=== PATIENT | male | born 1945 | race Caucasian/White ===

== ENCOUNTER → 2016-07-05 | Outpatient (CLI) | payer BC ==
[~2016-07-05] MED LIST: ASCO10003 PO; CALC-20 PO; CLC6 PO; CYAN100020 PO; LSN5 PO; LSX40 PO; SYMIN160 INH; UMEC1INH INH; WARF-246 PO
--- NOTE | 2016-07-05 11:29 | DIAGNOSTIC IMAGING REPORT ---
ABDOMINAL AORTIC ULTRASOUND CLINICAL HISTORY: Aneurysm of abdominal aorta. COMPARISON STUDY: Abdominal aortic ultrasound October 17, 2009 and April 20, 2013. FINDINGS: There is extensive atherosclerotic plaque of the abdominal aorta. The proximal abdominal aorta measures 2.8 x 2.9 cm. The mid abdominal aorta measures 2.2 x 2.2 cm. The mid to distal abdominal aorta measures 4.2 x 3.8 cm. This has minimally increased since exam of April 20, 2013 when it measured 3.8 cm in maximal dimension. IMPRESSION: Minimal increase in size of a 4.2 cm infrarenal abdominal aortic aneurysm since exam of April 20, 2013. Electronically signed by: Ludin Whitfield M.D. 07/05/2016 11:27 AM Dictated Date/Time: 07/05/2016 11:22 AM
== END | disposition home or self-care (01) ==
LOC: C.ULTR 10:26
PROVIDERS: ATTEND Internal Medicine
DX: I71.4 Abdominal aortic aneurysm, without rupture (principal)

== ENCOUNTER → 2017-01-08 | Day surgery (SDC) | payer BC ==
[2016-12-31 13:32] VITALS: Ht 180.3 cm; Wt 100.0 kg
[~2017-01-08] VITALS: Ht 180.3 cm; Wt 100.0 kg
[~2017-01-08] MED LIST changes: +500ML BSS 0.3ML EPI 1:1000PF IRRIG ONE; +ACETAMINOPHEN 325 MG TAB PO PRN; +AMVISC PLUS 0.8ML SYRINGE INT OCU ONE; +ATROPINE SULFATE 0.1 MG/ML 5ML SYR IV PRN; +AcetaZOLAMIDE 250 MG TAB PO SCH; +BETAXOLOL HCL 0.25% OP SUSP PER DROP CHARGE OPR SCH; +BRIMONIDINE TART 0.2% OP SOLN PER DROP CHARGE ONE; +BSS FLUSH ONE; +ENDOCOAT 0.85ML SYRINGE INT OCU ONE; +EpHEDrine SULFATE INJ 50 MG/ML AMP IV PRN; +EpINEphrine INJ 1MG/ML AMP 1 MG/ML AMP ONE; +LACTATED RINGER'S 1000ML 500 ML IV SCH; +LIDOCAINE 4% OP SOLN DROP CHARGE ONE; +LIDOCAINE 4% OP SOLN DROP CHARGE OPR SCH; +LIDOCAINE HCL 1% MPF 2 ML VIAL ONE; +MIDAZOLAM HCL 1 MG/ML 2ML VIAL ONE; +MIX: 4ML BSS 1ML EPI 1:1000 PF INSTIL ONE; +MOXIFLOXACIN OPH SOLN PER DROP CHARGE ONE; +OCUCOAT 1 ML SOLN IO ONE; +POVIDONE-IODINE OP SOLN 30 ML BTL ONE; +PROPARACAINE 0.5% OP SOLN PER DROP CHARGE OPR SCH; +TOBRAMYCIN/DEXAMETHASONE OPH OINT PER APPLN CHARGE ONE
--- NOTE | 2017-01-08 09:53 | History & Physical Bridge - SC ---
H&P Re-Evaluation Bridge Note: I have examined the patient, reviewed the History & Physical and in the interval since the performance of the History & Physical I have noted the following changes of clinical significance: No changes noted
[2017-01-08] MEDS: PHENYLEPHRINE HCL 2.5% OP SOLN PER DROP CHARGE OPR SCH ×2 (11:04→11:10)
[2017-01-08] MEDS: TROPICAMIDE 1% OP SOLN PER DROP CHARGE OPR SCH ×2 (11:05→11:10)
[2017-01-08] MEDS: CYCLOPENTOLATE HCL 1% OP SOLN PER DROP CHARGE OPR SCH ×2 (11:06→11:11)
[2017-01-08] MEDS: MOXIFLOXACIN OPH SOLN PER DROP CHARGE OPR SCH ×2 (11:09→11:17)
--- NOTE | 2017-01-08 11:41 | Discharge Instructions-SurgCtr ---
Discharge Instructions Date of Service Jan 08, 2017. Visit Reason for Visit: Right Cataract Discharge Discharge Diagnosis / Problem: lens implant right eye Discharge Goals Goal(s): Improve function Activity Recommendations Activity Limitations: resume your previous activity Lifting Limitations: no more than 10 pounds Exercise/Sports Limitations: gradually increase as tolerated May Resume Sexual Activity: when tolerated Shower/Bathe: tomorrow Driving or Machine Use: resume 1 day after discharge Anesthesia . Post Anesthesia Instructions: If you have had General Anesthesia or IV Sedation: * Do not drive today. * Resume driving when surgeon permits. * Do not make important decisions or sign legal documents today. * Call surgeon for: 1. Temperature elevations greater than 101 degrees F. 2. Uncontrollable pain. 3. Excessive bleeding. 4. Persistent nausea and vomiting. 5. Medication intolerance (nausea, vomiting or rash). * For nausea and vomiting use only clear liquids such as: tea, soda, bouillon until nausea subsides, then gradually increase diet as tolerated. * If you have any concerns or questions, call your surgeon's office. If physician is unavailable and it is an emergency, call 911 or go to the nearest emergency room. . Instructions / Follow-Up Instructions / Follow-Up ACTIVITY RECOMMENDATIONS: * Light activities. * Mild irritation and blurred vision are common for the first few days. * You may walk outside, read, watch television. * Redness around the white part of the eye is common. MEDICATIONS: Resume previous medications unless instructed otherwise by your surgeon. * Take white Diamox (Acetazolamide) tablet at 2 pm today. Start all eye drops at 2 pm today: * Eye drops (today and tomorrow): Prednisone - one drop in operative eye every 3 hours while awake Ofloxacin - one drop in operative eye every 3 hours while awake SPECIAL CARE INSTRUCTIONS: * Tape plastic shield over eye to sleep at night. Call your doctor at with any concerns or problems. FOLLOW UP VISIT: Follow-up with Dr Sultana at [place] office as scheduled. Diet Recommendations Home Diet: no limitations Procedures Procedures Performed: cataract extraction with lens implant Pending Studies Studies pending at discharge: no Medical Emergencies . Who to Call and When: Medical Emergencies: If at any time you feel your situation is an emergency, please call 911 immediately. . Non-Emergent Contact Non-Emergency issues call your: Advertising Sales Agent Call Non-Emergent contact if: your pain is not controlled [phone] . . "Provider Documentation" section prepared by Tej Sultana. .
--- NOTE | 2017-01-08 11:43 | [facility] Operative Report ---
Operative Report Date of Service Jan 08, 2017. Operative Report 1. PREOPERATIVE DIAGNOSIS: Senile nuclear cataract, right eye. 2. POSTOPERATIVE DIAGNOSIS: Senile nuclear cataract, right eye. 3. PROCEDURE: Phacoemulsification of right cataract with posterior chamber lens implant, type Bausch [employer] Lomb, model MI60L, power +18.5 diopters. ANESTHESIA: Local standby. SURGEON: Dr. Sultana. COMPLICATIONS: None. OPERATING TIME: 10 minutes. 4. OPERATION AND FINDINGS: DESCRIPTION OF PROCEDURE: The right pupil was dilated. The anesthetic was administered using a topical technique. The right eye was prepped and draped. A speculum was placed. A clear corneal incision was formed. The chamber was filled with Amvisc Plus and Endocoat. Epinephrine solution was used. A paracentesis was placed. A capsulorrhexis was performed. The nucleus was hydrodissected. The lens was removed with phacoemulsification. Time was 6.90 seconds. The aspiration unit was used to remove the cortex. The capsule was filled with Amvisc Plus. The lens implant was folded and placed into the capsule. The incision was hydrated. The Amvisc was aspirated. The wound was secure. The chamber was deep. The pupil was round. Brimonidine, TobraDex ointment and Vigamox solution were placed. The speculum was removed. The patient was returned to the Recovery Room in stable condition. I attest to the content of the Intraoperative Record and any orders documented therein. Any exceptions are noted below. The scribe's documentation has been prepared in my presence, under my direction and personally reviewed by me in its entirety. I confirm that the note above accurately reflects all work, treatment, procedures, and medical decision making performed by me. I personally scribed for Tej Sultana M.D. ([email or web address]) on 01/08/17 at 11:43. Electronically submitted by Mena Waller ([email or web address]).
[2017-01-08 12:08] VITALS: BP 156/84; PULSE 76; O2SAT 95
--- NOTE | 2017-01-08 12:10 | Anesthesia Progress Nt - [facility] ---
Anesthesia Post Op Note Date & Time Jan 08, 2017 at 12:10 Vital Signs Pain Intensity: 0 Vital Signs Past 12 Hours Date Time Temp Pulse Resp B/P (MAP) Pulse Ox O2 Delivery O2 Flow Rate FiO2 01/08/17 12:08 76 16 156/84 (108) 95 Room Air 01/08/17 11:45 36.6 68 16 122/72 (89) 97 Room Air 01/08/17 10:57 36.8 71 18 154/85 (108) 95 Room Air Notes Mental Status: alert / awake / arousable, participated in evaluation Pt Amnestic to Procedure: Yes Nausea / Vomiting: adequately controlled Pain: adequately controlled Airway Patency, RR, SpO2: stable & adequate BP & HR: stable & adequate Hydration State: stable & adequate Anesthetic Complications: no major complications apparent
== END | disposition home or self-care (01) ==
LOC: X.SURG 10:31
PROVIDERS: ATTEND Specialist
DX: H25.11 Age-related nuclear cataract, right eye (principal); J44.9 Chronic obstructive pulmonary disease, unspecified; I10 Essential (primary) hypertension; I48.91 Unspecified atrial fibrillation; Z79.01 Long term (current) use of anticoagulants; E66.9 Obesity, unspecified; Z87.891 Personal history of nicotine dependence

== ENCOUNTER → 2017-01-13 | Day surgery (SDC) | payer BC ==
[~2017-01-13] VITALS: Ht 180.3 cm; Wt 100.0 kg
[~2017-01-13] MED LIST changes: -500ML BSS 0.3ML EPI 1:1000PF IRRIG ONE; -ACETAMINOPHEN 325 MG TAB PO PRN; -AMVISC PLUS 0.8ML SYRINGE INT OCU ONE; -AcetaZOLAMIDE 250 MG TAB PO SCH; -BETAXOLOL HCL 0.25% OP SUSP PER DROP CHARGE OPR SCH; -BRIMONIDINE TART 0.2% OP SOLN PER DROP CHARGE ONE; -BSS FLUSH ONE; -ENDOCOAT 0.85ML SYRINGE INT OCU ONE; -EpINEphrine INJ 1MG/ML AMP 1 MG/ML AMP ONE; -LACTATED RINGER'S 1000ML 500 ML IV SCH; -LIDOCAINE 4% OP SOLN DROP CHARGE ONE; -LIDOCAINE 4% OP SOLN DROP CHARGE OPR SCH; -LIDOCAINE HCL 1% MPF 2 ML VIAL ONE; +LIDOCAINE HCL 2% 2 ML VIAL (20MG/ML) ONE; -MIDAZOLAM HCL 1 MG/ML 2ML VIAL ONE; -MIX: 4ML BSS 1ML EPI 1:1000 PF INSTIL ONE; -MOXIFLOXACIN OPH SOLN PER DROP CHARGE ONE; -OCUCOAT 1 ML SOLN IO ONE; -POVIDONE-IODINE OP SOLN 30 ML BTL ONE; -PROPARACAINE 0.5% OP SOLN PER DROP CHARGE OPR SCH; +PROPOFOL IV EMULSION 10 MG/ML 20 ML VIAL IV ONE; +SODIUM CHLORIDE 0.9% 500ML 500 ML IV ONE; -TOBRAMYCIN/DEXAMETHASONE OPH OINT PER APPLN CHARGE ONE
[2017-01-13 10:56] VITALS: Ht 180.3 cm; Wt 100.0 kg
--- NOTE | 2017-01-13 11:01 | Endo History and Physical ---
History & Physical Date of Service: Jan 13, 2017. Chief Complaint: History of colon polyps Referring Physician: Dr. Salazar History of Present Illness 71 yo CM who presents for colonoscopy secondary to history of colon polyps. Past Medical History Atrial Fibrillation, CHF, COPD Past Surgical History Hx Cardiac Surgery: No Hx Internal Defibrillator: No Hx Pacemaker: No Hx Abdominal Surgery: No Hx of Implantable Prosthesis: No Hx Post-Op Nausea and Vomiting: No Hx Cancer Surgery: No Hx Thoracic Surgery: No Hx Orthopedic: No Hx Urinary Tract Surgery: No Family History Colon CA Social History Smoking Status: Former Smoker Hx Substance Use: No Hx Alcohol Use: Yes (~2 BEERS 4X/WEEK) Allergies Coded Allergies: No Known Allergies (Verified , 01/13/17) Current Medications Reported Home Medications Medications Dose Route/Sig Max Daily Dose Days Date Category Dose Instructions Warfarin Sodium 5 Mg Tab 2.5 Mg PO 3XWK 08/22/15 Reported MON,WED,FRI Warfarin Sodium 5 Mg Tab 5 Mg PO 5XWK 08/22/15 Reported SUN,TUES,THURS,SAT Incruse Ellipta (Umeclidinium [place]) 62.5 Mcg/Inh Inh 1 Puff INH NOON 08/22/15 Reported Lisinopril 5 Mg Tab 2.5 Mg PO NOON 08/22/15 Reported Furosemide 40 Mg Tab 40 Mg PO NOON 08/22/15 Reported Vitamin B12 (Cyanocobalamin) 1,000 Mcg Tab 5,000 Mcg PO DAILY 05/25/14 Reported Symbicort 160/4.5 Inhaler (Budesonide/Formoterol Fumarate) Aero 2 Puffs INH BID 05/25/14 Reported Colcrys (Colchicine) 0.6 Mg Tab 0.6 Mg PO DAILY PRN 05/25/14 Reported Calcium 600 + D (Calcium Carbonate-Vitamin D) 1 Tab Tab 1 Tab PO DAILY 05/25/14 Reported Vitamin C (Ascorbic Acid) 1,000 Mg Tab 1,000 Mg PO DAILY 05/10/14 Reported Vital Signs Weight (Kilograms): 100.00 Height (Feet): 5 Height (Inches): 11 Physical Exam General Appearance: WD/WN, no apparent distress Respiratory/Chest: Auscultation: breath sounds normal Cardiovascular: Heart Auscultation: RRR Abdomen: Bowel Sounds: normal Inspection & Palpation: soft, non-distended, no tenderness, guarding & rebound Assessment and Plan Assessment: 71 yo CM who presents for colonoscopy secondary to history of colon polyps. Plan: Proceed with colonoscopy.
--- NOTE | 2017-01-13 11:52 | GI REPORT ---
Procedure Date: 01/13/2017 11:20 AM Procedure: Colonoscopy Indications: High risk colon cancer surveillance: Personal history of colonic polyps Medicines: Monitored Anesthesia Care Complications: No immediate complications. Estimated Blood Loss: Estimated blood loss: none. Procedure: Pre-Anesthesia Assessment: - Prior to the procedure, a History and Physical was performed, and patient medications and allergies were reviewed. The patient's tolerance of previous anesthesia was also reviewed. The risks and benefits of the procedure and the sedation options and risks were discussed with the patient. All questions were answered, and informed consent was obtained. Prior Anticoagulants: The patient has taken Coumadin (warfarin), last dose was 3 days prior to procedure. ASA Grade Assessment: III - A patient with severe systemic disease. After reviewing the risks and benefits, the patient was deemed in satisfactory condition to undergo the procedure. After I obtained informed consent, the scope was passed under direct vision. Throughout the procedure, the patient's blood pressure, pulse, and oxygen saturations were monitored continuously. The scope was introduced through the anus and advanced to the terminal ileum. The colonoscopy was performed without difficulty. The patient tolerated the procedure well. The quality of the bowel preparation was good. The terminal ileum, ileocecal valve, appendiceal orifice, and rectum were photographed. Findings: Multiple small-mouthed diverticula were found in the sigmoid colon. Non-bleeding internal hemorrhoids were found during retroflexion. The hemorrhoids were small. Impression: - Diverticulosis in the sigmoid colon. - Non-bleeding internal hemorrhoids. - No specimens collected. Recommendation: - Resume previous diet. - Continue present medications. - Repeat colonoscopy in 5 years for surveillance. - Return to primary care physician as previously scheduled. Vladislav Hale, 01/13/2017 11:51:55 AM This report has been signed electronically. Note Initiated On: 01/13/2017 11:20 AM I attest to the content of the Intraoperative Record and orders documented therein, exceptions below
--- NOTE | 2017-01-13 11:54 | Discharge Instructions ---
Endoscopy Patient Instructions Date / Procedure(s) Performed Jan 13, 2017. Colonoscopy Allergy Information Coded Allergies: No Known Allergies (Verified , 01/13/17) Discharge Date / Findings Jan 13, 2017. Diverticulosis Internal hemorrhoids Medication Instructions Stopped Medication(s): off Coumadin for 3 days OK to resume all medications today as prescribed Reported Home Medications Medications Dose Route/Sig Max Daily Dose Days Date Category Dose Instructions Warfarin Sodium 5 Mg Tab 2.5 Mg PO 3XWK 08/22/15 Reported MON,WED,FRI Warfarin Sodium 5 Mg Tab 5 Mg PO 5XWK 08/22/15 Reported SUN,TUES,THURS,SAT Incruse Ellipta (Umeclidinium [place]) 62.5 Mcg/Inh Inh 1 Puff INH NOON 08/22/15 Reported Lisinopril 5 Mg Tab 2.5 Mg PO NOON 08/22/15 Reported Furosemide 40 Mg Tab 40 Mg PO NOON 08/22/15 Reported Vitamin B12 (Cyanocobalamin) 1,000 Mcg Tab 5,000 Mcg PO DAILY 05/25/14 Reported Symbicort 160/4.5 Inhaler (Budesonide/Formoterol Fumarate) Aero 2 Puffs INH BID 05/25/14 Reported Colcrys (Colchicine) 0.6 Mg Tab 0.6 Mg PO DAILY PRN 05/25/14 Reported Calcium 600 + D (Calcium Carbonate-Vitamin D) 1 Tab Tab 1 Tab PO DAILY 05/25/14 Reported Vitamin C (Ascorbic Acid) 1,000 Mg Tab 1,000 Mg PO DAILY 05/10/14 Reported Provider Instructions Activity Restrictions - No exercising or heavy lifting for 24 hours. - Do not drink alcohol the day of the procedure. - Do not drive a car or operate machinery until the day after the procedure. - Do not make any important decisions or sign important papers in 24 hours after the procedure. Following Day: - Return to full activity which may include returning to work/school. Diet Start your diet with liquids and light foods (jello, soup, juice, toast). Then eat your usual diet if not nauseated. Treatment For Common After Affects For mild abdominal pain, bloating, or excessive gas: - Rest - Eat lightly - Lie on right side Follow-Up Information Follow-up with Dr. Salazar as scheduled Anesthesia Information What You Should Know You have had a procedure that required some medicine to reduce anxiety and discomfort. This treatment is called moderate sedation. After receiving the treatment, you may be sleepy, but you will be able to breathe on your own. The effects of the treatment may last for several hours. Follow these instructions along with Activity/Diet recommendations noted above: * Do NOT do anything where dizziness or clumsiness would be dangerous. * Rest quietly at home today, then you can be up and about tomorrow. * Have a responsible person stay with you the rest of today. * You may have had an I.V. today. If so, you may take the dressing off later today. Recommendations Call your doctor if: * Trouble breathing * Continuous vomiting for more than 24 hours * Temperature above 101 degrees * Severe abdominal pain or bloating * Pain not relieved by pain medicine ordered * There is increased drainage or redness from any incision * A large amount of rectal bleeding greater than 2-3 tablespoons. (If you had a polyp/s removed or have hemorrhoids, a small amount of blood - from the rectum is to be expected.) * You have any unanswered questions or concerns. IN THE EVENT OF A SERIOUS EMERGENCY, GO TO THE NEAREST EMERGENCY ROOM Your discharge instructions were prepared by provider Vladislav Hale. Patient Instructions Signature Page Robert Luna Patient (or Guardian) Signature/Date: I have read and understand the instructions given to me by my caregivers. Caregiver/RN/Doctor Signature/Date: The above-named patient and/or guardian has received patient instructions on this date. + Original Patient Signature Page (only) stays with chart. Please make copy for patient.
--- NOTE | 2017-01-13 11:55 | Anesthesiology Progress Note ---
Anesthesia Post Op Note Date & Time Jan 13, 2017 at 11:55 Vital Signs Pain Intensity: 0 Vital Signs Past 12 Hours Date Time Temp Pulse Resp B/P (MAP) Pulse Ox O2 Delivery O2 Flow Rate FiO2 01/13/17 11:50 36.5 83 20 101/50 (67) 96 Room Air 01/13/17 11:01 36.1 87 20 147/82 (103) 96 Room Air Notes Mental Status: alert / awake / arousable, participated in evaluation Pt Amnestic to Procedure: Yes Nausea / Vomiting: adequately controlled Pain: adequately controlled Airway Patency, RR, SpO2: stable & adequate BP & HR: stable & adequate Hydration State: stable & adequate Anesthetic Complications: no major complications apparent
[2017-01-13 12:22] VITALS: BP 148/81; PULSE 77; O2SAT 95
== END | disposition home or self-care (01) ==
LOC: C.GI 10:23
PROVIDERS: ATTEND Internal Medicine
DX: Z12.11 Encounter for screening for malignant neoplasm of colon (principal); K57.90 Diverticulosis of intestine, part unspecified, without perforation or abscess without bleeding; K64.8 Other hemorrhoids; Z87.19 Personal history of other diseases of the digestive system; Z80.0 Family history of malignant neoplasm of digestive organs

== ENCOUNTER → 2017-01-29 | Day surgery (SDC) | payer BC ==
[2017-01-14 12:27] VITALS: Ht 180.3 cm; Wt 100.0 kg
[~2017-01-29] VITALS: Ht 180.3 cm; Wt 100.0 kg
[~2017-01-29] MED LIST changes: +500ML BSS 0.3ML EPI 1:1000PF IRRIG ONE; +ACETAMINOPHEN 325 MG TAB PO PRN; +AMVISC PLUS 0.8ML SYRINGE INT OCU ONE; +AcetaZOLAMIDE 250 MG TAB PO SCH; +BETAXOLOL HCL 0.25% OP SUSP PER DROP CHARGE OPL SCH; +BRIMONIDINE TART 0.2% OP SOLN PER DROP CHARGE ONE; +BSS FLUSH ONE; +ENDOCOAT 0.85ML SYRINGE INT OCU ONE; +EpINEphrine INJ 1MG/ML AMP 1 MG/ML AMP ONE; +LACTATED RINGER'S 1000ML 500 ML IV SCH; +LIDOCAINE 4% OP SOLN DROP CHARGE ONE; +LIDOCAINE 4% OP SOLN DROP CHARGE OPL SCH; +LIDOCAINE HCL 1% MPF 2 ML VIAL ONE; -LIDOCAINE HCL 2% 2 ML VIAL (20MG/ML) ONE; +MIDAZOLAM HCL 1 MG/ML 2ML VIAL ONE; +MIX: 4ML BSS 1ML EPI 1:1000 PF INSTIL ONE; +MOXIFLOXACIN OPH SOLN PER DROP CHARGE ONE; +POVIDONE-IODINE OP SOLN 30 ML BTL ONE; +PROPARACAINE 0.5% OP SOLN PER DROP CHARGE OPL SCH; -PROPOFOL IV EMULSION 10 MG/ML 20 ML VIAL IV ONE; -SODIUM CHLORIDE 0.9% 500ML 500 ML IV ONE; +TOBRAMYCIN/DEXAMETHASONE OPH OINT PER APPLN CHARGE ONE
[2017-01-29] MEDS: TROPICAMIDE 1% OP SOLN PER DROP CHARGE OPL SCH ×2 (10:10→10:14)
[2017-01-29] MEDS: PHENYLEPHRINE HCL 2.5% OP SOLN PER DROP CHARGE OPL SCH ×2 (10:11→10:14)
[2017-01-29] MEDS: CYCLOPENTOLATE HCL 1% OP SOLN PER DROP CHARGE OPL SCH ×2 (10:12→10:15)
[2017-01-29] MEDS: MOXIFLOXACIN OPH SOLN PER DROP CHARGE OPL SCH ×2 (10:13→10:15)
--- NOTE | 2017-01-29 10:33 | Discharge Instructions-SurgCtr ---
Discharge Instructions Date of Service Jan 29, 2017. Visit Reason for Visit: Cataract Left Eye Discharge Discharge Diagnosis / Problem: lens implant left eye Discharge Goals Goal(s): Improve function Activity Recommendations Activity Limitations: resume your previous activity Lifting Limitations: no more than 10 pounds Exercise/Sports Limitations: gradually increase as tolerated May Resume Sexual Activity: when tolerated Shower/Bathe: tomorrow Driving or Machine Use: resume 1 day after discharge Anesthesia . Post Anesthesia Instructions: If you have had General Anesthesia or IV Sedation: * Do not drive today. * Resume driving when surgeon permits. * Do not make important decisions or sign legal documents today. * Call surgeon for: 1. Temperature elevations greater than 101 degrees F. 2. Uncontrollable pain. 3. Excessive bleeding. 4. Persistent nausea and vomiting. 5. Medication intolerance (nausea, vomiting or rash). * For nausea and vomiting use only clear liquids such as: tea, soda, bouillon until nausea subsides, then gradually increase diet as tolerated. * If you have any concerns or questions, call your surgeon's office. If physician is unavailable and it is an emergency, call 911 or go to the nearest emergency room. . Instructions / Follow-Up Instructions / Follow-Up ACTIVITY RECOMMENDATIONS: * Light activities. * Mild irritation and blurred vision are common for the first few days. * You may walk outside, read, watch television. * Redness around the white part of the eye is common. MEDICATIONS: Resume previous medications unless instructed otherwise by your surgeon. * Take white Diamox (Acetazolamide) tablet at 1 pm today. Start all eye drops at 1 pm today: * Eye drops (today and tomorrow): Prednisone - one drop in operative eye every 3 hours while awake Ofloxacin - one drop in operative eye every 3 hours while awake SPECIAL CARE INSTRUCTIONS: * Tape plastic shield over eye to sleep at night. Call your doctor at with any concerns or problems. FOLLOW UP VISIT: Follow-up with Dr Sultana at [place] office as scheduled. Diet Recommendations Home Diet: no limitations Procedures Procedures Performed: cataract extraction with lens implant Pending Studies Studies pending at discharge: no Medical Emergencies . Who to Call and When: Medical Emergencies: If at any time you feel your situation is an emergency, please call 911 immediately. . Non-Emergent Contact Non-Emergency issues call your: Counter Top Assembler Call Non-Emergent contact if: your pain is not controlled [phone] . . "Provider Documentation" section prepared by Tej Sultana. .
--- NOTE | 2017-01-29 10:35 | [facility] Operative Report ---
Operative Report Date of Service Jan 29, 2017. Operative Report 1. PREOPERATIVE DIAGNOSIS: Senile nuclear cataract, left eye. 2. POSTOPERATIVE DIAGNOSIS: Senile nuclear cataract, left eye. 3. PROCEDURE: Phacoemulsification of left cataract with posterior chamber lens implant, type Bausch & Lomb, model MI60L, power +19.5 diopters. ANESTHESIA: Local standby. SURGEON: Dr. Sultana. COMPLICATIONS: None. OPERATING TIME: 10 minutes. 4. OPERATION AND FINDINGS: DESCRIPTION OF PROCEDURE: The left pupil was dilated. The anesthetic was administered using a topical technique. The left eye was prepped and draped. A speculum was placed. A clear corneal incision was formed. The chamber was filled with Amvisc Plus and Endocoat. Epinephrine solution was used. A paracentesis was placed. A capsulorrhexis was performed. The nucleus was hydrodissected. The lens was removed with phacoemulsification. Time was 4.87 seconds. The aspiration unit was used to remove the cortex. The capsule was filled with Amvisc Plus. The lens implant was folded and placed into the capsule. The incision was hydrated. The Amvisc was aspirated. The wound was secure. The chamber was deep. The pupil was round. Brimonidine, TobraDex ointment and Vigamox solution were placed. The speculum was removed. The patient was returned to the Recovery Room in stable condition. I attest to the content of the Intraoperative Record and any orders documented therein. Any exceptions are noted below. The scribe's documentation has been prepared in my presence, under my direction and personally reviewed by me in its entirety. I confirm that the note above accurately reflects all work, treatment, procedures, and medical decision making performed by me. I personally scribed for Tej Sultana M.D. ([email or web address]) on 01/29/17 at 10:35. Electronically submitted by Mena Waller ([email or web address]).
[2017-01-29 10:38] VITALS: TEMP 36.6
--- NOTE | 2017-01-29 10:46 | Anesthesia Progress Nt - [facility] ---
Anesthesia Post Op Note Date & Time Jan 29, 2017 at 10:45 Vital Signs Pain Intensity: 0 Vital Signs Past 12 Hours Date Time Temp Pulse Resp B/P (MAP) Pulse Ox O2 Delivery O2 Flow Rate FiO2 01/29/17 10:38 36.6 73 20 145/90 (108) 97 Room Air 01/29/17 10:05 36.7 83 16 130/72 (91) 95 Room Air Notes Mental Status: alert / awake / arousable, participated in evaluation Pt Amnestic to Procedure: Yes Nausea / Vomiting: adequately controlled Pain: adequately controlled Airway Patency, RR, SpO2: stable & adequate BP & HR: stable & adequate Hydration State: stable & adequate Anesthetic Complications: no major complications apparent
[2017-01-29 10:58] VITALS: BP 146/78; PULSE 77; O2SAT 96
== END | disposition home or self-care (01) ==
LOC: X.SURG 08:00
PROVIDERS: ATTEND Specialist
DX: H25.12 Age-related nuclear cataract, left eye (principal); I48.91 Unspecified atrial fibrillation; E66.9 Obesity, unspecified; Z68.30 Body mass index [BMI] 30.0-30.9, adult; Z98.41 Cataract extraction status, right eye; Z79.01 Long term (current) use of anticoagulants; Z79.899 Other long term (current) drug therapy; Z87.891 Personal history of nicotine dependence

== ENCOUNTER → 2017-06-25 | Outpatient (CLI) | payer BC ==
[~2017-06-25] MED LIST changes: -500ML BSS 0.3ML EPI 1:1000PF IRRIG ONE; -ACETAMINOPHEN 325 MG TAB PO PRN; -AMVISC PLUS 0.8ML SYRINGE INT OCU ONE; -ATROPINE SULFATE 0.1 MG/ML 5ML SYR IV PRN; -AcetaZOLAMIDE 250 MG TAB PO SCH; -BETAXOLOL HCL 0.25% OP SUSP PER DROP CHARGE OPL SCH; -BRIMONIDINE TART 0.2% OP SOLN PER DROP CHARGE ONE; -BSS FLUSH ONE; -ENDOCOAT 0.85ML SYRINGE INT OCU ONE; -EpHEDrine SULFATE INJ 50 MG/ML AMP IV PRN; -EpINEphrine INJ 1MG/ML AMP 1 MG/ML AMP ONE; -LACTATED RINGER'S 1000ML 500 ML IV SCH; -LIDOCAINE 4% OP SOLN DROP CHARGE ONE; -LIDOCAINE 4% OP SOLN DROP CHARGE OPL SCH; -LIDOCAINE HCL 1% MPF 2 ML VIAL ONE; -MIDAZOLAM HCL 1 MG/ML 2ML VIAL ONE; -MIX: 4ML BSS 1ML EPI 1:1000 PF INSTIL ONE; -MOXIFLOXACIN OPH SOLN PER DROP CHARGE ONE; -POVIDONE-IODINE OP SOLN 30 ML BTL ONE; -PROPARACAINE 0.5% OP SOLN PER DROP CHARGE OPL SCH; -TOBRAMYCIN/DEXAMETHASONE OPH OINT PER APPLN CHARGE ONE
[2017-06-25 12:44] LABS: ALT/SGPT 20 U/L (12-78); AST/SGOT 12 U/L (15-37); BLOOD UREA NITROGEN 21 mg/dl (7-18); CALCIUM 8.5 mg/dl (8.5-10.1); CARBON DIOXIDE 27 mmol/L (21-32); CREATININE 1.15 mg/dl (0.60-1.40); GLUCOSE 119 mg/dl (70-99); POTASSIUM 4.1 mmol/L (3.5-5.1); SODIUM 137 mmol/L (136-145)
== END | disposition home or self-care (01) ==
LOC: C.LAB1850 10:53
PROVIDERS: ATTEND Internal Medicine
DX: E78.00 Pure hypercholesterolemia, unspecified (principal); R73.9 Hyperglycemia, unspecified

== ENCOUNTER → 2017-07-08 | Outpatient (CLI) | payer BC ==
--- NOTE | 2017-07-08 11:28 | DIAGNOSTIC IMAGING REPORT ---
ABDOMINAL AORTIC ULTRASOUND CLINICAL HISTORY: Follow-up abdominal aortic aneurysm. COMPARISON STUDY: Abdominal ultrasound 07/05/2016. FINDINGS: Tortuous abdominal aorta containing calcified plaque. This measures a maximal diameter of 4 cm at the mid to distal location. This is similar to the prior study. IMPRESSION: No significant change in the 4 cm mid to distal abdominal aortic aneurysm. Electronically signed by: Julian Alexandre M.D. 07/08/2017 11:26 AM Dictated Date/Time: 07/08/2017 11:25 AM
== END | disposition home or self-care (01) ==
LOC: C.ULTR 10:36
PROVIDERS: ATTEND Internal Medicine
DX: I71.4 Abdominal aortic aneurysm, without rupture (principal)

== ENCOUNTER 2018-04-25 02:05 | Inpatient (IN) ==
[2018-04-25] MEDS ORDERED: MoRPHine SULFATE 4 MG/ML 1 ML CARP\\VIAL IV STA (02:30)
[2018-04-25 02:38] LABS: Basophils # (auto) 0.01 K/uL (0-0.2); Basophils % (auto) 0.1 %; Eosinophils # (auto) 0.03 K/uL (0-0.5); Eosinophils % (auto) 0.4 %; Hematocrit (blood only) 48.8 % (42-52); Hemoglobin 16.1 g/dL (14.0-18.0); Immature Granulocytes # (auto) 0.02 K/uL (0.00-0.02); Immature Granulocytes % (auto) 0.2 %; Lymphocytes # (auto) 0.67 K/uL (1.2-3.4); Lymphocytes % (auto) 8.2 %; Mean Corpuscular Volume 94.6 fL (80-100); Mean Platelet Volume 9.8 fL (7.4-10.4); Monocytes # (auto) 0.96 K/uL (0.11-0.59); Monocytes % (auto) 11.7 %; Neutrophils % (auto) 79.4 %; Platelet Count 158 K/uL (130-400); RDW Coefficient of Variation 13.3 % (11.5-14.5); RDW Standard Deviation 45.9 fL (36.4-46.3); Red Blood Count 5.16 M/uL (4.7-6.1); White Blood Count 8.19 K/uL (4.8-10.8)
[2018-04-25 02:51] LABS: Alanine Aminotransferase 230 U/L (12-78); Albumin Level 3.6 gm/dl (3.4-5.0); Aspartate Aminotransferase 196 U/L (15-37); BUN Creatinine Ratio 14.9 (10-20); Blood Urea Nitrogen 18 mg/dl (7-18); Calcium 8.2 mg/dl (8.5-10.1); Carbon Dioxide 31 mmol/L (21-32); Chloride 99 mmol/L (98-107); Creatinine Clr Calc Pharmacy 64.9 ml/min; Est GFR (African American) 69.5; Glucose 121 mg/dl (70-99); Magnesium 2.2 mg/dl (1.8-2.4); Potassium 4.2 mmol/L (3.5-5.1); Sodium 135 mmol/L (136-145)
[2018-04-25 02:56] LABS: Albumin Globulin Ratio 0.9 (0.9-2); Alkaline Phosphatase 149 U/L (45-117); Bilirubin,Total 2.8 mg/dl (0.2-1); Globulin 3.8 gm/dl (2.5-4.0); Total Protein 7.4 gm/dl (6.4-8.2); Troponin I < 0.015 ng/ml (0-0.045)
[2018-04-25] MEDS ORDERED: IOVERSOL 100ml IV PRN (03:00)
[2018-04-25 03:15] LABS: INR 2.7 (0.9-1.1); Partial Thromboplastin Ratio 1.4; Partial Thromboplastin Time 36.7 Seconds (21.0-31.0); Prothrombin Time 26.2 Seconds (9.0-12.0)
[2018-04-25 04:19] LABS: Bilirubin Direct 2.2 mg/dl (0-0.2)
[2018-04-25 05:14] LABS: Appearance Urine Clear (Clear); Bilirubin Urine Negative (Negative); Blood Urine Negative (Negative); Color Urine Yellow; Glucose Urine UA Negative (Negative); Ketones Urine Negative (Negative); Leukocyte Esterase Urine Negative (Negative); Nitrite Urine Negative (Negative); Protein Urine Negative (Negative); Urobilinogen Urine Negative (Negative)
--- NOTE | 2018-04-25 06:09 | Emergency Department Note ---
History of Present Illness General Chief complaint: Abdominal Pain Stated complaint: GAS PAINS Time Seen by Provider: 04/25/18 02:18 History of Present Illness Maximum Pain Intensity: 8 This is a 73-year-old male who presents to the emergency department via private vehicle accompanied by with complaints of "gas pains". The patient notes that this evening around 8-9 PM he developed severe epigastric abdominal pain that also radiates into his chest. He notes that he took 2 Tylenol but his symptoms persisted. He denies any nausea or vomiting. No history of NM or recent eating spicy foods. He does note a history of A. fib and is currently anticoagulated on Coumadin. Last INR of 2.4. No alleviating or exacerbating factors of the abdominal pain. Gallbladder is present. Home Medications Home Medications Medication Instructions Recorded Confirmed Type budesonide-formoterol [Symbicort] 2 puff INHALATION BID 04/25/18 04/25/18 History furosemide [Lasix] 40 mg PO DAILY 04/25/18 04/25/18 History lisinopril 2.5 mg PO DAILY 04/25/18 04/25/18 History umeclidinium [Incruse Ellipta] 1 inh INHALATION DAILY 04/25/18 04/25/18 History warfarin [Coumadin] 2.5 mg PO 4XWK 04/25/18 04/25/18 History warfarin [Coumadin] 5 mg PO 3XWK 04/25/18 04/25/18 History Allergies Allergy/AdvReac Type Severity Reaction Status Date / Time No Known Allergies Allergy Verified 04/25/18 02:37 Past Med/Surg History Medical History CHF (congestive heart failure) (Resolved) COPD (chronic obstructive pulmonary disease) (Chronic) Afib (Chronic) Surgical History Hx of cataract surgery Social History Preferred Language: Malawian Communication Ability: Effective Real Estate Coordinator Required: No Beliefs That Will Affect Care: None Current Living Situation: Spouse Other Information That Helps Us Care for You: No Feels Safe at Home: Yes Safety Concerns: Feels Safe At This Time Smoking Status: Former smoker Hx Alcohol Use: Yes Hx Substance Use: No Review of Systems A total of 10 systems reviewed and were otherwise negative Physical Exam Vital Signs Vital Signs - 24 hr 04/25/18 02:09 04/25/18 02:25 04/25/18 02:27 Temperature 36.8 C Temperature Source Oral Sepsis Action Taken by Nursing No Action Required Pulse Rate 92 H Pulse Rate [Finger] 78 Respiratory Rate 24 18 Blood Pressure 185/99 H Blood Pressure [Left Arm] 175/87 H Blood Pressure Mean 127 Blood Pressure Mean [Left Arm] 116 Pulse Oximetry 92 91 91 Oxygen Delivery Method Room Air Room Air Room Air 04/25/18 04:00 04/25/18 06:22 04/25/18 08:50 Temperature 36.7 C Temperature Source Oral Sepsis Action Taken by Nursing Pulse Rate Pulse Rate [Finger] 81 75 68 Respiratory Rate 18 18 20 Blood Pressure Blood Pressure [Left Arm] 150/99 H 140/96 140/73 Blood Pressure Mean Blood Pressure Mean [Left Arm] 116 110 95 Pulse Oximetry 94 95 94 Oxygen Delivery Method Room Air Room Air Room Air VITAL SIGNS - Vital signs and nursing notes were reviewed. Hypertensive. Otherwise stable. GENERAL -73-year-old male appearing his stated age who is in no acute distress. Communicates well with provider and answers questions appropriately. SKIN - Without rashes. No meningeal or petechial rash HEAD - NC/AT. EYES - PERRL with EOMI bilaterally. Sclera anicteric. EARS - No deformities of external structures noted on gross examination bilaterally. NOSE - Midline and without cyanosis. No epistaxis or purulent drainage noted. MOUTH/OROPHARYNX - Without perioral cyanosis. NECK - Neck with FROM. Supple to palpation. No lymphadenopathy noted. No nuchal rigidity. LUNGS - Chest wall symmetric without accessory muscle use, intercostals retractions, or central cyanosis. Normal vesicular breath sounds CTA B/L. No wheezes, rales, or rhonchi appreciated. CARDIAC - RRR with S1/S2. No murmur, rubs, or gallops appreciated. ABDOMEN - Abdominal contour normal without pulsations or visible masses. BS normoactive all four quadrants. Abdomen is slightly distended, without evidence of surgical abdomen. It is soft. There is tenderness to palpation in the epigastric region. EXTREMITIES - No clubbing or peripheral cyanosis. NEUROLOGIC - Cranial nerves II through XII grossly intact. PSYCH - A&O, and cooperates fully with examiner. Pt is very pleasant and interacts well with examiner. Course Administered Medications Discontinued Medications Ioversol (Optiray 320 100ml) 93 ml IV ONCE PRN PRN Reason: Interaction Checking Stop: 04/29/18 02:59 Last Admin: 04/25/18 03:00 Dose: 93 ml Documented by: [id number] Morphine Sulfate (Morphine Sulfate) 4 mg IV NOW STA Stop: 04/25/18 02:31 Last Admin: 04/25/18 02:37 Dose: 4 mg Documented by: [id number] Medical Decision Making Laboratory Data Result diagrams: 04/25/18 02:23 04/25/18 02:24 Lab Results 04/25/18 04/25/18 04/25/18 Range/Units 02:23 02:24 02:24 WBC 8.19 (4.8-10.8) K/uL RBC 5.16 (4.7-6.1) M/uL Hgb 16.1 (14.0-18.0) g/dL Hct 48.8 (42-52) % MCV 94.6 (80-100) fL MCH 31.2 (25-34) pg MCHC 33.0 (32-36) g/dL RDW Std Deviation 45.9 (36.4-46.3) fL RDW Coeff of Cameron 13.3 (11.5-14.5) % Plt Count 158 (130-400) K/uL MPV 9.8 (7.4-10.4) fL Immature Gran % (Auto) 0.2 % Neut % (Auto) 79.4 % Lymph % (Auto) 8.2 % [place] % (Auto) 11.7 % Eos % (Auto) 0.4 % Baso % (Auto) 0.1 % Immature Gran # (Auto) 0.02 (0.00-0.02) K/uL Neut # (Auto) 6.50 (1.4-6.5) K/uL Lymph # (Auto) 0.67 L (1.2-3.4) K/uL [place] # (Auto) 0.96 H (0.11-0.59) K/uL Eos # (Auto) 0.03 (0-0.5) K/uL Baso # (Auto) 0.01 (0-0.2) K/uL PT 26.2 H (9.0-12.0) Seconds INR 2.7 H (0.9-1.1) APTT 36.7 H (21.0-31.0) Seconds PTT Ratio 1.4 Sodium 135 L (136-145) mmol/L Potassium 4.2 (3.5-5.1) mmol/L Chloride 99 (98-107) mmol/L Carbon Dioxide 31 (21-32) mmol/L Anion Gap 5.0 (3-11) BUN 18 (7-18) mg/dl Creatinine 1.18 (0.6-1.4) mg/dl Est Cr Clr Drug Dosing 64.9 ml/min Est GFR ( Amer) 69.5 Est GFR (Non-Af Amer) 60.0 BUN/Creatinine Ratio 14.9 (10-20) Glucose 121 H (70-99) mg/dl Calcium 8.2 L (8.5-10.1) mg/dl Magnesium 2.2 (1.8-2.4) mg/dl Total Bilirubin 2.8 H (0.2-1) mg/dl Direct Bilirubin 2.2 H (0-0.2) mg/dl AST 196 H (15-37) U/L ALT 230 H (12-78) U/L Alkaline Phosphatase 149 H (45-117) U/L Troponin I < 0.015 (0-0.045) ng/ml Total Protein 7.4 (6.4-8.2) gm/dl Albumin 3.6 (3.4-5.0) gm/dl Globulin 3.8 (2.5-4.0) gm/dl Albumin/Globulin Ratio 0.9 (0.9-2) Lipase 100 (73-393) U/L Urine Color Urine Appearance (Clear) Urine pH (4.5-7.5) Ur Specific Bowers (1.000-1.030) Urine Protein (Negative) Urine Glucose (UA) (Negative) Urine Ketones (Negative) Urine Blood (Negative) Urine Nitrite (Negative) Urine Bilirubin (Negative) Urine Urobilinogen (Negative) Ur Leukocyte Esterase (Negative) Hep Bs Antigen (Neg) 04/25/18 04/25/18 Range/Units 02:24 05:03 WBC (4.8-10.8) K/uL RBC (4.7-6.1) M/uL Hgb (14.0-18.0) g/dL Hct (42-52) % MCV (80-100) fL MCH (25-34) pg MCHC (32-36) g/dL RDW Std Deviation (36.4-46.3) fL RDW Coeff of Cameron (11.5-14.5) % Plt Count (130-400) K/uL MPV (7.4-10.4) fL Immature Gran % (Auto) % Neut % (Auto) % Lymph % (Auto) % [place] % (Auto) % Eos % (Auto) % Baso % (Auto) % Immature Gran # (Auto) (0.00-0.02) K/uL Neut # (Auto) (1.4-6.5) K/uL Lymph # (Auto) (1.2-3.4) K/uL [place] # (Auto) (0.11-0.59) K/uL Eos # (Auto) (0-0.5) K/uL Baso # (Auto) (0-0.2) K/uL PT (9.0-12.0) Seconds INR (0.9-1.1) APTT (21.0-31.0) Seconds PTT Ratio Sodium (136-145) mmol/L Potassium (3.5-5.1) mmol/L Chloride (98-107) mmol/L Carbon Dioxide (21-32) mmol/L Anion Gap (3-11) BUN (7-18) mg/dl Creatinine (0.6-1.4) mg/dl Est Cr Clr Drug Dosing ml/min Est GFR ( Amer) Est GFR (Non-Af Amer) BUN/Creatinine Ratio (10-20) Glucose (70-99) mg/dl Calcium (8.5-10.1) mg/dl Magnesium (1.8-2.4) mg/dl Total Bilirubin (0.2-1) mg/dl Direct Bilirubin (0-0.2) mg/dl AST (15-37) U/L ALT (12-78) U/L Alkaline Phosphatase (45-117) U/L Troponin I (0-0.045) ng/ml Total Protein (6.4-8.2) gm/dl Albumin (3.4-5.0) gm/dl Globulin (2.5-4.0) gm/dl Albumin/Globulin Ratio (0.9-2) Lipase (73-393) U/L Urine Color Yellow Urine Appearance Clear (Clear) Urine pH 8.0 H (4.5-7.5) Ur Specific Bowers 1.030 (1.000-1.030) Urine Protein Negative (Negative) Urine Glucose (UA) Negative (Negative) Urine Ketones Negative (Negative) Urine Blood Negative (Negative) Urine Nitrite Negative (Negative) Urine Bilirubin Negative (Negative) Urine Urobilinogen Negative (Negative) Ur Leukocyte Esterase Negative (Negative) Hep Bs Antigen Neg (Neg) Imaging Data My Impression: Chest one view portable: Stable cardiomegaly with atelectasis. No acute process. Radiologist's Impression: CT ABDOMEN & PELVIS With Contrast: The gallbladder is decompressed with multiple gallstones identified. No CT evidence for pericholecystic fluid or biliary dilatation. Periportal lucency/edema is noted. There is a nonspecific finding but may be seen with hypervolemia, cholangitis or acute hepatitis. Please correlate with laboratory findings. The IVC is distended. Moderate stool in the ascending transverse colon. Mucosal prominence of the sigmoid colon is presumed related to underdistention. Subtle colitis is considered less likely but difficult to entirely exclude given this appearance. No bowel obstruction. No free intraperitoneal fluid or pneumoperitoneum. Normal caliber appendix, accounting for respiratory artifact in this region. Subsegmental linear presumed atelectasis at the lung bases. The liver, pancreas, spleen, adrenal glands and kidneys are otherwise without significant abnormality. Undulating abdominal aortic aneurysm measuring up to 4 cm in diameter. This is stable from abdominal aortic ultrasound 07/08/2017. No acute periaortic abnormality. No acute osseous or significant overlying soft tissue abnormality identified. Radiologist: Jared Hsieh MD Study ready at 03:22 and initial results transmitted at 03:44 US GALLBLADDER: Multiple gallstones noted. The gallbladder wall is upper limits of normal in caliber between 3 and 4 mm. However, the gallbladder is mildly distended which limits the sensitivity of this finding. Reported negative sonographic Seth sign. There is no biliary dilatation. The patient's age with the common bile duct measuring 7 mm. Findings do not definitive for acute cholecystitis. Please correlate with clinical findings. Functional radionuclide imaging may be helpful in clinically equivocal cases. No free fluid. The pancreas is not well-visualized. The liver is unremarkable. Right kidney is unremarkable without calcifications or hydronephrosis. Radiologist: Jared Hsieh MD Study ready at 04:49 and initial results transmitted at 05:17 MDM Narrative Patient was seen and evaluated as above in room B 10. Review was performed of nursing notes and vital signs. After obtaining a thorough history and physical examination the above work up was performed. He presents to us today with epigastric abdominal pain. This began around 8 or 9 PM this evening. He is nontoxic on examination and yield stable vital signs. He is afebrile. He is not jaundiced. He is tender in the epigastric region. A chest x-ray was performed and does reveal stable cardiomegaly with atelectasis. CT scan was obtained of the abdomen and pelvis with IV contrast. Results as above. There is periportal lucency/edema, and at this time the concern is he could have cholangitis/hepatitis/cholecystitis. Ultrasound was obtained. This does reveal multiple gallstones without definite evidence for acute cholecystitis. These were compared with his labs. There is no concerning leukocytosis or anemia. There is no evidence of kidney failure. Hypocalcemia noted. There is bilirubin elevation with total at 2.8. AST at 196 and ALT at 230. Troponin negative. A bedside EKG was performed and reveals atrial fibrillation with a rate of 81 bpm. Troponin negative. Urinalysis does not reveal infection. Hepatitis panel pending. Becuase of the location of pain and interval increase of bilirubin and LFT's felt that further inpatient workup was appropriate. I discussed the findings with the attending physician, as well as with Dr. Valverde of general surgery. At this time no indication for surgery. I discussed this then with Dr. Roque ([facility] Hospitalist). He will be admitted to medicine for further evaluation and management. Please refer to further documentation regarding his stay. Case was discussed with the attending physician. I attest that I have personally reviewed the patient medication list. I attest that I have reviewed the patient's blood pressure and it was found to b e elevated likely secondary to presentation. In the evaluation and treatment of this patient, the following differential diagnoses were considered: ASC, NM, Pneumonia, GERD, Cholecystitis, Ascending Cholangitis, Cholydocholithiasis, Bowel Obstruction, PE, Amongst Others. Impression & Plan Abdominal pain, acute, epigastric, LFT elevation, Elevated bilirubin Discharge Plan Visit Data *Final* Discharge Date/Time: 04/25/18 08:08 Chief Complaint: Abdominal Pain Stated Complaint: GAS PAINS ED Provider: Danni Vazquez ED Midlevel Provider: Vin Perez Discharge Problem: Abdominal pain, acute, epigastric, LFT elevation, Elevated bilirubin Patient Disposition: Admitted As Inpatient Condition: Good Discharge Instructions Interventions: ED Discharge Assessment Last Done: 04/25/18 08:08
--- NOTE | 2018-04-25 06:20 | History & Physical Report ---
Date of Service April 25, 2018 Assessment & Plan (1) Abdominal pain, acute, epigastric: 72 y/o male with a history of HTN, HLD, chronic a-fib, chronic diastolic CHF, COPD, BPH, gout, AAA, excessive alcohol intake. Presenting with mid to upper abdominal pain and distention. Denies nausea, vomiting, diarrhea, constipation. Describes a feeling of trapped gas in his abdomen. A CT of the abdomen demonstrated periportal edema which may represent cholangitis. An US demonstrated multiple gallstones, mild gallbladder distention, 7mm CBD without evidence of cholecystitis. Initial labs are notable for transaminitis and an elevated bilirubin which are new. 1) Abdominal pain - suspicion for developing cholangitis - will consult suregry and GI. MRCP ordered. Analgesics, Abx, NPO. 2) Chronic AF - anticoagulated with Coumadin - INR is therapeutic - does not require rate control agents 3) COPD - continue prescribed inhalers 4) Diastolic CHF - Lasix held penidng GI eval - gentle IVF provided - volume status bears monitoring 5) HTN/HLD - cont Lisinopril, HLD untreated 6) Excessive alcohol intake - PRN Ativan, thiamine, folic - does not have a history of withdrawal or DTs although he was repeatedly asking to be DCd home Full code - Coumadin prophylaxis Total time for this admit including review of labs, meds, imaging, records - discussion with pt and ER attending 40 min History of Present Illness Chief Complaint: 72 y/o male with a history of HTN, HLD, chronic a-fib, chronic diastolic CHF, COPD, BPH, gout, AAA, excessive alcohol intake. Presenting with mid to upper abdominal pain and distention. Denies nausea, vomiting, diarrhea, constipation. Describes a feeling of trapped gas in his abdomen. A CT of the abdomen demonstrated periportal edema which may represent cholangitis. An US demonstrated multiple gallstones, mild gallbladder distention, 7mm CBD without evidence of cholecystitis. Initial labs are notable for transaminitis and an elevated bilirubin which are new. PMH: 1) HTN 2) HLD 3) Chronic AF 4) Chronic diastolic CHF 5) COPD 6) BPH 7) gout 8) AAA - 4cm stable Surgical: Cataracts, I&D of a cyst Social: Quit smoking > 15 years ago, occasional beer Family: CA, CKD Primary Care Provider: Tej Salazar MD Allergies Allergy/AdvReac Type Severity Reaction Status Date / Time No Known Allergies Allergy Verified 04/25/18 02:37 Home Medications Home Medications Medication Instructions Recorded Confirmed Type budesonide-formoterol [Symbicort] 2 puff INHALATION BID 04/25/18 04/25/18 History furosemide [Lasix] 40 mg PO DAILY 04/25/18 04/25/18 History lisinopril 2.5 mg PO DAILY 04/25/18 04/25/18 History umeclidinium [Incruse Ellipta] 1 inh INHALATION DAILY 04/25/18 04/25/18 History warfarin [Coumadin] 2.5 mg PO 4XWK 04/25/18 04/25/18 History warfarin [Coumadin] 5 mg PO 3XWK 04/25/18 04/25/18 History Past Med/Surg History Medical History CHF (congestive heart failure) (Resolved) COPD (chronic obstructive pulmonary disease) (Chronic) Afib (Chronic) Surgical History Hx of cataract surgery Social History Feels Safe at Home: Yes Smoking Status: Former smoker Review of Systems Gen: Denies fevers, night sweats, rigors, fatigue, malaise, weight loss/gain ENT: Denies congestion, throat pain, hearing loss Eyes: Denies acute visual changes CV: Denies CP, palpitations Pulmonary: Denies SOB, cough, wheezing GI: Abdominal pain and distention as above Neuro: Denies acute or unilateral weakness, acute gait impairment, headache or acute visual changes Musculoskeletal: Denies joint pain, inflammation Endocrine: Denies polydipsia, polyuria Skin: Denies acute rashes or ulcers Physical Exam Vital Signs (Past 24 Hours): Last Vital Signs Temp 36.8 C 04/25/18 02:09 Pulse 81 04/25/18 04:00 Resp 18 04/25/18 04:00 BP 150/99 H 04/25/18 04:00 Pulse Ox 94 04/25/18 04:00 Physical Exam: General: AAO x 3, no distress ENT: No erythema or exudates, no thrush - broken capillaries are present about the tip of the nose Eyes: RYAN, EOMI Head and neck: Normocephalic, atraumatic, No JVD, neck is supple. Chest/heart: Nontender, S1,2, irr, no murmurs, no gallops Lungs: CTAB, no wheezing or crackles Abdomen: Distended abdomen which is nontender to palpation Neuro: AAO x 3, speech is clear, no unilateral weakness or loss of sensation, coordination intact Musculoskeletal: No joint inflammation, muscle tenderness, FROM Skin: No acute rashes or ulcers Extremities: No clubbing, cyanosis, edema Results & Data Diagnostic Findings US: Mutiple gallstones, mild gallbladder distention, 7mm CBD CT abdomen: Periportal edema which may represent cholangitis
--- NOTE | 2018-04-25 06:39 | CT Scan Report ---
CT abd pelvis IV con only CT DOSE: 891.90 mGy.cm HISTORY: Pain Epigastric abd pain TECHNIQUE: Multiaxial CT images of the abdomen and pelvis were performed following the use of intrave nous contrast. A dose lowering technique was utilized adhering to the principles of ALARA. COMPARISON STUDY: None. FINDINGS: Lung bases demonstrate dependent basilar atelectatic change. Liver is uniform throughout. S pleen is unremarkable. Pancreas is within normal limits. Gallstones are present within the gallbladder lumen. Kidneys and 8 uniformly. Mild perihepatic nephri c infiltrative change possibly age-related. 4 cm abdominal aortic aneurysm. Nonobstructive bowel monster asad. Scattered colonic diverticuli with no evidence for acute diverticulitis. Mild prostatic enlargem ent. The bladder is midline. Atherosclerotic change and ectasia of the iliac arterial vasculature. IMPRESSION: 1. No acute process of the abdomen or pelvis. 2. 4 cm aneurysm abdominal aorta. 3. Age-related changes throughout with no acute process identified. 4. Gallstones. The above report was generated using voice recognition software. It may contain grammatical, syntax or spelling errors. Electronically signed by: Michael Norman M.D. 04/25/2018 6:38 AM
--- NOTE | 2018-04-25 06:41 | XRay Report ---
XR chest 1V portable CLINICAL HISTORY: Epigastric abd pain pain COMPARISON STUDY: 01/05/2018 FINDINGS: Chronic basilar fibrotic change. Mild dependent basilar atelectasis. Mild increase in prominence of pulmonary vasculature. Moderate cardiomegaly. IMPRESSION: Pulmonary vascular congestion. Mild bibasilar platelike atelectasis. The above report was generated using voice recognition software. It may contain grammatical, syntax or spelling errors. Electronically signed by: Michael Norman M.D. 04/25/2018 6:39 AM
--- NOTE | 2018-04-25 07:04 | Ultrasound Report ---
US gallbladder HISTORY: Pain. Nausea. epigastric abd pain, LFT and Bilirubin elevation COMPARISON: None. FINDINGS: Pancreas: Poorly seen. Liver: Normal. Gallbladder: Gallstones. Gallbladder wall top normal at 3 mm. No pericholecystic fluid. Common bile duct: 7 mm. Right kidney. Normal. No evidence for hydronephrosis. IMPRESSION: Gallstones. Common bile duct 7 mm. Otherwise negative study. The above report was generated using voice recognition software. It may contain grammatical, syntax or spelling errors. Electronically signed by: Michael Norman M.D. 04/25/2018 7:02 AM
[2018-04-25] MEDS ORDERED: ONDANSETRON INJ 2 MG/ML 2 ML VIAL IV PRN (08:43)
[2018-04-25] MEDS ORDERED: HYDROmorphone INJ 0.5 MG/0.5 ML SYR IV PRN (08:43)
[2018-04-25] MEDS ORDERED: D5W AND LACTATED RINGERS 1,000 ML IV SCH (08:43)
[2018-04-25] MEDS ORDERED: cefTRIAXone SODIUM 1,000 MG/50 ML BAG IV SCH (08:43)
[2018-04-25] MEDS ORDERED: LORazepam 0.5 MG/1 ML VIAL IV PRN (08:43)
[2018-04-25 08:50] LABS: Hepatitis B Surface Antigen Neg (Neg)
[2018-04-25] MEDS ORDERED: UMECLIDINIUM INH SCH (09:00)
[2018-04-25 09:18] LABS: Hepatitis C IgG 13Yrs+Old_Rflx Neg (Neg)
--- NOTE | 2018-04-25 10:54 | Magnetic Resonance Report ---
Study: MRCP HISTORY: Pain. Nausea. FINDINGS: Liver is uniform. Gallstones are present. Spleen is unremarkable. Kidneys negative for hydr onephrosis. There is nondiagnostic study of the biliary and pancreatic ductal systems due to patient motion.. No evidence for significant distention of the biliary or pancreatic ductal systems. IMPRESSION: 1. Nondiagnostic study of the pancreatic and biliary ductal systems due to respiratory and somatic mo tion. 2. No significant distention of the biliary or pancreatic ductal systems. 3. Gallstones. 4. Study is otherwise unremarkable again within limitations of patient motion. Electronically signed by: Michael Norman M.D. 04/25/2018 10:52 AM
[2018-04-25] MEDS: cefTRIAXone SODIUM 1,000 MG in DEXTROSE 5% 50 ML IV SCH (10:59)
[2018-04-25] MEDS: FOLIC ACID 1 MG TAB PO SCH (11:00)
[2018-04-25] MEDS: BUDESONIDE/FORMOTEROL FUMARATE 160/4.5 60 PUFFS/INHALER INH SCH ×2 (11:00→21:02)
[2018-04-25] MEDS: LISINOPRIL 2.5 MG TAB PO SCH (11:01)
[2018-04-25] MEDS: THIAMINE HCL 100 MG TAB PO SCH (11:01)
[2018-04-25] MEDS: metroNIDAZOLE 500 MG/100 ML BAG IV SCH ×2 (11:41→17:53)
--- NOTE | 2018-04-25 15:28 | Hospitalist Progress Note ---
Date of Service April 25, 2018 Assessment & Plan (1) Abdominal pain, acute, epigastric: - Presented with acute epigastric pain, concern for ascending cholangitis/CBD obstruction. - CT A/P showed periportal edema, concern for cholangitis. - RUQ US showed multiple gallstones, mild gallbladder distention and 7 mm CBD stone. - LFTs elevated as noted below. - MRCP was limited due to resp/somatic motion but showed no significant distention of biliary or pancreatic ductal systems. - On Ceftriaxone/Flagyl for empiric coverage. - Currently NPO for possible procedure tomorrow; on gentle IV fluids at 60 ml/hr in setting of CHF. - Consulted GI for evaluation, will need ERCP on 04/26 if no improvement in LFTs on morning labs. (2) LFT elevation: - LFTs now elevated during this admission; no evidence of elevation in past on prior labwork. - GI work up as noted above. (3) COPD (chronic obstructive pulmonary disease): - Continue home Symbicort as prescribed. - Incruse is non-formulary, will hold. (4) Afib: - Chronic A. fib, rate controlled. - On Coumadin -- INR was therapeutic today at 2.7. - Will hold Coumadin for procedure. May need reversal agent in the AM prior to possible procedure. (5) Chronic diastolic heart failure: - Most recent TTE July 2017 showed EF 60-65%, severe biatrial dilation and mild mitral regurg. - Monitor net I/Os and daily weights. - Holding home Lasix 40 mg PO daily while NPO -- will need to restart if pt. develops resp distress/worsening hypoxia. - Continue Lisinopril as prescribed. (6) Hypoxia: - Developed hypoxia this afternoon, O2 sats 70's; now requiring 3L via NC. - May be related to pulm edema in setting of IV fluids; was visualized initially on CXR yesterday. - Will continue IV fluids at 60 cc/hr while NPO - Will need to resume home Lasix 40 mg PO daily for worsening hypoxia. (7) Pulmonary hypertension: - Per outpatient cardiology notes. (8) Hypertension: - Continue Lisinopril as prescribed. (9) Hyperlipidemia: - Not currently on statin agent. (10) CKD (chronic kidney disease) stage 2, GFR 60-89 ml/min: - Renally dose all medications. (11) ETOH abuse: - Thiamine 100 mg qAM and Folic acid 1 mg qAM. - Monitor for signs of withdrawal. (12) DVT prophylaxis: - Hold for possible procedure. Supervising Physician Co-Signing Physician Notes Attending attestation - Chart reviewed in detail, and care plan d/w BROOKE Suarez. I agree w/ the house components of her documentation. 73yo male with abnormal LFTs and abnormal imaging of biliary tree. Gen surg and GI consulted; recs appreciated. Remains on IV antibiotics to cover for possibility of cholecystitis and/or cholangitis. Vitals acceptable. John Adams MD Subjective Pt is stable overall today. He is requesting to go home, does not feel that he needs to be admitted. Denies abdominal pain, nausea/vomiting, diarrhea or constipation. Has chronic LE edema -- last dose of Lasix 40 mg PO was prior to admission on 04/24/18. Has chronic SOB and productive cough, is on room air. GI consulted to evaluate results of MRCP, recs pending. Review of Systems All systems reviewed & are unremarkable except as noted in HPI & below Constitutional: no fever, no chills and no weakness Respiratory: + cough, + dyspnea, + dyspnea on exertion and + sputum production; no wheezing Cardiovascular: + edema; no chest pain, no palpitations, no lightheadedness and no syncope Gastrointestinal: no abdominal pain, no nausea, no vomiting, no constipation and no diarrhea/loose stools Genitourinary (Male): no difficulty urinating Musculoskeletal: no joint pain Allergy / Immunological: no rash Physical Exam Vital Signs (Past 24 Hours): Last Vital Signs Temp 36.7 C 04/25/18 08:50 Pulse 68 04/25/18 08:50 Resp 20 04/25/18 08:50 BP 140/73 04/25/18 08:50 Pulse Ox 94 04/25/18 08:50 Physical Exam: General: Chronically ill appearing obese male in no acute distress. HEENT: NC/AT; PERRLA with EOMI; [place] conjunctiva, MMM. Neck: Supple and nontender Cardiac: irregular Lungs: CTA bilaterally Abdomen: Bowel normoactive X 4; Nontender to palpation Extremities: Warm. +1-2 bilat LE non pitting edema. Neuro: No focal weakness Skin: No rash Results & Data Laboratory Results 04/25/18 04/25/18 04/25/18 Range/Units 05:03 02:24 02:24 WBC (4.8-10.8) K/uL RBC (4.7-6.1) M/uL Hgb (14.0-18.0) g/dL Hct (42-52) % MCV (80-100) fL MCH (25-34) pg MCHC (32-36) g/dL RDW Std Deviation (36.4-46.3) fL RDW Coeff of Cameron (11.5-14.5) % Plt Count (130-400) K/uL MPV (7.4-10.4) fL Immature Gran % (Auto) % Neut % (Auto) % Lymph % (Auto) % [place] % (Auto) % Eos % (Auto) % Baso % (Auto) % Immature Gran # (Auto) (0.00-0.02) K/uL Neut # (Auto) (1.4-6.5) K/uL Lymph # (Auto) (1.2-3.4) K/uL [place] # (Auto) (0.11-0.59) K/uL Eos # (Auto) (0-0.5) K/uL Baso # (Auto) (0-0.2) K/uL PT (9.0-12.0) Seconds INR (0.9-1.1) APTT (21.0-31.0) Seconds PTT Ratio Sodium (136-145) mmol/L Potassium (3.5-5.1) mmol/L Chloride (98-107) mmol/L Carbon Dioxide (21-32) mmol/L Anion Gap (3-11) BUN (7-18) mg/dl Creatinine (0.6-1.4) mg/dl Est Cr Clr Drug Dosing ml/min Est GFR ( Amer) Est GFR (Non-Af Amer) BUN/Creatinine Ratio (10-20) Glucose (70-99) mg/dl Calcium (8.5-10.1) mg/dl Magnesium (1.8-2.4) mg/dl Total Bilirubin (0.2-1) mg/dl Direct Bilirubin (0-0.2) mg/dl AST (15-37) U/L ALT (12-78) U/L Alkaline Phosphatase (45-117) U/L Troponin I (0-0.045) ng/ml Total Protein (6.4-8.2) gm/dl Albumin (3.4-5.0) gm/dl Globulin (2.5-4.0) gm/dl Albumin/Globulin Ratio (0.9-2) Lipase (73-393) U/L Urine Color Yellow Urine Appearance Clear (Clear) Urine pH 8.0 H (4.5-7.5) Ur Specific Winfred 1.030 (1.000-1.030) Urine Protein Negative (Negative) Urine Glucose (UA) Negative (Negative) Urine Ketones Negative (Negative) Urine Blood Negative (Negative) Urine Nitrite Negative (Negative) Urine Bilirubin Negative (Negative) Urine Urobilinogen Negative (Negative) Ur Leukocyte Esterase Negative (Negative) Hepatitis A IgM Ab Pending Hep Bs Antigen Neg (Neg) Hep B Core IgM Ab Pending Hepatitis C Antibody Neg (Neg) 04/25/18 04/25/18 04/25/18 Range/Units 02:24 02:24 02:23 WBC 8.19 (4.8-10.8) K/uL RBC 5.16 (4.7-6.1) M/uL Hgb 16.1 (14.0-18.0) g/dL Hct 48.8 (42-52) % MCV 94.6 (80-100) fL MCH 31.2 (25-34) pg MCHC 33.0 (32-36) g/dL RDW Std Deviation 45.9 (36.4-46.3) fL RDW Coeff of Cameron 13.3 (11.5-14.5) % Plt Count 158 (130-400) K/uL MPV 9.8 (7.4-10.4) fL Immature Gran % (Auto) 0.2 % Neut % (Auto) 79.4 % Lymph % (Auto) 8.2 % Gilchrist % (Auto) 11.7 % Eos % (Auto) 0.4 % Baso % (Auto) 0.1 % Immature Gran # (Auto) 0.02 (0.00-0.02) K/uL Neut # (Auto) 6.50 (1.4-6.5) K/uL Lymph # (Auto) 0.67 L (1.2-3.4) K/uL [place]christ # (Auto) 0.96 H (0.11-0.59) K/uL Eos # (Auto) 0.03 (0-0.5) K/uL Baso # (Auto) 0.01 (0-0.2) K/uL PT 26.2 H (9.0-12.0) Seconds INR 2.7 H (0.9-1.1) APTT 36.7 H (21.0-31.0) Seconds PTT Ratio 1.4 Sodium 135 L (136-145) mmol/L Potassium 4.2 (3.5-5.1) mmol/L Chloride 99 (98-107) mmol/L Carbon Dioxide 31 (21-32) mmol/L Anion Gap 5.0 (3-11) BUN 18 (7-18) mg/dl Creatinine 1.18 (0.6-1.4) mg/dl Est Cr Clr Drug Dosing 64.9 ml/min Est GFR ( Amer) 69.5 Est GFR (Non-Af Amer) 60.0 BUN/Creatinine Ratio 14.9 (10-20) Glucose 121 H (70-99) mg/dl Calcium 8.2 L (8.5-10.1) mg/dl Magnesium 2.2 (1.8-2.4) mg/dl Total Bilirubin 2.8 H (0.2-1) mg/dl Direct Bilirubin 2.2 H (0-0.2) mg/dl AST 196 H (15-37) U/L ALT 230 H (12-78) U/L Alkaline Phosphatase 149 H (45-117) U/L Troponin I < 0.015 (0-0.045) ng/ml Total Protein 7.4 (6.4-8.2) gm/dl Albumin 3.6 (3.4-5.0) gm/dl Globulin 3.8 (2.5-4.0) gm/dl Albumin/Globulin Ratio 0.9 (0.9-2) Lipase 100 (73-393) U/L Urine Color Urine Appearance (Clear) Urine pH (4.5-7.5) Ur Specific Winfred (1.000-1.030) Urine Protein (Negative) Urine Glucose (UA) (Negative) Urine Ketones (Negative) Urine Blood (Negative) Urine Nitrite (Negative) Urine Bilirubin (Negative) Urine Urobilinogen (Negative) Ur Leukocyte Esterase (Negative) Hepatitis A IgM Ab Hep Bs Antigen (Neg) Hep B Core IgM Ab Hepatitis C Antibody (Neg)
[2018-04-25] MEDS ORDERED: WARFARIN SOD 5 MG TAB PO ONE (17:00)
[2018-04-25] MEDS ORDERED: FUROSEMIDE 40 MG TAB PO PRN (17:10)
--- NOTE | 2018-04-25 17:59 | Surgery Consultation ---
Date of Consultation April 25, 2018 Assessment & Plan (1) Abdominal pain, acute, epigastric: I do not think the patient has acute cholecystitis. He has a very contracted gallbladder full of stones and likely has chronic changes. He may have passed sludge or small gallstones through the common bile duct into the small bowel. We are going to check his laboratories in the morning and it may be that he requires an ERCP depending on the of her functions. He does not have evidence of pancreatitis. We may consider at some point performing laparoscopic cholecystectomy but I do not think it is urgent. We may consider it at the time of ERCP. I will continue to follow the patient and discuss a plan tomorrow with the medical and GI teams. History of Present Illness Attending Physician: Navin Roque MD History of Present Illness 73-year-old man admitted through the emergency room this morning with abdominal pain mostly epigastric. He was found with elevated total bilirubin and other LFTs. His ultrasound showed gallstones and a contracted gallbladder of approximately 1.8 cm diameter. His CAT scan showed possible periportal edema. Patient is on Coumadin for history of atrial fibrillation. Also a history of congestive heart failure and COPD. He underwent MRCP this afternoon which did not show any significant common bile duct defects. He is currently having no pain. Allergies Allergy/AdvReac Type Severity Reaction Status Date / Time No Known Allergies Allergy Verified 04/25/18 02:37 Home Medications Home Medications Medication Instructions Recorded Confirmed Type budesonide-formoterol [Symbicort] 2 puff INHALATION BID 04/25/18 04/25/18 History furosemide [Lasix] 40 mg PO DAILY 04/25/18 04/25/18 History lisinopril 2.5 mg PO DAILY 04/25/18 04/25/18 History umeclidinium [Incruse Ellipta] 1 inh INHALATION DAILY 04/25/18 04/25/18 History warfarin [Coumadin] 2.5 mg PO 4XWK 04/25/18 04/25/18 History warfarin [Coumadin] 5 mg PO 3XWK 04/25/18 04/25/18 History Patient History Medical History CHF (congestive heart failure) (Resolved) COPD (chronic obstructive pulmonary disease) (Chronic) Afib (Chronic) Surgical History Hx of cataract surgery Social History Preferred Language: Swedish Communication Ability: Effective Hood Fitter Required: No Beliefs That Will Affect Care: None Current Living Situation: Spouse Other Information That Helps Us Care for You: No Feels Safe at Home: Yes Safety Concerns: Feels Safe At This Time Smoking Status: Former smoker Hx Alcohol Use: Yes Hx Substance Use: No Review of Systems Please see HPI for positive review of systems. 10 other systems are negative. Physical Exam Vital Signs (Past 24 Hours): Last Vital Signs Temp 36.8 C 04/25/18 16:00 Pulse 88 04/25/18 16:00 Resp 18 04/25/18 16:00 BP 132/72 04/25/18 16:00 Pulse Ox 94 04/25/18 16:00 Currently he is resting in bed with oxygen in place and he is alert and responsive. He is in no distress. Sclera are anicteric. Neck is supple he is in no respiratory distress his heart shows no evidence of tachycardia. His abdomen is moderately distended but soft and nontender. He has normal bowel sounds remedies are warm. Results & Data Diagnostic Findings I did review his ultrasound and CAT scan.
--- NOTE | 2018-04-25 22:46 | Consultation Report ---
DATE OF CONSULTATION: 04/25/2018 ATTENDING PHYSICIAN: Dr. Navin Roque CONSULTING PHYSICIAN: Vladislav Hale DO REASON FOR CONSULTATION: Possible cholangitis. HISTORY OF PRESENT ILLNESS: Robert Luna is a 73-year-old male presented to the Department of Emergency Medicine this morning with complaints of epigastric and right upper quadrant abdominal pain, which initially was reported as 8/10 in intensity, nonradiating without alleviating or exacerbating factors. He underwent workup in the ER including a CBC, which was unremarkable. Liver panel revealed a total bilirubin of 2.8 with a direct bilirubin of 2.2, AST of 196, ALT of 230, and an alkaline phosphatase of 149. His lipase level was 100. He initially underwent a CT scan of the abdomen and pelvis, which showed gallstones present within the gallbladder lumen. He subsequently underwent a gallbladder ultrasound, which showed again gallstones and a common bile duct measuring 7 mm and finally he underwent an MRCP, which was nondiagnostic due to respiratory and somatic motion. The patient was kept n.p.o., was placed on ceftriaxone and Flagyl therapy IV and given IV fluids. I was asked to see the patient in consultation. At the time that I saw the patient, he did complain of some mild nausea, which he rated as 2/10 in intensity at this point. He states that he feels better since his arrival and states that he is not currently having any abdominal pain that he had when he presented. He further denies any vomiting, hematemesis, melena, hematochezia, jaundice, acholic stools, dark urine, or pruritus. He does state that he drinks approximately 3-4 beers 4 times per week, but denies any history of liver abnormalities. He does have a normal liver panel in his old record from as recent as 11/2017. He denies any further complaints. He does ask if he can eat. PAST MEDICAL HISTORY: Significant for heart failure, COPD, atrial fibrillation, hyperlipidemia, hypertension, chronic Coumadin therapy, history of sebaceous cyst. PAST SURGICAL HISTORY: Cataract surgery. ALLERGIES: None. MEDICATIONS: At present, ceftriaxone 1 g IV q. 24 hours, Metronidazole 500 mg IV q. 8 hours, folic acid 1 mg p.o. q.a.m., Dilaudid 0.5 mg IV q. 4 p.r.n. pain, lisinopril 2.5 mg p.o. daily, Zofran 4 mg IV q. 6 p.r.n., thiamine 100 mg p.o. q.a.m., Coumadin last given today 5 mg. SOCIAL HISTORY: Lives with his and drinks alcohol 3-4 times per week. Former smoker, [id number] history. No illicit drug use. FAMILY HISTORY: Negative for GI malignancy or inflammatory bowel diseases. REVIEW OF SYSTEMS: Negative x12 system review other than pertinent positive system listed in the HPI. PHYSICAL EXAMINATION: VITAL SIGNS: Temp 36.8, pulse 88, respirations 18, blood pressure 132/72, pulse ox 94% on 3 L via nasal cannula. GENERAL: He is awake, cooperative, obese, no acute distress. HEAD: Normocephalic, atraumatic. EYES: Pupils equal, round. Extraocular muscles are intact. ENT: External evaluation of ears and nose are normal. Oropharynx is clear. NECK: Soft and supple. CHEST: Clear to auscultation bilaterally. CARDIOVASCULAR SYSTEM: Irregularly irregular. ABDOMEN: Soft, nontender, nondistended. Positive bowel sounds. There is no hepatosplenomegaly or stigmata of chronic liver disease. EXTREMITIES: No clubbing, cyanosis, or edema. SKIN: Soft and pink. Good turgor. LABORATORY STUDIES: Reviewed in the HPI. IMPRESSION: This is a 73-year-old male who presented with a right upper quadrant abdominal pain, elevated LFTs, and findings of gallstones on imaging. PLAN: At the present time, I would recommend keeping the patient n.p.o. I would recommend continuing the patient on ceftriaxone and Flagyl therapy. We will repeat a liver panel in the morning. If his numbers have not improved or have risen, consideration will be given to undergo ERCP tomorrow. If that is the case, he will need his INR reversed, which can be performed via the hospitalist service. I did discuss this case in detail with Dr. Timi Gabriel who would opt to perform the potential ERCP. Once again, thanks for allowing me to participate in the care of this patient. If you have any further questions, please do not hesitate in contacting me.
[2018-04-26] MEDS: metroNIDAZOLE 500 MG/100 ML BAG IV SCH ×3 (03:22→18:20)
[2018-04-26 07:04] LABS: Basophils # (auto) 0.01 K/uL (0-0.2); Basophils % (auto) 0.2 %; Eosinophils # (auto) 0.02 K/uL (0-0.5); Eosinophils % (auto) 0.4 %; Hematocrit (blood only) 44.2 % (42-52); Immature Granulocytes # (auto) 0.02 K/uL (0.00-0.02); Immature Granulocytes % (auto) 0.4 %; Lymphocytes # (auto) 0.66 K/uL (1.2-3.4); Lymphocytes % (auto) 13.4 %; Mean Corpuscular Hgb Conc 31.7 g/dL (32-36); Mean Corpuscular Volume 97.1 fL (80-100); Mean Platelet Volume 10.2 fL (7.4-10.4); Monocytes # (auto) 0.54 K/uL (0.11-0.59); Monocytes % (auto) 10.9 %; Neutrophils # (auto) 3.69 K/uL (1.4-6.5); Neutrophils % (auto) 74.7 %; Platelet Count 139 K/uL (130-400); RDW Coefficient of Variation 13.8 % (11.5-14.5); Red Blood Count 4.55 M/uL (4.7-6.1); White Blood Count 4.94 K/uL (4.8-10.8)
[2018-04-26 07:17] LABS: INR 3.1 (0.9-1.1); Prothrombin Time 29.1 Seconds (9.0-12.0)
[2018-04-26 07:40] LABS: Albumin Level 2.9 gm/dl (3.4-5.0); BUN Creatinine Ratio 14.6 (10-20); Calcium 7.5 mg/dl (8.5-10.1); Creatinine Clr Calc Pharmacy 86.5 ml/min; Est GFR (African American) 97.4; Potassium 4.2 mmol/L (3.5-5.1)
[2018-04-26 07:47] LABS: Albumin Globulin Ratio 0.9 (0.9-2); Bilirubin,Total 1.4 mg/dl (0.2-1); Globulin 3.1 gm/dl (2.5-4.0)
[2018-04-26] MEDS: BUDESONIDE/FORMOTEROL FUMARATE 160/4.5 60 PUFFS/INHALER INH SCH ×2 (08:43→21:57)
[2018-04-26] MEDS: FOLIC ACID 1 MG TAB PO SCH (08:44)
[2018-04-26] MEDS: THIAMINE HCL 100 MG TAB PO SCH (08:44)
[2018-04-26] MEDS: LISINOPRIL 2.5 MG TAB PO SCH (08:44)
--- NOTE | 2018-04-26 09:31 | Progress Note ---
Date of Service April 26, 2018 Assessment & Plan (1) LFT elevation: Lfts improved, asx, chronic contracted gallbladder will try diet, if has recurrent problem then consider cholecystectomy- monitor for now Subjective slept all night- hungry says he feels good- no abd pain Lfts improved, lipase normal Physical Exam Vital Signs (Past 24 Hours): Last Vital Signs Temp 36.7 C 04/26/18 08:00 Pulse 74 04/26/18 08:00 Resp 20 04/26/18 08:00 BP 110/63 04/26/18 08:00 Pulse Ox 96 04/26/18 08:42 abd- baseline distention, nontender
[2018-04-26] MEDS: cefTRIAXone SODIUM 1,000 MG in DEXTROSE 5% 50 ML IV SCH (09:47)
--- NOTE | 2018-04-26 10:24 | Gastroenterology Progress Note ---
Date of Service April 26, 2018 Assessment & Plan (1) RUQ abdominal pain: (2) Gallstones with biliary obstruction: (3) Elevated liver enzymes: 1) Improved symptoms, therefore, no plans for ERCP 2) Discussed case with Dr. Valverde, no plans for cholecystectomy at present 3) Continue IV Abx as per the Hospitalist team, and would recommend 10 day course of therapy 4) Advance diet as tolerated. Subjective Mr. Luna presented to the ER yesterday morning with abdominal pain and bloating. Lab studies showed elevated LFT's, and imaging revealed gallstones. Mr. Luna has had an improvement in his symptoms overnight. He denies any nausea, vomiting, abdominal pain, fevers or chills. His liver panel has improved. He is asking for an advancement of his diet, and has no further complaints. Physical Exam Vital Signs (Past 24 Hours): Last Vital Signs Temp 36.7 C 04/26/18 08:00 Pulse 74 04/26/18 08:00 Resp 20 04/26/18 08:00 BP 110/63 04/26/18 08:00 Pulse Ox 96 04/26/18 08:42 Constitutional: no acute distress and not ill appearing Gastrointestinal (Abdomen): normal bowel sounds, soft, nontender, no hepatosplenomegaly
--- NOTE | 2018-04-26 16:23 | Hospitalist Progress Note ---
Date of Service April 26, 2018 Assessment & Plan (1) Abdominal pain, acute, epigastric: - Presented with acute epigastric pain, now resolved. - CT A/P showed periportal edema, concern for cholangitis. - RUQ US showed multiple gallstones, mild gallbladder distention and 7 mm CBD stone. - LFTs now trending down, will continue to monitor daily. - MRCP was limited due to resp/somatic motion. - On Ceftriaxone/Flagyl for empiric coverage. - Advanced to low fat diet, tolerating well. - Consulted GI, no indication for ERCP as LFTs improved. - Surgery consulted, no indication for cholecystectomy. (2) LFT elevation: - LFTs now trending down, will monitor. (3) COPD (chronic obstructive pulmonary disease): - Continue home Symbicort as prescribed. - Incruse is non-formulary, will hold. (4) Afib: - Chronic A. fib, rate controlled. - On Coumadin -- INR was supratherapeutic at 3.1. - Hold Coumadin dose this evening. (5) Chronic diastolic heart failure: - Most recent TTE July 2017 showed EF 60-65%, severe biatrial dilation and mild mitral regurg. - Monitor net I/Os and daily weights. - Holding home Lasix 40 mg PO daily -- will likely resume on discharge. - Continue Lisinopril as prescribed. (6) Hypoxia: - Was likely related to mild pulm edema, now weaned to room air. - D/c'ed IV fluids. - Holding home Lasix. (7) Pulmonary hypertension: - Per outpatient cardiology notes. (8) Hypertension: - Continue Lisinopril as prescribed. (9) Hyperlipidemia: - Not currently on statin agent. (10) CKD (chronic kidney disease) stage 2, GFR 60-89 ml/min: - Renally dose all medications. (11) ETOH abuse: - Thiamine 100 mg qAM and Folic acid 1 mg qAM. - Monitor for signs of withdrawal. (12) DVT prophylaxis: - Will continue to hold Coumadin due to supratherapeutic INR. Dispo: Discharge likely tomorrow if LFTs improving. Supervising Physician Co-Signing Physician Notes Attending attestation - Chart reviewed, care plan d/w BROOKE Suarez. I agree w/ the house components of her documentation. Pt with continued clinical improvement in GI symptoms and LFTs. Gen surg w/ no plans to perform cholecystectomy. GI recommending ongoing observation. no ERCP at this time. Possibly passed a small gallstone prior to admission? still no signs of etoh withdrawal. cont to monitor. John Adams MD Subjective Pt. is doing well overall today. LFTs trending down. Per GI, no ERCP indicated. Denies abdominal pain, N/V. Last BM was prior to admission; is passing gas. Will monitor for another 24 hours. Does not have LE edema -- he does not want to restart Lasix PO. Review of Systems All systems reviewed & are unremarkable except as noted in HPI & below Constitutional: no fever and no chills Respiratory: no cough, no dyspnea and no dyspnea on exertion Cardiovascular: no chest pain, no palpitations and no edema Gastrointestinal: no abdominal pain, no nausea, no vomiting, no constipation and no diarrhea/loose stools Genitourinary (Male): no difficulty urinating Allergy / Immunological: no rash Physical Exam Vital Signs (Past 24 Hours): Last Vital Signs Temp 36.7 C 04/26/18 08:00 Pulse 74 04/26/18 08:00 Resp 20 04/26/18 08:00 BP 110/63 04/26/18 08:00 Pulse Ox 96 04/26/18 08:42 Physical Exam: General: Chronically ill appearing obese male. HEENT: NC/AT; PERRLA with EOMI; [place] conjunctiva, MMM. Neck: Supple and nontender Cardiac: irregular Lungs: CTA bilaterally Abdomen: Bowel normoactive X 4; Nontender to palpation Extremities: Warm. No LE edema noted. Neuro: No focal weakness Skin: No rash Results & Data Laboratory Results 04/26/18 04/26/18 04/26/18 Range/Units 06:46 06:46 06:46 WBC 4.94 (4.8-10.8) K/uL RBC 4.55 L (4.7-6.1) M/uL Hgb 14.0 (14.0-18.0) g/dL Hct 44.2 (42-52) % MCV 97.1 (80-100) fL MCH 30.8 (25-34) pg MCHC 31.7 L (32-36) g/dL RDW Std Deviation 49.0 H (36.4-46.3) fL RDW Coeff of Cameron 13.8 (11.5-14.5) % Plt Count 139 (130-400) K/uL MPV 10.2 (7.4-10.4) fL Immature Gran % (Auto) 0.4 % Neut % (Auto) 74.7 % Lymph % (Auto) 13.4 % [place] % (Auto) 10.9 % Eos % (Auto) 0.4 % Baso % (Auto) 0.2 % Immature Gran # (Auto) 0.02 (0.00-0.02) K/uL Neut # (Auto) 3.69 (1.4-6.5) K/uL Lymph # (Auto) 0.66 L (1.2-3.4) K/uL [place] # (Auto) 0.54 (0.11-0.59) K/uL Eos # (Auto) 0.02 (0-0.5) K/uL Baso # (Auto) 0.01 (0-0.2) K/uL PT 29.1 H (9.0-12.0) Seconds INR 3.1 H (0.9-1.1) Sodium 138 (136-145) mmol/L Potassium 4.2 (3.5-5.1) mmol/L Chloride 106 (98-107) mmol/L Carbon Dioxide 28 (21-32) mmol/L Anion Gap 4.0 (3-11) BUN 13 (7-18) mg/dl Creatinine 0.88 D (0.6-1.4) mg/dl Est Cr Clr Drug Dosing 86.5 ml/min Est GFR ( Amer) 97.4 Est GFR (Non-Af Amer) 84.0 BUN/Creatinine Ratio 14.6 (10-20) Glucose 106 H (70-99) mg/dl Calcium 7.5 L (8.5-10.1) mg/dl Magnesium 2.0 (1.8-2.4) mg/dl Total Bilirubin 1.4 H (0.2-1) mg/dl AST 98 H (15-37) U/L ALT 203 H (12-78) U/L Alkaline Phosphatase 150 H (45-117) U/L Total Protein 6.0 L (6.4-8.2) gm/dl Albumin 2.9 L (3.4-5.0) gm/dl Globulin 3.1 (2.5-4.0) gm/dl Albumin/Globulin Ratio 0.9 (0.9-2) Lipase 349 (73-393) U/L Hepatitis A IgM Ab (NON-REACTIVE) Hep B Core IgM Ab (NON-REACTIVE) 04/25/18 Range/Units 02:24 WBC (4.8-10.8) K/uL RBC (4.7-6.1) M/uL Hgb (14.0-18.0) g/dL Hct (42-52) % MCV (80-100) fL MCH (25-34) pg MCHC (32-36) g/dL RDW Std Deviation (36.4-46.3) fL RDW Coeff of Cameron (11.5-14.5) % Plt Count (130-400) K/uL MPV (7.4-10.4) fL Immature Gran % (Auto) % Neut % (Auto) % Lymph % (Auto) % [place] % (Auto) % Eos % (Auto) % Baso % (Auto) % Immature Gran # (Auto) (0.00-0.02) K/uL Neut # (Auto) (1.4-6.5) K/uL Lymph # (Auto) (1.2-3.4) K/uL [place] # (Auto) (0.11-0.59) K/uL Eos # (Auto) (0-0.5) K/uL Baso # (Auto) (0-0.2) K/uL PT (9.0-12.0) Seconds INR (0.9-1.1) Sodium (136-145) mmol/L Potassium (3.5-5.1) mmol/L Chloride (98-107) mmol/L Carbon Dioxide (21-32) mmol/L Anion Gap (3-11) BUN (7-18) mg/dl Creatinine (0.6-1.4) mg/dl Est Cr Clr Drug Dosing ml/min Est GFR ( Amer) Est GFR (Non-Af Amer) BUN/Creatinine Ratio (10-20) Glucose (70-99) mg/dl Calcium (8.5-10.1) mg/dl Magnesium (1.8-2.4) mg/dl Total Bilirubin (0.2-1) mg/dl AST (15-37) U/L ALT (12-78) U/L Alkaline Phosphatase (45-117) U/L Total Protein (6.4-8.2) gm/dl Albumin (3.4-5.0) gm/dl Globulin (2.5-4.0) gm/dl Albumin/Globulin Ratio (0.9-2) Lipase (73-393) U/L Hepatitis A IgM Ab NON-REACTIVE (NON-REACTIVE) Hep B Core IgM Ab NON-REACTIVE (NON-REACTIVE)
[2018-04-26] MEDS ORDERED: WARFARIN SOD 2.5 MG TAB PO ONE (16:30)
[2018-04-27] MEDS: metroNIDAZOLE 500 MG/100 ML BAG IV SCH (02:55)
--- NOTE | 2018-04-27 06:11 | Progress Note ---
Date of Service April 27, 2018 Assessment & Plan (1) Elevated liver enzymes: ok to d/c from surgical stdpt will f/u in office- info in discharge Subjective no abd complaints wants to go home Physical Exam Vital Signs (Past 24 Hours): Last Vital Signs Temp 36.8 C 04/26/18 23:27 Pulse 79 04/26/18 23:27 Resp 20 04/26/18 23:27 BP 123/74 04/26/18 23:27 Pulse Ox 96 04/26/18 23:27 no acute chgs
[2018-04-27] MEDS ORDERED: ACETAMINOPHEN 325 MG TAB PO PRN (06:24)
[2018-04-27 07:28] LABS: Hematocrit (blood only) 43.9 % (42-52); Hemoglobin 14.1 g/dL (14.0-18.0); Mean Corpuscular Hgb Conc 32.1 g/dL (32-36); Mean Corpuscular Volume 97.6 fL (80-100); Mean Platelet Volume 10.1 fL (7.4-10.4); Platelet Count 126 K/uL (130-400); RDW Coefficient of Variation 13.6 % (11.5-14.5); RDW Standard Deviation 48.7 fL (36.4-46.3); White Blood Count 6.66 K/uL (4.8-10.8)
[2018-04-27 07:43] LABS: INR 1.9 (0.9-1.1); Prothrombin Time 18.8 Seconds (9.0-12.0)
[2018-04-27 08:03] LABS: Albumin Level 3.2 gm/dl (3.4-5.0); Creatinine Clr Calc Pharmacy 84.2 ml/min; Est GFR (African American) 95.2; Est GFR (Non-African American) 82.2; Potassium 4.2 mmol/L (3.5-5.1)
[2018-04-27 08:06] LABS: Globulin 3.2 gm/dl (2.5-4.0); Total Protein 6.4 gm/dl (6.4-8.2)
[2018-04-27] MEDS: LISINOPRIL 2.5 MG TAB PO SCH (08:38)
[2018-04-27] MEDS: THIAMINE HCL 100 MG TAB PO SCH (08:38)
[2018-04-27] MEDS: FOLIC ACID 1 MG TAB PO SCH (08:38)
[2018-04-27] MEDS: BUDESONIDE/FORMOTEROL FUMARATE 160/4.5 60 PUFFS/INHALER INH SCH (08:38)
[2018-04-27] MEDS ORDERED: FUROSEMIDE 40 MG TAB PO SCH (09:00)
[2018-04-27] MEDS: cefTRIAXone SODIUM 1,000 MG in DEXTROSE 5% 50 ML IV SCH (10:00)
--- NOTE | 2018-04-27 10:36 | Gastroenterology Progress Note ---
Date of Service April 27, 2018 Assessment & Plan (1) Elevated liver enzymes: Mr. Luna's elevated LFTs, and now resolved abdominal pain/distention may have been caused by passage of microlithiasis. Though MRCP is non conclusive, it is unlikely that he currently has bile duct obstruction because LFTs are returning to normal. Recommend OP EUS, +/-ERCP if any evidence of choledocholithiasis. Pt agrees to procedure/s. Our office will contact him to arrange OP EUS/ERCP. No GI contraindication to discharge. Supervising Physician Co-Signing Physician Notes I have performed a history and physical examination of this patient and reviewed the electronic medical record. Specifically, on history there is no further abdominal pain. I have discussed the case with ELBA Altamirano. The above note reflects my findings, conclusions, and recommendations. Tej Gabriel MD Subjective Mr. Luna is a 73 yr old male admitted with abdominal pain, elevated LFTs, Imaging w/o choledocholithiasis. He is doing well with resolution of pain, tolerating a low fat diet. LFTs decreasing: T Bili2.8->1.4->1 AST 196->98-44 ALT 230->203->140. Constitutional: no fever, no chills and no sweats Eyes: no eye pain no icterus Ear, Nose, Mouth, Throat: no ear pain, no dizziness and no hoarseness Respiratory: no cough, no chest congestion and no dyspnea on exertion Cardiovascular: + edema (chronic, bilat lower leg, no recent worsening); no chest pain and no palpitations Gastrointestinal: + abdominal pain (much improved) and + bloating (much improved) chronic increased flatus no jaundice Neurologic: no unsteadiness, no generalized weakness and no tremor(s) Psychiatric: + change in appetite (currently good appetite); no depression Physical Exam Vital Signs (Past 24 Hours): Last Vital Signs Temp 36.4 C L 04/27/18 08:08 Pulse 80 04/27/18 08:08 Resp 17 04/27/18 08:08 BP 151/91 H 04/27/18 08:08 Pulse Ox 96 04/26/18 23:27 Constitutional: WD/WN, vitals as above + overweight Eyes: PERRL, conjunctivae normal, anicteric sclerae ENMT: external ear and nose normal, oropharynx normal Neck: trachea midline, no thyromegaly Respiratory: normal respiratory effort, lungs clear to auscultation Cardiovascular: Vessels: no JVD Gastrointestinal (Abdomen): normal bowel sounds, soft, nontender, no hepatosplenomegaly Inspection/Auscultation: + abdomen distended (mild) Musculoskeletal: no cyanosis or clubbing, extremities motor strength 5/5 Skin: no rashes, warm and dry Neurologic: patellar DTR's 2+ bilat, sensation intact Psychiatric: A+Ox3, euthymic affect Lymphatic: no cervical or axillary lymphadenopathy Results & Data Laboratory Results WBC 6.6, Hb 14, Hct 43, Platelets 126, INR 1.9, Na 136, K 4.2, BN 18, Cr 0.9, Glucose [address] 04/25/18 1. No acute process of the abdomen or pelvis. 2. 4 cm aneurysm abdominal aorta. 3. Age-related changes throughout with no acute process identified. 4. Gallstones. US 04/25/18: Gallstones. Common bile duct 7 mm. Otherwise negative study. MRCP 04/27/18: 1. Nondiagnostic study of the pancreatic and biliary ductal systems due to respiratory and somatic motion. 2. No significant distention of the biliary or pancreatic ductal systems. 3. Gallstones. 4. Study is otherwise unremarkable again within limitations of patient motio
[2018-04-27] MEDS ORDERED: metroNIDAZOLE 500 MG TAB PO SCH (11:00)
--- NOTE | 2018-04-27 11:36 | Discharge Summary ---
Date of Service April 27, 2018 Admission HPI Per Admitting Provider 72 y/o male with a history of HTN, HLD, chronic a-fib, chronic diastolic CHF, COPD, BPH, gout, AAA, excessive alcohol intake. Presenting with mid to upper abdominal pain and distention. Denies nausea, vomiting, diarrhea, constipation. Describes a feeling of trapped gas in his abdomen. A CT of the abdomen demonstrated periportal edema which may represent cholangitis. An US demonstrated multiple gallstones, mild gallbladder distention, 7mm CBD without evidence of cholecystitis. Initial labs are notable for transaminitis and an elevated bilirubin which are new. Admission Exam Per Admitting Provider General: AAO x 3, no distress ENT: No erythema or exudates, no thrush - broken capillaries are present about the tip of the nose Eyes: RYAN, EOMI Head and neck: Normocephalic, atraumatic, No JVD, neck is supple. Chest/heart: Nontender, S1,2, irr, no murmurs, no gallops Lungs: CTAB, no wheezing or crackles Abdomen: Distended abdomen which is nontender to palpation Neuro: AAO x 3, speech is clear, no unilateral weakness or loss of sensation, coordination intact Musculoskeletal: No joint inflammation, muscle tenderness, FROM Skin: No acute rashes or ulcers Extremities: No clubbing, cyanosis, edema Principal Diagnosis Epigastric Abd Pain, Elevated LFTs Discharge Exam General: Chronically ill appearing obese male. HEENT: NC/AT; PERRLA with EOMI; [place] conjunctiva, MMM. Neck: Supple and nontender Cardiac: irregular Lungs: CTA bilaterally Abdomen: Abdomen distended; Bowel normoactive X 4; Nontender to palpation Extremities: Warm. +2 bilat LE edema noted. Neuro: No focal weakness Skin: No rash Discharge Data Allergies Allergy/AdvReac Type Severity Reaction Status Date / Time No Known Allergies Allergy Verified 04/25/18 02:37 Consultations 04/25/18 05:31 ED Decision to Admit Stat 04/25/18 08:43 Consult Gastroenterology Routine 04/25/18 17:12 Consult General Surgery Routine Ordered Studies 04/25/18 02:30 CT abd pelvis IV con only Urgent 04/25/18 CXR 04/25/18 03:53 US gallbladder Urgent 04/25/18 08:43 MR MRCP Stat Hospital Course (1) Abdominal pain, acute, epigastric: Presented with acute epigastric pain, now resolved. CT A/P showed periportal edema, concern for cholangitis. RUQ US showed multiple gallstones, mild gallbladder distention and 7 mm CBD stone. MRCP was limited due to motion. Ceftriaxone/Flagyl started for empiric coverage. LFTs were elevated at beginning of admission, trended down over the first 24 hours. GI consulted, recommended ERCP if no improvement in LFTs. Surgery also consulted, did not recommend surgical intervention. LFTs continued to trend down, significantly improved on discharge. Was tolerating low fat diet. Will need to f/u with surgery in 3-4 weeks and with GI for outpt EUS with possible ERCP. (2) LFT elevation: Improved throughout admission, see above. (3) COPD (chronic obstructive pulmonary disease): Continues home Symbicort as prescribed. Incruse is non-formulary, was held. (4) Afib: Chronic A. fib, rate controlled. Coumadin was held during this admission for procedure. Resumed on 04/26, received 2.5 mg daily. INR was subtherapeutic on discharge, 1.9. Will take 2.5 mg daily at home due to medication interaction per pharm recs. Script provided for f/u INR this week with Dr. Aquino. (5) Chronic diastolic heart failure: Most recent TTE July 2017 showed EF 60-65%, severe biatrial dilation and mild mitral regurg. Home lasix was initially held due to dehdyration. It was resumed on day of discharge as pt. developed +2 LE edema. (6) Hypoxia: Was likely related to mild pulm edema, now weaned to room air. Home lasix resumed on day of discharge, was stable on room air. (7) Pulmonary hypertension: Per outpatient cardiology notes. (8) Hypertension: Continued Lisinopril as prescribed. (9) Hyperlipidemia: Not currently on statin agent. (10) CKD (chronic kidney disease) stage 2, GFR 60-89 ml/min: Renally dose all medications. (11) ETOH abuse: Thiamine 100 mg qAM and Folic acid 1 mg qAM ordered. Educated to avoid ETOH use while taking Flagyl at home. (12) DVT prophylaxis: Coumadin was held and resumed on 04/26/18. Stable for discharge to home on 04/27/18. Will need to f/u with PCP, GI and surgery. Total Time Total Time Spent Total Time Spent (In Minutes): >30 minutes Total Time Includes: Examination of the Patient, Discharge Planning, Medication Reconciliation, Communication With Other Providers and Other Discharge Plan Discharge Items Patient Disposition: Home - Self-Care Reason For Visit: ABD PAIN, LFTS ABNORMAL Discharge Diagnosis: Elevated LFTs Condition: Good Discharge Goals: Diagnostic testing, Improve disease control, Improve function, Increase independence and Improve nutritional status Activity: As commented below Exercise/Sports: Gradually increase as tolerated Non-emergency contact: Primary Care Provider and Bite Block Maker Call non-emergency contact if: you have any medication questions, your symptoms worsen, your pain is not controlled, your pain is worsening, your pain is unusual for you, your pain is concerning for you and you have a fever Follow-up/Referrals: Tej Aquino MD [District Branch Manager] - 06/16/18 11:15 am (Please, follow up at [facility] Cardiology Office with Dr. Aquino on FridayJune 16 at 11:15 am. *If you need to change this appointment, call the office at [phone].) Jason Valverde MD, FACS [Surgeon] - 05/29/18 8:30 am (Please, follow up with Dr. Jason Valverde (surgeon) on FridayMay 29 at 8:30 am. *This office is located at [address] [place] [address] in [place]. If you need to change this appointment, call the office at [phone].) Tej Salazar MD [Primary Care Provider] - 04/29/18 11:30 am (Please, follow up at Dr. Salazar's office with Kelle ARREOLA on FridayApril 29 at 11:30 am. *If you need to change this appointment, call their office at [phone].) Renay Fernandez CRNP [Nurse Practitioner] - 05/11/18 1:00 pm (Please, follow up at [facility] Gastroenterology Office with Renay ARREOLA, on FridayApril 13 at 1:00 pm. *This office is located at [address] [facility] in [facility]). If you need to change this appointment, call the office at [phone].) Diet: Low Fat Other Ambulatory Orders: Prothrombin Time INR (Timed) Timeframe: 3 Days Location: Determined by Patient Ordered By: Mena Darling Provider Instructions: 1. Abdominal Pain and Elevated LFTs * You were admitted for abd pain and elevated LFTs -- lab tests are improving. * Please continue Ciprofloxacin 500 mg twice daily and Flagyl 500 mg every 8 hours for empiric coverage of an abdominal infection. * Do not drink alcohol while taking the antibiotics; you can have a bad reaction to the antibiotics (nausea, vomiting, etc) if alcohol is consumed. * Please continue a low fat diet as tolerated. * An appointment will be scheduled with gastroenterology in 2-3 weeks for follow up and evaluation. You will likely need an outpatient EUS with ERCP. * Please schedule an appointment with Dr. Valverde from general surgery in 3-4 weeks; his office number is [phone]. 2. Chronic A. Fib * Please take Coumadin 2.5 mg daily -- your dose has been lowered due to medication interactions. * A script was provided for a follow up PT/INR at Dr. Aquino's office -- lab work will need to be monitored on Friday or this week. 3. Congestive Heart Failure * Please resume Lasix 40 mg daily for increased lower extremity swelling. * Monitor daily weights; you will need to contact your family doctor if you gain more than 2-3 pounds over a 2-3 day period. 4. Prescriptions for new medications (Cipro, Flagyl, Thiamine and Folic acid) were sent to your pharmacy. 5. An appointment will be scheduled with your family doctor within the next 7-10 days. Prescriptions: New thiamine HCl (vitamin B1) [Vitamin B-1] 100 mg Tablet 100 mg PO QAM 30 Days Qty: 30 RF: 0 metronidazole 500 mg Tablet 500 mg PO Q8H Qty: 23 RF: 0 ciprofloxacin HCl 500 mg Tablet 500 mg PO BID 7 Days Qty: 15 RF: 0 folic acid 1 mg Tablet 1 mg PO QAM 30 Days Qty: 30 RF: 0 warfarin [Coumadin] 2.5 mg tablet 2.5 mg PO DAILY Qty: 1 RF: 0 Continued furosemide [Lasix] 40 mg Tablet 40 mg PO DAILY RF: 0 lisinopril 2.5 mg Tablet 2.5 mg PO DAILY RF: 0 Symbicort 160-4.5 mcg/actuation Hfa Aerosol Inhaler 2 puff INHALATION BID RF: 0 Incruse Ellipta 62.5 mcg/actuation Blister With Device 1 inh INHALATION DAILY RF: 0 Discontinued warfarin [Coumadin] 2.5 mg Tablet 2.5 mg PO 4XWK RF: 0 warfarin [Coumadin] 5 mg Tablet 5 mg PO 3XWK RF: 0 Stand-Alone Forms: Call Back Authorization, [facility] Discharge Orders: Discharge Order (Routine); Ordered 04/27/18 Ordered By: Mena Suarez Admission Data Admit Date/Time: 04/25/18 07:33 Attending Provider: John Adams Admit Provider: Navin Roque Primary Care Provider: Tej Salazar Other Providers: Navin Roque ; Vladislav Hale ; Jason Valverde Service: Medical Other Interventions: Discharge Summary Assessment (RN) Last Done: 04/27/18 11:19 Pending Studies at Discharge: No DC Date/Time DO NOT enter until pt leaves facility: 04/27/18 12:05 Supervising Physician Co-Signing Physician Notes Attending Discharge Note & Attestation - Pt seen/examined, chart reviewed, discharge care plan d/w BROOKE Suarez. I agree w/ the house components of her documentation. 73yo male with history of a. fib, HTN, COPD, chronic diastolic CHF - presented with abd pain & abnormal LFTs suggestive of biliary obstruction. Received IV antibiotic therapy to cover for possibility of cholangitis and/or cholecystitis. Seen by gen surg & GI - both advised conservative measures and observation. LFTs improved during the stay and abd symptoms resolved. He was able to tolerate a diet prior to discharge. It is possible he could have passed a small gallstone prior to admission as the etiology of his presentation. GI is recommending an EUS with possible ERCP in 2-3 weeks post-discharge; [facility] to perform. He will d/c home on course of cipro/flagyl; heavily counseled NOT to drink alcohol and to follow low-fat diet. Discharge exam: gen - NAD, obese eyes - no icterus mouth - MMM heart - irregular, s1, s2 lungs - faint end-exp wheeze b/l; no rales abd - soft, NT, ND, BS+, no HSM ext - <1+ edema, pulses 2+ b/l John Adams MD
[2018-04-27] MEDS ORDERED: WARFARIN SOD 5 MG TAB PO SCH (16:00)
[2018-04-27] MEDS ORDERED: WARFARIN SOD 2.5 MG TAB PO SCH (16:00)
[2018-04-28] MEDS ORDERED: CIPROFLOXACIN 500 MG TAB PO SCH (09:00)
--- NOTE | 2018-04-29 14:18 | Coding Query ---
CODING QUERY To promote full compliance with coding requirements relating to patient care, provider participation is requested in all cases of roustabout pusher uncertainty. Please assist us with the question(s) below: Coding Question(s): Patient admitted with epigastric abdominal pain. CT = mild gall bladder distension w/o obstruction. Elevated LFT's. Abdominal pain resolved before discharge. Please document, if known or suspected, the etiology of the abdominal pain. Thank you ! Aniceto Lopez [facility] Physician's Response(s): suspected passage of a gallstone Principal Diagnosis: "that condition established after study, to be chiefly responsible for occasioning the admission of the patient to the hospital for care." Co-Existing Principal Diagnosis: "when two or more diagnoses equally meet the criteria for principal diagnosis as determined by the circumstances of admission, diagnostic work up, and/or therapy provided, and the Alphabetic Index, Tabular List, or another coding guideline does not provide sequencing direction, any one of the diagnoses may be sequenced first." "When the physician has documented what appears to be a current diagnosis in the body of the record, but has not included the diagnosis in the final diagnostic statement, the physician should be asked whether the diagnosis should be added." (Source Coding [facility] 2 QTR90. p3-4) KARLA
== END 2018-04-27 12:05 | disposition home or self-care (01) | DRG 445 ==
LOC: ED 02:05 → SUATTDRO 07:33 → 4W 07:33

== ENCOUNTER 2023-01-12 16:10 | Inpatient (IN) ==
--- NOTE | 2023-01-12 16:21 | ED Triage Note ---
Date of Service January 12, 2023 History of Present Illness This patient was briefly evaluated while in triage. An abbreviated physical exam was performed. This patient is a 77-year-old Male who presents to the ED for evaluation of trouble breathing. Notes was given a medication as he tested + for COVID 19. Was told if 02 levels below 90 percent he is to come to ED. Notes tested positive for COVID19 this past Friday or Friday. Cough with phlegm. Hx of COPD. Physical Exam GENERAL: 77 year old male. In no acute distress. SKIN: No lesions or rashes. HEART: Regular rate and rhythm. LUNGS: Clear to auscultation. NEURO: Alert and oriented. No deficits. MUSCULOSKELETAL: No deformities to inspection of the extremities. PSYCH: Patient is pleasant and answers all questions appropriately. Initial orders for labs and / or imaging were placed and patient was placed in the waiting area until a bed is available. Please see further documentation for the full ED course.
[2023-01-12 17:13] LABS: Basophils # (auto) 0.01 K/uL (0.00-0.20); Basophils % (auto) 0.2 %; Eosinophils # (auto) 0.01 K/uL (0.00-0.50); Eosinophils % (auto) 0.2 %; Hematocrit (blood only) 44.8 % (42.0-52.0); Hemoglobin 14.5 g/dl (14.0-18.0); Immature Granulocytes # (auto) 0.01 K/uL (0.01-0.20); Immature Granulocytes % (auto) 0.2 %; Lymphocytes # (auto) 1.18 K/uL (1.20-3.40); Lymphocytes % (auto) 19.4 %; Mean Corpuscular Hemoglobin 30.5 pg (25.0-34.0); Mean Corpuscular Hgb Conc 32.4 g/dL (32.0-36.0); Mean Corpuscular Volume 94.3 fL (80.0-100.0); Mean Platelet Volume 10.2 fL (9.4-12.4); Monocytes # (auto) 1.07 K/uL (0.11-0.59); Monocytes % (auto) 17.6 %; Neutrophils # (auto) 3.81 K/uL (1.40-6.50); Neutrophils % (auto) 62.4 %; Platelet Count 143 K/uL (130-400); RDW Coefficient of Variation 13.2 % (11.5-14.5); RDW Standard Deviation 46.3 fL (36.4-46.3); Red Blood Count 4.75 M/uL (4.70-6.10); White Blood Count 6.09 K/ul (4.8-10.8)
[2023-01-12] MEDS ORDERED: SODIUM CHLORIDE 0.9% 500 ML IV ONE (17:15)
[2023-01-12] MEDS ORDERED: ALBUT/IPRATROP 3MG/0.5MG NEB 3 ML VIAL NEB STA (17:15)
[2023-01-12] MEDS ORDERED: dexAMETHasone**PF** 10 MG/ML VIAL IV ONE (17:15)
[2023-01-12 17:21] LABS: Alanine Aminotransferase 12 U/L (7-52); Albumin Globulin Ratio 1.2 (0.9-2); Albumin Level 3.7 gm/dl (3.4-5.0); Alkaline Phosphatase 68 U/L (34-104); Anion Gap 5 (3-11); Aspartate Aminotransferase 12 U/L (13-39); BUN Creatinine Ratio 20.2 (10-20); Bilirubin,Total 1.2 mg/dl (0.2-1.0); Blood Urea Nitrogen 21 mg/dl (6-23); Calcium 8.5 mg/dl (8.6-10.3); Carbon Dioxide 30 mmol/L (21-32); Chloride 99 mmol/L (98-107); Est GFR (African American) 78.8 ml/min; Glucose 96 mg/dl (70-99(Fasting)); Sodium 134 mmol/L (136-145); Total Protein 6.7 gm/dl (6.0-8.3)
[2023-01-12 17:28] LABS: Troponin I High Sensitivity 6.6 pg/ml (0-20)
[2023-01-12 17:32] LABS: Partial Thromboplastin Ratio 1.4; Partial Thromboplastin Time 39.2 Seconds (21.0-31.0); Prothrombin Time 21.4 Seconds (9.0-12.0)
[2023-01-12 17:44] LABS: Influenza A virus by PCR Negative (Neg); Influenza B virus by PCR Negative (Neg); RSV by PCR Negative (Neg)
--- NOTE | 2023-01-12 17:46 | XRay Report ---
XR chest 1V not portable CLINICAL HISTORY: Cough. COMPARISON STUDY: Chest CT May 10, 2014. Chest radiograph January 30, 2021. FINDINGS: Old distal right clavicular fracture is incidentally noted. Lung volumes are normal. There is no consolidation to suggest pneumonia. Linear bibasilar densities favor atelectasis or scarring. T here is no pneumothorax or pleural effusion. Cardiomegaly is unchanged. Mediastinal contours are norm al. There is no evidence for pulmonary edema. IMPRESSION: No acute cardiopulmonary findings. Cardiomegaly. ACT 112: Negative or not required by law. Electronically signed by: Ludin Whitfield M.D. 01/12/2023 5:45 PM
[2023-01-12 18:07] LABS: C Reactive Protein 8.57 mg/dl (0-0.5)
[2023-01-12 18:09] LABS: SARS CoV2 RNA(COVID-19) Ceph POSITIVE (Negative)
--- NOTE | 2023-01-12 18:57 | History & Physical Report ---
Date of Service January 12, 2023 Assessment & Plan (1) COVID: Plan: First day of symptoms 01/07 Vaccinated and boosted (last booster last year) Never had COVID previously Isolation precautions Dexamethasone 6mg IV daily for 10 days Finish his molnupiravir dosing (2) Hypoxia: Plan: Suspect he is not far off his baseline as already has oxygen at home as needed. 6 minute walk test in June 2022 he was 90% on room air at baseline. He appears to be around 85- 90% on room air at rest today when the pulse oximeter has a good reading but this is intermittent His intermittent much worse hypoxia at home may be mucus plugging vs. poor reading Patient keen to be discharged but some concern from his he is not doing well at home and he is more hypoxic than usual therefore will admit overnight and get 2 step, PT, OT evals tomorrow - potentially can go home once oxygen is arranged at home. (3) COPD (chronic obstructive pulmonary disease): Plan: No acute exacerbation suspected with lack of wheezing Continue his routine inhalers with albuterol PRN (4) Cirrhosis: Plan: Patient not clear on this diagnosis. Also has diagnosis of alcohol abuse but currently report 2-3 beers/week. Encouraged complete cessation of alcohol. Plt normal therefore suspect INR is reflective of his warfarin dosing alone. (5) Afib: Plan: Continue warfarin for anticoagulation Rate controlled not on AV marino blocking agents (6) PMR (polymyalgia rheumatica): Plan: Patient denies history of this but appears to have been a legitimate diagnosis winter. Not currently on steroids and no prescriptions seen in the last year. Possibly related to statin use at that time per PCP note in June. Continue to monitor for stiffness Plan VTE Prophylaxis - warfarin therapeutic Diet - regular Disposition - admit to med/surg Admission and Anticipated Discharge Date Admission Date: January 12, 2023 History of Present Illness Chief Complaint: Hypoxia Primary Care Provider: Tej Salazar MD Robert Luna is a 77 year old male with COPD (severe per prior PCP note) who presents to the ER with hypoxia after recent diagnosis of COVID-19. He reports first day of symptoms 5 days ago. Having a productive cough, fatigue, shortness of breath and nasal congestion. Reports his productive cough is very sticky and hard to get up. He had a virtual visit with his PCP office the same day of symptom onset and was started on molnupiravir. He was advised to go the ER if oxygen saturation drop below 90%. Today he O2 sats were in the low 80s this morning therefore decided to come to the ER but he feels like he is managing fine at home. His appears to suggest otherwise and on talking to the patient he has a poor baseline even before this with little exertion as he is limited by shortness of breath from his COPD. He has oxygen already to use for his COPD as needed but at baseline he is on room air. He reports feeling no better after receiving duoneb in the ER. He is vaccinated and boosted with last vaccine December 2021 per his 's recollection. Never had COVID previously. Allergies Allergy/AdvReac Type Severity Reaction Status Date / Time No Known Allergies Allergy Verified 11/14/22 10:28 Home Medications Medication Instructions Recorded Confirmed Type albuterol sulfate 90 mcg/actuation 2 puff inhalation Q6H PRN 01/21/22 01/12/23 Rx aerosol inhaler (Ventolin HFA) shortness of breath or wheezing #6.7 grams budesonide-formoterol HFA 160 See Rx Instructions .Route 04/05/22 01/12/23 Rx mcg-4.5 mcg/actuation aerosol .COMPLEX #10.2 grams inhaler (Symbicort) umeclidinium 62.5 mcg/actuation 1 inh inhalation DAILY #30 ea 04/18/22 01/12/23 Rx blister powder for inhalation (Incruse Ellipta) furosemide 40 mg tablet (Lasix) 40 mg PO .COMPLEX #120 tabs 07/15/22 01/12/23 Rx ezetimibe 10 mg tablet (Zetia) 10 mg PO DAILY #90 tabs 07/26/22 01/12/23 Rx warfarin 5 mg tablet 5 mg PO .COMPLEX #90 tabs 09/04/22 01/12/23 Rx molnupiravir 200 mg capsule (EUA) 800 mg (4 x 200 mg) PO Q12H 5 days 01/08/23 01/12/23 Rx #40 caps Past Med/Surg History Medical History (Updated 01/13/23 @ 07:10 by John Villaseñor MD) Afib Benign prostatic hyperplasia with urinary obstruction Elevated liver enzymes Sebaceous cyst Cellulitis of right foot COPD (chronic obstructive pulmonary disease) CHF (congestive heart failure) Surgical History Pilonidal cyst Hx of cataract surgery Family History Father Coronary heart disease Prostate cancer Myocardial infarction Uncle Prostate cancer Mother Colon cancer Other Pancreatic cancer Denies family history of Ovarian cancer Breast cancer Social History Smoking Status: Never smoker Second Hand Exposure: Yes; Do You Dip or Chew Tobacco: No; Hx Alcohol Use: Yes Alcohol type: beer Alcohol Intake Frequency: 2-3 x/Week Hx Substance Use: No Preferred Language: Niuean Communication Ability: Effective Visual Impairment: No Limitations Hearing Ability: Normal Alpine Patroller Required: No Beliefs That Will Affect Care: None marital status: Current Living Situation: Spouse current occupational status: retired Feels Safe at Home: Yes Safety Concerns: Feels Safe At This Time Diet: regular Dental Care, Regularly: No Physical Activity Frequency: 3-4 Times per Week Seatbelt Use: always Sunscreen Use: No Assistive Devices: Cane, Denture - Upper, Denture - Lower, Glasses and Oxygen - Continuous Review of Systems Review of Systems: All systems reviewed & are unremarkable except as noted in HPI & below Physical Exam Constitutional: WD/WN, vitals as above Eyes: + anicteric sclerae; normal pupil size ENMT: external ear and nose normal, oropharynx normal Respiratory: normal respiratory effort; no respiratory distress Auscultation: lungs clear to auscultation bilaterally; breath sounds present, no diminished lung sounds, no crackles, no rales, no rhonchi and no wheezes Cardiovascular: Rate/Rhythm: regular rate and + irregularly irregular Heart Sounds: no murmur Extremities: normal capillary refill; no calf tenderness and no pedal edema Gastrointestinal (Abdomen): normal bowel sounds, soft, nontender, no hepatosplenomegaly Musculoskeletal: no cyanosis or clubbing, extremities motor strength 5/5 Skin: no rashes, warm and dry Neurologic: moves all extremities, awake and + confused (appears mildly confused and not able to tell me much about his medical hist) Psychiatric: A+Ox3, euthymic affect Results & Data Results & Data Vital Signs (Past 12 Hours) Vital Signs Temp Pulse Pulse Resp BP BP Pulse Ox 01/12/23 18:25 74 01/12/23 18:21 70 19 132/90 92 01/12/23 16:18 36.2 C L 65 20 95/58 L 91 O2 Del Method 01/12/23 18:25 01/12/23 18:21 Room Air 01/12/23 16:18 Room Air Laboratory Results Abnormal lab results 01/12/23 01/12/23 Range/Units 16:33 16:39 Lymph # (Auto) 1.18 L (1.20-3.40) K/uL [place] # (Auto) 1.07 H (0.11-0.59) K/uL PT 21.4 H (9.0-12.0) Seconds INR 2.0 H (0.9-1.1) APTT 39.2 H (21.0-31.0) Seconds Sodium 134 L (136-145) mmol/L BUN/Creatinine Ratio 20.2 H (10-20) Calcium 8.5 L (8.6-10.3) mg/dl Total Bilirubin 1.2 H (0.2-1.0) mg/dl AST 12 L (13-39) U/L C-Reactive Protein 8.57 H (0-0.5) mg/dl B-Natriuretic Peptide 310 H (0-100) pg/ml SARS-CoV-2 (PCR) POSITIVE A* (Negative) Diagnostic Findings XR chest 1V not portable CLINICAL HISTORY: Cough. COMPARISON STUDY: Chest CT May 10, 2014. Chest radiograph January 30, 2021. FINDINGS: Old distal right clavicular fracture is incidentally noted. Lung volumes are normal. There is no consolidation to suggest pneumonia. Linear bibasilar densities favor atelectasis or scarring. There is no pneumothorax or pleural effusion. Cardiomegaly is unchanged. Mediastinal contours are normal. There is no evidence for pulmonary edema. IMPRESSION: No acute cardiopulmonary findings. Cardiomegaly. Medications Administered ER Medications Given: Duoneb 3ml NEB Dexamethasone 6mg IV Normal saline 500ml bolus ECG Rate (beats per minute): 66 Rhythm: atrial fibrillation Findings: + left axis deviation Comparison ECG Date: from (Jan 30, 2021) Change: no significant change Code Status & VTE Plan Code Status Full VTE Prophylaxis Plan VTE Prophylaxis will be ordered: Yes PG Care Time/CCT Total # of Minutes Spent Total Time Spent with Patient: Total time spent is greater than 50% in coordination of care (as documented) at patient's floor/unit and/or counseling patient: Coding Level of Care Code 75171 INT INP/OBS CARE 2/55MIN Diagnoses COVID U07.1 Hypoxia R09.02 Mucopurulent chronic bronchitis J41.1 COPD type: chronic bronchitis Chronic bronchitis type: mucopurulent Alcoholic cirrhosis of liver without ascites K70.30 Hepatic cirrhosis type: alcoholic cirrhosis Ascites presence: without ascites Permanent atrial fibrillation I48.21 Atrial fibrillation type: permanent PMR (polymyalgia rheumatica) M35.3 (3) COPD (chronic obstructive pulmonary disease) COPD type: chronic bronchitis Chronic bronchitis type: mucopurulent Qualified Code(s): J41.1 - Mucopurulent chronic bronchitis (4) Cirrhosis Hepatic cirrhosis type: alcoholic cirrhosis Ascites presence: without ascites Qualified Code(s): K70.30 - Alcoholic cirrhosis of liver without ascites (5) Afib Atrial fibrillation type: permanent Qualified Code(s): I48.21 - Permanent atrial fibrillation
--- NOTE | 2023-01-12 19:35 | Emergency Department Note ---
Impression & Plan Hypoxia, COPD exacerbation, SOB (shortness of breath), COVID-19, Failure of outpatient treatment ED Provider Note NAME: DELICIA HERNANDEZ AGE: 77 SEX: M : 1945 ARRIVES VIA: Walk-In INFORMANT: [Patient] ED PROVIDER(S): [Bill Oshea MD] CHIEF COMPLAINT: Short of breath, illness HISTORY OF PRESENT ILLNESS: The patient is a 77-year-old male presents to the ED with a week maybe a week and a half of some shortness of breath, fatigue, weakness. The patient states that he took a COVID test as an outpatient and the result returned positive. He did go to his doctor's office on the , 4 days ago. He was prescribed molnupiravir. He has been taking this as prescribed. The patient's O2 saturation was low today, below 90%. He felt short of breath and quite weak. He has not improved on the medication prescribed. The patient was told by his doctor's office to report to the ED for hospitalization if he were to become hypoxic. Patient does have COPD. He does not have a nebulizer but does use an inhaler at home. He has oxygen that he occasionally uses, he is not on O2 chronically. PMHx/PSHx/Social Hx: See Below PHYSICAL EXAM: GENERAL: Patient is in no acute distress. HEENT: No acute trauma, normocephalic atraumatic, mucous membranes moist, no nasal congestion. NECK: No stridor, no adenopathy, no meningismus, trachea is midline. LUNGS: Clear to auscultation bilaterally, no wheeze, no rhonchi, breath sounds equal. HEART: Subtle systolic murmur, regular rate and rhythm. ABDOMEN: Soft, nontender, no peritonitis. EXTREMITIES: No cyanosis, full range of motion of all the joints without pain or difficulty. NEUROLOGIC: Oriented x 3, no acute motor or sensory deficits, no focal weakness. SKIN: No jaundice, no diaphoresis. DIFFERENTIAL DIAGNOSIS: COVID-19, pneumonia, CHF, bronchitis, pneumothorax, anemia, failed outpatient management, among others. EMERGENCY DEPARTMENT PROCEDURES: MEDICAL DECISION MAKING: There is no leukocytosis or concerning anemia. There is a normal platelet count. INR is 2, consistent with his Coumadin use. No renal failure or significant electrolyte abnormality. Lactic acid level was not elevated making severe sepsis less likely. There were some subtle liver enzyme elevations. BNP was high at 300, this certainly makes CHF and fluid overload more likely. COVID test returned positive, influenza and RSV test were negative. Chest film shows some chronic change, I see no pneumonia or pneumothorax. No concerning CHF. On exam, the patient was found to be hypoxic without O2 supplementation. He is lungs sounded clear. He was not febrile. The patient was given a DuoNeb, IV Decadron and IV saline. The patient has COVID-19, this has flared his COPD and led to some dyspnea, fatigue and hypoxia. His family doctor's office did try to treat the patient outpatient with molnupiravir, he has not improved. Given the hypoxia, hospitalization was felt warranted. I did speak with case management, the on-call hospitalist was consulted. Prior/Outside records/notes reviewed: Family practice note from 01/08/2023 discussing his COVID-19 diagnosis and the use of molnupiravir. ECG per my interpretation: ECG shows atrial fibrillation with a rate of 66. There is diffuse nonspecific ST change. There is no ST elevation. There is a potential old anterior infarct. No PVCs. QTc is 431. Continuous Cardiac Monitoring per my interpretation: An order was placed for continuous cardiac monitoring. The monitor shows a rate of 81 with atrial fibrillation. Imaging/x-ray results per my interpretation: Chest x-ray does not show CHF or pneumonia, some chronic change was noted. Chronic Medical/Social conditions affecting care: COPD. Care/Management discussed with: Case management as well as the on-call hospitalist Level of care consideration(s): After review of the information above and other included data: --I believe the patient requires escalation of care to admission DISPOSITION: Admission Past Med/Surg History Medical History Benign prostatic hyperplasia with urinary obstruction Elevated liver enzymes Sebaceous cyst Cellulitis of right foot Afib COPD (chronic obstructive pulmonary disease) CHF (congestive heart failure) Surgical History Pilonidal cyst Hx of cataract surgery Family History Father Coronary heart disease Prostate cancer Myocardial infarction Uncle Prostate cancer Mother Colon cancer Other Pancreatic cancer Denies family history of Ovarian cancer Breast cancer Social History Smoking Status: Former smoker Second Hand Exposure: Yes; Do You Dip or Chew Tobacco: No; Hx Alcohol Use: No Hx Substance Use: No Preferred Language: Stateless Communication Ability: Effective Visual Impairment: No Limitations Hearing Ability: Normal Furniture Salesperson Required: No Beliefs That Will Affect Care: None marital status: Current Living Situation: Spouse current occupational status: retired Feels Safe at Home: Yes Diet: regular Dental Care, Regularly: No Physical Activity Frequency: 3-4 Times per Week Seatbelt Use: always Sunscreen Use: No Assistive Devices: None Allergies Allergies Allergy/AdvReac Type Severity Reaction Status Date / Time No Known Allergies Allergy Verified 11/14/22 10:28 Home Meds Previous Rx's Medication Instructions Recorded albuterol sulfate 90 mcg/actuation 2 puff inhalation Q6H PRN 01/21/22 aerosol inhaler (Ventolin HFA) shortness of breath or wheezing #6.7 grams budesonide-formoterol HFA 160 See Rx Instructions .Route 04/05/22 mcg-4.5 mcg/actuation aerosol .COMPLEX #10.2 grams inhaler (Symbicort) umeclidinium 62.5 mcg/actuation 1 inh inhalation DAILY #30 ea 04/18/22 blister powder for inhalation (Incruse Ellipta) furosemide 40 mg tablet (Lasix) 40 mg PO .COMPLEX #120 tabs 07/15/22 ezetimibe 10 mg tablet (Zetia) 10 mg PO DAILY #90 tabs 07/26/22 warfarin 5 mg tablet 5 mg PO .COMPLEX #90 tabs 09/04/22 molnupiravir 200 mg capsule (EUA) 800 mg (4 x 200 mg) PO Q12H 5 days 01/08/23 #40 caps Results & Data (ED) Vital Signs Vital Signs - 24 hr 01/12/23 16:18 01/12/23 18:21 01/12/23 18:25 Temperature 36.2 C L Temperature Source Temporal Artery Scan Pulse Rate 65 74 Pulse Rate [Apical] 70 Pulse Rhythm Regular Pulse Rhythm [Apical] Pulse Strength Normal Respiratory Rate 20 19 Respiratory Effort / Characteristics Non-Labored Spontaneous Non-Labored Respiratory Depth Normal Normal Respiratory Pattern Regular Blood Pressure 95/58 L Blood Pressure [Right Arm] 132/90 Blood Pressure Mean 70 Blood Pressure Mean [Right Arm] 104 Blood Pressure Position Sitting Pulse Oximetry 91 92 Oxygen Delivery Method Room Air Room Air Oxygen Flow Rate Sepsis Recent Fever Within 48 Hours No Sepsis New/Unexplained Change in Mental Status No Sepsis Action Taken by Nursing No Action Required 01/12/23 19:00 Temperature Temperature Source Pulse Rate Pulse Rate [Apical] 81 Pulse Rhythm Pulse Rhythm [Apical] Regular Pulse Strength Respiratory Rate 18 Respiratory Effort / Characteristics Non-Labored Respiratory Depth Normal Respiratory Pattern Blood Pressure Blood Pressure [Right Arm] 141/87 H Blood Pressure Mean Blood Pressure Mean [Right Arm] 105 Blood Pressure Position Pulse Oximetry 91 Oxygen Delivery Method Nasal Cannula Oxygen Flow Rate 2 Sepsis Recent Fever Within 48 Hours Sepsis New/Unexplained Change in Mental Status Sepsis Action Taken by Senior [facility] Medications Current Medication List: was personally reviewed by me Laboratory Data Attestation: I reviewed the patient's lab results. 01/12/23 16:39 01/12/23 16:39 Lab Results 01/12/23 01/12/23 01/12/23 Range/Units 16:33 16:39 16:45 WBC 6.09 (4.8-10.8) K/ul RBC 4.75 (4.70-6.10) M/uL Hgb 14.5 (14.0-18.0) g/dl Hct 44.8 (42.0-52.0) % MCV 94.3 (80.0-100.0) fL MCH 30.5 (25.0-34.0) pg MCHC 32.4 (32.0-36.0) g/dL RDW Std Deviation 46.3 (36.4-46.3) fL RDW Coeff of [place] 13.2 (11.5-14.5) % Plt Count 143 (130-400) K/uL MPV 10.2 (9.4-12.4) fL Immature Gran % (Auto) 0.2 % Neut % (Auto) 62.4 % Lymph % (Auto) 19.4 % [place] % (Auto) 17.6 % Eos % (Auto) 0.2 % Baso % (Auto) 0.2 % Neut # (Auto) 3.81 (1.40-6.50) K/uL Lymph # (Auto) 1.18 L (1.20-3.40) K/uL [place] # (Auto) 1.07 H (0.11-0.59) K/uL Eos # (Auto) 0.01 (0.00-0.50) K/uL Baso # (Auto) 0.01 (0.00-0.20) K/uL Immature Gran # (Auto) 0.01 (0.01-0.20) K/uL PT 21.4 H (9.0-12.0) Seconds INR 2.0 H (0.9-1.1) APTT 39.2 H (21.0-31.0) Seconds PTT Ratio 1.4 Sodium 134 L (136-145) mmol/L Potassium 4.0 (3.5-5.1) mmol/L Chloride 99 (98-107) mmol/L Carbon Dioxide 30 (21-32) mmol/L Anion Gap 5 (3-11) BUN 21 (6-23) mg/dl Creatinine 1.04 (0.6-1.4) mg/dl Est Cr Clr Drug Dosing Not Reportable Est GFR ( Amer) 78.8 ml/min Est GFR (Non-Af Amer) 68.0 ml/min BUN/Creatinine Ratio 20.2 H (10-20) Glucose 96 (70-99(Fasting)) mg/dl Lactate 1.2 (0.4-2.0) mmol/L Calcium 8.5 L (8.6-10.3) mg/dl Magnesium 2.0 (1.7-2.4) mg/dl Total Bilirubin 1.2 H (0.2-1.0) mg/dl AST 12 L (13-39) U/L ALT 12 (7-52) U/L Alkaline Phosphatase 68 (34-104) U/L Troponin I High Sens 6.6 (0-20) pg/ml C-Reactive Protein 8.57 H (0-0.5) mg/dl B-Natriuretic Peptide 310 H (0-100) pg/ml Total Protein 6.7 (6.0-8.3) gm/dl Albumin 3.7 (3.4-5.0) gm/dl Globulin 3.0 (2.5-4.0) gm/dl Albumin/Globulin Ratio 1.2 (0.9-2) Procalcitonin < 0.05 (0-0.5) ng/ml SARS-CoV-2 (PCR) POSITIVE A* (Negative) Influenza Type A (PCR) Negative (Neg) Influenza Type B (PCR) Negative (Neg) RSV (RT-PCR) Negative (Neg) Administered Medications Discontinued Medications Albuterol (Albut/Ipratrop 3mg/0.5mg Neb 3 Ml Vial) 3 ml NEB NOW STA; Protocol Stop: 01/12/23 17:16 Last Admin: 01/12/23 18:06 Dose: 3 ml Documented By: MARIA LUZ Dexamethasone Sodium Phosphate (DexamethasonePf 10 Mg/Ml Vial) 6 mg IV NOW ONE Stop: 01/12/23 17:16 Last Admin: 01/12/23 18:06 Dose: 6 mg Documented By: MARIA LUZ Sodium Chloride (Nss) 500 mls @ 999 mls/hr IV .Q31M ONE Stop: 01/12/23 17:45 Last Admin: 01/12/23 18:23 Dose: 999 mls/hr Documented By: MARIA LUZ Imaging Data Radiologist's Impression: Chest X-Ray 01/12/23 16:21 XR chest 1V not portable CLINICAL HISTORY: Cough. COMPARISON STUDY: Chest CT May 10, 2014. Chest radiograph January 30, 2021. FINDINGS: Old distal right clavicular fracture is incidentally noted. Lung volumes are normal. There is no consolidation to suggest pneumonia. Linear bibasilar densities favor atelectasis or scarring. There is no pneumothorax or pleural effusion. Cardiomegaly is unchanged. Mediastinal contours are normal. There is no evidence for pulmonary edema. IMPRESSION: No acute cardiopulmonary findings. Cardiomegaly. ACT 112: Negative or not required by law. Electronically signed by: Ludin Whitfield M.D. 01/12/2023 5:45 PM Discharge Plan Visit Data Chief Complaint: Illness Stated Complaint: TROUBLE BREATHING, O2 IN THE 70S, COVID+ ON 01/07 ED Provider: Bill Oshea Discharge Problem: Hypoxia, COPD exacerbation, SOB (shortness of breath), COVID-19, Failure of outpatient treatment Patient Disposition: Admitted As Inpatient Condition: Fair Forms Stand Alone Forms: My [facility] ODIN Prescriptions Prescriptions: No Action albuterol sulfate [Ventolin HFA] 90 mcg/actuation HFA aerosol inhaler 2 puff inhalation Q6H PRN (Reason: shortness of breath or wheezing) Qty: 6.7 11RF budesonide-formoterol [Symbicort] 160-4.5 mcg/actuation HFA aerosol inhaler See Rx Instructions .ROUTE .COMPLEX Qty: 10.2 11RF Dose Instruction: INHALE 2 PUFFS by mouth TWICE DAILY and RINSE MOUTH AFTER USE. Rx Instructions: INHALE 2 PUFFS by mouth TWICE DAILY and RINSE MOUTH AFTER USE. Incruse Ellipta 62.5 mcg/actuation blister with device 1 inh INHALATION DAILY Qty: 30 11RF furosemide [Lasix] 40 mg tablet 40 mg PO .COMPLEX Qty: 120 3RF Rx Instructions: 40 mg PO take 1 tablet daily and can take one additional 40 mg tablet as needed for swelling.; ezetimibe [Zetia] 10 mg tablet 10 mg PO DAILY Qty: 90 3RF warfarin 5 mg tablet 5 mg PO .COMPLEX Qty: 90 3RF Protocol: Dose Management Condition: Friday Dose/Route: 2.5 mg Instruction: 0.5 x 5 mg tablets Condition: Friday Dose/Route: 2.5 mg Instruction: 0.5 x 5 mg tablets Condition: Friday Dose/Route: 5 mg Instruction: 1 x 5 mg tablet Condition: Friday Dose/Route: 2.5 mg Instruction: 0.5 x 5 mg tablets Condition: Dose/Route: 5 mg Instruction: 1 x 5 mg tablet Condition: Friday Dose/Route: 2.5 mg Instruction: 0.5 x 5 mg tablets Condition: Friday Dose/Route: 5 mg Instruction: 1 x 5 mg tablet Protocol Text: Adjustment Start Date: Friday01/06/23 INR Value: 2.4 INR Date: 01/06/23 Recheck Date: 02/05/23 Rx Instructions: 5 mg PO Or as directed to achieve an INR of 2-3.; TTS - 5mg, MWFS - 2.5mg molnupiravir 200 mg capsule 800 mg PO Q12H 5 Days Qty: 40 0RF Referrals Referrals: Tej Salazar MD [Primary Care Provider] -
[2023-01-12] MEDS ORDERED: ACETAMINOPHEN 325 MG TAB PO PRN (21:08)
[2023-01-12] MEDS ORDERED: ALBUTEROL HFA 8 GM INHALER INH PRN (21:08)
[2023-01-12] MEDS: guaiFENesin 600 MG TABCR PO SCH (22:35)
[2023-01-13 07:29] LABS: Basophils # (auto) 0.01 K/uL (0.00-0.20); Basophils % (auto) 0.2 %; Hematocrit (blood only) 45.6 % (42.0-52.0); Hemoglobin 14.4 g/dl (14.0-18.0); Immature Granulocytes # (auto) 0.02 K/uL (0.01-0.20); Immature Granulocytes % (auto) 0.5 %; Lymphocytes # (auto) 0.57 K/uL (1.20-3.40); Lymphocytes % (auto) 13.3 %; Mean Corpuscular Hemoglobin 29.9 pg (25.0-34.0); Mean Corpuscular Hgb Conc 31.6 g/dL (32.0-36.0); Mean Corpuscular Volume 94.8 fL (80.0-100.0); Mean Platelet Volume 9.7 fL (9.4-12.4); Monocytes # (auto) 0.58 K/uL (0.11-0.59); Monocytes % (auto) 13.6 %; Neutrophils % (auto) 72.4 %; Platelet Count 141 K/uL (130-400); RDW Coefficient of Variation 13.1 % (11.5-14.5); RDW Standard Deviation 45.6 fL (36.4-46.3); Red Blood Count 4.81 M/uL (4.70-6.10); White Blood Count 4.28 K/ul (4.8-10.8)
[2023-01-13 07:41] LABS: Prothrombin Time 21.3 Seconds (9.0-12.0)
[2023-01-13 08:05] LABS: Albumin Globulin Ratio 1.3 (0.9-2); Albumin Level 3.6 gm/dl (3.4-5.0); BUN Creatinine Ratio 21.3 (10-20); Bilirubin,Total 1.1 mg/dl (0.2-1.0); Calcium 8.7 mg/dl (8.6-10.3); Creatinine Clr Calc Pharmacy 87.4 ml/min; Est GFR (African American) 98.5 ml/min; Globulin 2.8 gm/dl (2.5-4.0); Potassium 5.1 mmol/L (3.5-5.1); Total Protein 6.4 gm/dl (6.0-8.3)
[2023-01-13] MEDS: guaiFENesin 600 MG TABCR PO SCH (08:25)
[2023-01-13] MEDS ORDERED: EZETIMIBE 10 MG TAB PO SCH (09:00)
[2023-01-13] MEDS ORDERED: UMECLIDINIUM BROMIDE 62.5MCG/BLISTER 7 PUFFS/INHALER INH SCH (09:00)
[2023-01-13] MEDS ORDERED: dexAMETHasone 6 MG in SYRINGE 0 ML IV SCH (09:00)
[2023-01-13] MEDS ORDERED: FLUTICASONE/VILANTEROL 100/25MCG 14 PUFFS/INHALER INH SCH (09:00)
[2023-01-13] MEDS ORDERED: DEXAMETHASONE SOD INJ 4 MG/ML VIAL IV SCH (09:00)
[2023-01-13] MEDS ORDERED: FUROSEMIDE 40 MG TAB PO SCH (09:00)
--- NOTE | 2023-01-13 14:13 | Discharge Summary ---
Date of Service January 13, 2023 Admission HPI Per Admitting Provider Robert Luna is a 77 year old male with COPD (severe per prior PCP note) who presents to the ER with hypoxia after recent diagnosis of COVID-19. He reports first day of symptoms 5 days ago. Having a productive cough, fatigue, shortness of breath and nasal congestion. Reports his productive cough is very sticky and hard to get up. He had a virtual visit with his PCP office the same day of symptom onset and was started on molnupiravir. He was advised to go the ER if oxygen saturation drop below 90%. Today he O2 sats were in the low 80s this morning therefore decided to come to the ER but he feels like he is managing fine at home. His appears to suggest otherwise and on talking to the patient he has a poor baseline even before this with little exertion as he is limited by shortness of breath from his COPD. He has oxygen already to use for his COPD as needed but at baseline he is on room air. He reports feeling no better after receiving duoneb in the ER. He is vaccinated and boosted with last vaccine December 2021 per his 's recollection. Never had COVID previously. Discharge Data Consultations 01/12/23 17:26 ED Decision to Admit Stat Hospital Course (1) COVID: First day of symptoms 01/07 Vaccinated and boosted (last booster last year), Never had COVID previously Isolation precautions Dexamethasone 6mg daily for 10 days - last dose 01/21/2023 Finished molnupiravir 01/13 (2) Hypoxia: Suspect he is not far off his baseline as already has oxygen at home as needed. 6 minute walk test in June 2022 he was 90% on room air at baseline. 2 Step - recommending 2L with activity (3) COPD (chronic obstructive pulmonary disease): No acute exacerbation suspected with lack of wheezing Continue his routine inhalers with albuterol PRN Oxygen needs as above. (4) Cirrhosis: Patient not clear on this diagnosis - but does follow with GI outpatient for this. Also has diagnosis of alcohol abuse but currently report 2-3 beers/week. Encouraged complete cessation of alcohol. Plt normal therefore suspect INR is reflective of his warfarin dosing alone. (5) Afib: Continue warfarin for anticoagulation Rate controlled not on AV marino blocking agents Will need repeat PT/INR 01/15 (6) PMR (polymyalgia rheumatica): Patient denies history of this but appears to have been a legitimate diagnosis winter. Not currently on steroids and no prescriptions seen in the last year. Possibly related to statin use at that time per PCP note in June. Continue to monitor for stiffness Plan Discharge home with . Patient already has oxygen at home. Discharge Instructions Continue oral dexamethasone for 8 days - rx to [facility]. wear O2 with activity Call PCP or return with any new or worsening symptoms/shortness of breath, chest pain Supervising Physician Co-Signing Physician Notes PA Supervision Note: I personally saw and examined the patient. I verified all house points and agree with BROOKE Rico with the following exceptions and/or additions: S-Pt feleing fine, not SOB, mild productive cough. Anxious to get home. O- Vitals reviewed Gen: [AAOx3, NAD] HEENT: [anicteric sclerae, EOMI] CV: [RRR no mgr nl S1S2] Pulm: [CTAB no wcr] Abd: [+BS soft NT ND no masses or hernias] Ext: [no edema] Skin: [no rashes, warm/dry] Neuro: [full strength throughout] A/P-77 yo male here with COVID and mild hypoxia, generalized weakness. Improved with decadron. I sambulating independently, needing 2L O2 with exertion, stable for discharge to home Coding Level of Care Code 97722 INP/OBS DISCH >30 MIN Diagnoses COVID U07.1 Hypoxia R09.02 Mucopurulent chronic bronchitis J41.1 COPD type: chronic bronchitis Chronic bronchitis type: mucopurulent Alcoholic cirrhosis of liver without ascites K70.30 Ascites presence: without ascites Hepatic cirrhosis type: alcoholic cirrhosis Permanent atrial fibrillation I48.21 Atrial fibrillation type: permanent PMR (polymyalgia rheumatica) M35.3
[2023-01-13] MEDS ORDERED: WARFARIN SOD 2.5 MG TAB PO SCH (16:00)
[2023-01-14] MEDS ORDERED: WARFARIN SOD 5 MG TAB PO SCH (16:00)
--- NOTE | 2023-01-15 23:03 | Electrocardiogram Report ---
Test Reason : Blood Pressure : / mmHG Vent. Rate : 066 BPM Atrial Rate : 000 BPM P-R Int : 000 ms QRS Dur : 082 ms QT Int : 412 ms P-R-T Axes : 000 -72 024 degrees QTc Int : 431 ms Poor data quality, interpretation may be adversely affected Atrial fibrillation Left axis deviation Anterior infarct (cited on or before 30-JAN-2021) Abnormal ECG When compared with ECG of 30-JAN-2021 15:21, Questionable change in initial forces of Septal leads Confirmed by Nahid Bingham ([id number]) on 01/15/2023 11:03:09 PM Referred By: REFERRED SELF Confirmed By:Nahid Bingham
== END 2023-01-13 15:05 | disposition home or self-care (01) | DRG 178 ==
LOC: ED 16:10 → 3N 19:36 → SUATTDRO 19:36 → 3N 20:35

== ENCOUNTER 2023-12-10 16:04 | Inpatient (IN) ==
[2023-12-10 16:52] LABS: Basophils # (auto) 0.01 K/uL (0.00-0.20); Basophils % (auto) 0.2 %; Eosinophils # (auto) 0.03 K/uL (0.00-0.50); Eosinophils % (auto) 0.5 %; Hematocrit (blood only) 47.5 % (42.0-52.0); Hemoglobin 14.6 g/dl (14.0-18.0); Immature Granulocytes # (auto) 0.01 K/uL (0.01-0.20); Immature Granulocytes % (auto) 0.2 %; Lymphocytes # (auto) 0.65 K/uL (1.20-3.40); Lymphocytes % (auto) 10.5 %; Mean Corpuscular Hemoglobin 29.8 pg (25.0-34.0); Mean Corpuscular Hgb Conc 30.7 g/dL (32.0-36.0); Mean Corpuscular Volume 96.9 fL (80.0-100.0); Mean Platelet Volume 9.8 fL (9.4-12.4); Monocytes # (auto) 0.76 K/uL (0.11-0.59); Monocytes % (auto) 12.3 %; Neutrophils # (auto) 4.74 K/uL (1.40-6.50); Neutrophils % (auto) 76.3 %; Platelet Count 126 K/uL (130-400); RDW Coefficient of Variation 14.6 % (11.5-14.5); RDW Standard Deviation 52.1 fL (36.4-46.3)
--- NOTE | 2023-12-10 16:52 | Electrocardiogram Report ---
Test Reason : Blood Pressure : */* mmHG Vent. Rate : 75 BPM Atrial Rate : * BPM P-R Int : * ms QRS Dur : 92 ms QT Int : 388 ms P-R-T Axes : * -70 -30 degrees QTcB Int : 433 ms Atrial fibrillation with a competing junctional pacemaker Left anterior fascicular block Poor R wave progression, consider anterior UT vs. lead placement vs. LVH Diffuse Minor Nonspecific T wave abnormality Abnormal ECG When compared with ECG of 12-Jan-2023 16:31, No significant change Confirmed by Kristofer Akhtar ([id number]) on 12/10/2023 4:52:06 PM Referred By: Confirmed By: Kristofer Akhtar
--- NOTE | 2023-12-10 16:57 | XRay Report ---
XR chest 1V not portable CLINICAL HISTORY: Chest pain, nonspecific COMPARISON STUDY: Chest radiograph January 12, 2023. Chest CT September 23, 2023. FINDINGS: Old deformity of the distal right clavicle is unchanged. There is no pneumothorax or pleura l effusion. Moderate cardiomegaly is noted. There is pulmonary vascular congestion. Linear bibasilar densities favor atelectasis. IMPRESSION: 1. Cardiomegaly with pulmonary vascular congestion. 2. Bibasilar densities suggestive of atelectasis. An infectious process is considered less likely. Ra diographic follow-up to ensure resolution is recommended. ACT 112: Negative or not required by law. Electronically signed by: Ludin Whitfield M.D. 12/10/2023 4:56 PM
[2023-12-10 17:04] LABS: Alanine Aminotransferase 17 U/L (7-52); Albumin Globulin Ratio 1.4 (0.9-2); Albumin Level 4.1 gm/dl (3.4-5.0); Alkaline Phosphatase 62 U/L (34-104); Anion Gap 5 (3-11); Aspartate Aminotransferase 23 U/L (13-39); BUN Creatinine Ratio 19.8 (10-20); Blood Urea Nitrogen 18 mg/dl (6-23); Calcium 8.8 mg/dl (8.6-10.3); Carbon Dioxide 33 mmol/L (21-32); Chloride 102 mmol/L (98-107); Globulin 2.9 gm/dl (2.5-4.0); Glucose 91 mg/dl (70-99(Fasting)); Potassium 4.7 mmol/L (3.5-5.1); Sodium 140 mmol/L (136-145)
[2023-12-10 17:15] LABS: INR 3.8 (0.9-1.1); Partial Thromboplastin Ratio 1.6; Partial Thromboplastin Time 43 Seconds (21-31); Prothrombin Time 36.6 Seconds (9.0-12.0)
[2023-12-10 17:17] LABS: Influenza A virus by PCR Negative (Neg); Influenza B virus by PCR Negative (Neg); RSV by PCR Negative (Neg); SARS CoV2 RNA(COVID-19) Ceph NEGATIVE (Negative)
--- NOTE | 2023-12-10 17:19 | Emergency Department Note ---
Impression & Plan Acute on chronic respiratory failure with hypoxia and hypercapnia, COPD (chronic obstructive pulmonary disease), Acute on chronic heart failure with preserved ejection fraction ED Provider Note NAME: DELICIA HERNANDEZ AGE: 78 SEX: M : 1945 ARRIVES VIA: Walk-In INFORMANT: Patient ED PROVIDER(S): Robin Caceres MD CHIEF COMPLAINT: Shortness of breath PLAN: Disposition: Admit MEDICAL DECISION MAKING: The patient is a pleasant 78-year-old gentleman with a past medical history of chronic respiratory failure on home oxygen as needed, COPD, atrial fibrillation on warfarin, cirrhosis, CKD, BPH, PAD, chronic diastolic heart failure who presents to the emergency department via walk-in accompanied by his partner for evaluation of worsening shortness of breath for the past week with productive discolored sputum. He denies nausea or vomiting. He reports he does have chronic lower extremity edema and this has progressed over the past week as well. He denies nausea or vomiting. He denies diarrhea. Denies any urinary symptoms. On evaluation patient is chronically ill-appearing, mildly dyspneic but no distress, afebrile with O2 saturation mid 90s on 3 L nasal cannula. He has rhonchi of the right mid to lower lung turner and wheezes bilaterally. He appears hypervolemic and exhibits 2+ bilateral lower extremity pitting edema. EKG demonstrates atrial fibrillation without overt acute ischemia. Chest x-ray demonstrates venous congestion with bibasilar densities which are suggestive of atelectasis however given the patient's report of discolored sputum suspicious for pneumonia. WBC, within normal limits. There is no neutrophilia but mild lymphopenia, nonspecific. H/H within normal limits. Platelets 126K, similar to prior. INR is supratherapeutic at 3.8 but no evidence of bleeding. VBG with pCO2 of 64 with pH of 7.3, chemistry without metabolic acidosis. Electrolytes LFTs are unremarkable. HS troponin is 11, nonspecific. BNP is 400, consistent with patient's hypervolemic appearance. Procalcitonin is undetectable. COVID- 19 PCR negative. Influenza and RSV PCR also negative. Given the patient's worsening respiratory symptoms where he is now using his supplemental oxygen [id number] they do agree with plan for admission for further management. Suspect symptoms multifactorial occluding component of COPD as well as possible pneumonia lotion to the hypervolemia in setting of diastolic heart failure. Treatment initiated with steroids, DuoNeb, guaifenesin, flutter valve in addition to ceftriaxone and azithromycin for CAP coverage and Lasix for diuresias. Case was d/w Dr. Villaseñor [facility] hospitalist who will evaluate the patient for admission. Further management per admitting team. Triage Nursing notes reviewed and agree them. Prior/external medical records reviewed Vital Signs: reviewed Differential diagnosis: Reactive airway disease, pneumonia, pneumothorax, COPD, CHF, infections, cardiac ischemia, pulmonary embolism, musculoskeletal, gastrointestinal, as well as other pathologies. ER treatment provided: See below. Diagnostics interpreted by me: ECG: Atrial fibrillation, 75 bpm, left anterior fascicular block, LVH, no overt ST ovation or depression, QTc 433, qrs 92. Cardiac Monitoring: An order for continuous cardiac monitoring was placed and demonstrated Atrial fibrillation, 75 bpm, Laboratory studies: See below Imaging studies: See below Consultation(s): Case was d/w MARIXA Santacruz hospitalist who will evaluate the patient for admission. HPI: The patient is a pleasant 78-year-old gentleman with a past medical history of chronic respiratory failure on home oxygen as needed, COPD, atrial fibrillation on warfarin, cirrhosis, CKD, BPH, PAD, chronic diastolic heart failure who presents to the emergency department via walk-in accompanied by his partner for evaluation of worsening shortness of breath for the past week with productive discolored sputum. He denies nausea or vomiting. He reports he does have chronic lower extremity edema and this has progressed over the past week as well. He denies nausea or vomiting. He denies diarrhea. Denies any urinary symptoms. ROS: See above HPI for pertinent positives & negatives. A total of 10 systems reviewed and were otherwise negative. VITALS:See Below PHYSICAL EXAMINATION: GENERAL: Awake, alert, mildly dyspneic, chronically ill-appearing, in no distress HENT: Normocephalic, atraumatic. Oropharynx unremarkable. EYES: Normal conjunctiva. Sclera non-icteric. NECK: Supple. No nuchal rigidity. FROM. No JVD. RESPIRATORY: Rhonchi of the right mid to lower lung turner and wheezes bilaterally. 2+ CARDIAC: Regular rate, irregular rhythm. Extremities warm and well perfused. Pulses equal. ABDOMEN: Soft, non-distended. No tenderness to palpation. No rebound or guarding. No masses. MUSCULOSKELETAL: Chest examination reveals no tenderness. The back is symmetrical on inspection without obvious abnormality. There is no CVA tenderness to palpation. No joint edema. LOWER EXTREMITIES: Calves are equal size bilaterally and non-tender. Bilateral lower extremity pitting edema. No discoloration. NEURO: Normal sensorium. No sensory or motor deficits noted. SKIN: No rash or jaundice noted. Robin Caceres MD Past Med/Surg History Problem List (Updated 12/10/23 @ 22:42 by Robin Caceres MD) Acute on chronic heart failure with preserved ejection fraction (Acute) COPD exacerbation Acute on chronic respiratory failure with hypoxia and hypercapnia (Acute) Finger joint swelling Secondary pulmonary arterial hypertension Chronic hypoxemic respiratory failure Lower extremity edema Severe muscle deconditioning COPD with chronic bronchitis Afib COVID Bloating Cirrhosis Renal lesion Abdominal aortic aneurysm (AAA) Hyperglycemia Proximal muscle weakness Joint stiffness of both shoulders Sciatica of right side Cough Polyneuropathy Peripheral arterial disease Neuropathy Benign prostatic hyperplasia with urinary obstruction Gait abnormality Spinal stenosis (Acute) Elevated PSA (Acute) residential (current) use of anticoagulants Gallstones with biliary obstruction CKD (chronic kidney disease) stage 2, GFR 60-89 ml/min Pulmonary hypertension ETOH abuse Hyperlipidemia Hypertension Chronic diastolic heart failure Elevated bilirubin (Acute) COPD (chronic obstructive pulmonary disease) (Chronic) Peripheral edema (Acute) Medical History PMR (polymyalgia rheumatica) Elevated liver enzymes Sebaceous cyst Cellulitis of right foot CHF (congestive heart failure) Surgical History Pilonidal cyst Hx of cataract surgery Family History Father Coronary heart disease Prostate cancer Myocardial infarction Uncle Prostate cancer Mother Colon cancer Other Pancreatic cancer Denies family history of Ovarian cancer Breast cancer Social History Smoking Status: Never smoker Second Hand Exposure: Yes; Do You Dip or Chew Tobacco: No; Hx Alcohol Use: Yes Alcohol type: beer Alcohol Intake Frequency: 2-3 x/Week Hx Substance Use: No Preferred Language: Sami Communication Ability: Effective Visual Impairment: No Limitations Hearing Ability: Normal Food Processing Scientist Required: No Beliefs That Will Affect Care: None marital status: Current Living Situation: Spouse current occupational status: retired Feels Safe at Home: Yes Diet: regular Dental Care, Regularly: No Physical Activity Frequency: 3-4 Times per Week Seatbelt Use: always Sunscreen Use: No Assistive Devices: Cane and Oxygen - Continuous Allergies Allergies Allergy/AdvReac Type Severity Reaction Status Date / Time No Known Allergies Allergy Verified 12/10/23 18:04 Home Meds Home Medications Medication Instructions Recorded Confirmed budesonide-formoterol HFA 160 2 inh inhalation BID 12/10/23 12/10/23 mcg-4.5 mcg/actuation aerosol inhaler (Symbicort) umeclidinium 62.5 mcg/actuation 1 inh inhalation DAILY 12/10/23 12/10/23 blister powder for inhalation (Incruse Ellipta) Previous Rx's Medication Instructions Recorded albuterol sulfate 90 mcg/actuation 2 puff inhalation Q6H PRN 01/30/23 aerosol inhaler (Ventolin HFA) shortness of breath or wheezing #6.7 grams warfarin 5 mg tablet 5 mg PO .COMPLEX #90 tabs 09/23/23 ezetimibe 10 mg tablet (Zetia) 10 mg PO DAILY #90 tabs 11/03/23 furosemide 40 mg tablet (Lasix) 40 mg PO .COMPLEX #120 tabs 11/03/23 Results & Data (ED) Vital Signs Vital Signs - 24 hr 12/10/23 16:13 12/10/23 17:48 12/10/23 20:31 Temperature 36.6 C Temperature Source Temporal Artery Scan Pulse Rate 72 Pulse Rate [Finger] 86 Respiratory Rate 20 20 Respiratory Effort / Characteristics Non-Labored Spontaneous Respiratory Depth Normal Blood Pressure 121/74 Blood Pressure [Right Arm] 152/108 H Blood Pressure Mean 89 Blood Pressure Mean [Right Arm] 122 Blood Pressure Position Sitting Pulse Oximetry 95 96 92 Oxygen Delivery Method Nasal Cannula Room Air Nasal Cannula Nasal Cannula Oxygen Flow Rate 3 3 2 Sepsis Recent Fever Within 48 Hours No Sepsis New/Unexplained Change in Mental Status No Sepsis Action Taken by Nursing No Action Required Oxygen Flow Rate - Titration 2 Pulse Oximetry Post Tiitration 98 12/10/23 22:00 Temperature Temperature Source Pulse Rate Pulse Rate [Finger] 85 Respiratory Rate 20 Respiratory Effort / Characteristics Respiratory Depth Blood Pressure Blood Pressure [Right Arm] Blood Pressure Mean Blood Pressure Mean [Right Arm] Blood Pressure Position Pulse Oximetry 93 Oxygen Delivery Method Nasal Cannula Oxygen Flow Rate 2 Sepsis Recent Fever Within 48 Hours Sepsis New/Unexplained Change in Mental Status Sepsis Action Taken by Nursing Oxygen Flow Rate - Titration Pulse Oximetry Post Tiitration Laboratory Data Attestation: I reviewed the patient's lab results. 12/10/23 16:20 12/10/23 16:20 Lab Results 12/10/23 12/10/23 12/10/23 Range/Units 16:20 18:04 20:51 WBC 6.20 (4.8-10.8) K/ul RBC 4.90 (4.70-6.10) M/uL Hgb 14.6 (14.0-18.0) g/dl Hct 47.5 (42.0-52.0) % MCV 96.9 (80.0-100.0) fL MCH 29.8 (25.0-34.0) pg MCHC 30.7 L (32.0-36.0) g/dL RDW Std Deviation 52.1 H (36.4-46.3) fL RDW Coeff of Cameron 14.6 H (11.5-14.5) % Plt Count 126 L (130-400) K/uL MPV 9.8 (9.4-12.4) fL Immature Gran % (Auto) 0.2 % Neut % (Auto) 76.3 % Lymph % (Auto) 10.5 % Ralls % (Auto) 12.3 % Eos % (Auto) 0.5 % Baso % (Auto) 0.2 % Neut # (Auto) 4.74 (1.40-6.50) K/uL Lymph # (Auto) 0.65 L (1.20-3.40) K/uL Ralls # (Auto) 0.76 H (0.11-0.59) K/uL Eos # (Auto) 0.03 (0.00-0.50) K/uL Baso # (Auto) 0.01 (0.00-0.20) K/uL Immature Gran # (Auto) 0.01 (0.01-0.20) K/uL PT 36.6 H (9.0-12.0) Seconds INR 3.8 H (0.9-1.1) APTT 43 H (21-31) Seconds PTT Ratio 1.6 VBG pH 7.33 L (7.36-7.41) VBG pCO2 64 H (38-50) mmHg VBG pO2 25 mmHg VBG HCO3 34 mmol/L VBG O2 Saturation < 60.0 % VBG Base Excess 5.7 mEq/L Sodium 140 (136-145) mmol/L Potassium 4.7 (3.5-5.1) mmol/L Chloride 102 (98-107) mmol/L Carbon Dioxide 33 H (21-32) mmol/L Anion Gap 5 (3-11) BUN 18 (6-23) mg/dl Creatinine 0.91 (0.6-1.4) mg/dl Est Cr Clr Drug Dosing Not Reportable eGFR 85.20 BUN/Creatinine Ratio 19.8 (10-20) Glucose 91 (70-99(Fasting)) mg/dl Calcium 8.8 (8.6-10.3) mg/dl Total Bilirubin 1.0 (0.2-1.0) mg/dl AST 23 (13-39) U/L ALT 17 (7-52) U/L Alkaline Phosphatase 62 (34-104) U/L Troponin I High Sens 11.0 (0-20) pg/ml B-Natriuretic Peptide 404 H (0-100) pg/ml Total Protein 7.0 (6.0-8.3) gm/dl Albumin 4.1 (3.4-5.0) gm/dl Globulin 2.9 (2.5-4.0) gm/dl Albumin/Globulin Ratio 1.4 (0.9-2) Procalcitonin < 0.02 (0-0.5) ng/ml Adenovirus (PCR) Not Detected (NotDetected) B. pertussis DNA (PCR) Not Detected (NotDetected) B.parapertussis DNA PCR Not Detected (NotDetected) C. pneumoniae DNA (PCR) Not Detected (NotDetected) Coronavirus OC43 (PCR) Not Detected (NotDetected) Coronavirus HKU1 (PCR) Not Detected (NotDetected) Coronavirus 229E (PCR) Not Detected (NotDetected) SARS-CoV-2 (PCR) NEGATIVE Not Detected (Negative) Coronavirus NL63 (PCR) Not Detected (NotDetected) Human Metapneumovir PCR Not Detected (NotDetected) Influenza Type A (PCR) Negative Not Detected (Neg) Influenza Type B (PCR) Negative Not Detected (Neg) M. pneumoniae (PCR) Not Detected (NotDetected) Parainfluenza 1 (PCR) Not Detected (NotDetected) Parainfluenza 2 (PCR) Not Detected (NotDetected) Parainfluenza 3 (PCR) Not Detected (NotDetected) Parainfluenza 4 (PCR) Not Detected (NotDetected) RSV (RT-PCR) Negative (Neg) RSV (PCR) Not Detected (NotDetected) Entero/Rhino (PCR) Not Detected (NotDetected) Administered Medications Discontinued Medications Albuterol (Albut/Ipratrop 3mg/0.5mg Neb 3 Ml Vial) 3 ml NEB NOW STA; Protocol Stop: 12/10/23 17:17 Last Admin: 12/10/23 17:27 Dose: 3 ml Documented By: JERE Azithromycin (Azithromycin 250 Mg Tab) 500 mg PO NOW ONE Stop: 12/10/23 18:48 Last Admin: 12/10/23 18:59 Dose: 500 mg Documented By: JERE Dexamethasone Sodium Phosphate (DexamethasonePf 10 Mg/Ml Vial) 10 mg IV NOW ONE Stop: 12/10/23 17:17 Last Admin: 12/10/23 17:27 Dose: 10 mg Documented By: JERE Furosemide (Furosemide 40 Mg/4 Ml Vial) 40 mg IV ONE ONE Stop: 12/10/23 18:48 Last Admin: 12/10/23 18:59 Dose: 40 mg Documented By: JERE Guaifenesin (Guaifenesin 600 Mg Tabcr) 1,200 mg PO NOW STA Stop: 12/10/23 17:17 Last Admin: 12/10/23 17:27 Dose: 1,200 mg Documented By: JERE Ceftriaxone Sodium (Rocephin) 2,000 mg in 50 mls @ 100 mls/hr IV NOW STA Stop: 12/10/23 19:16 Last Infusion: 12/10/23 19:39 Dose: Infused Documented By: Admin: 12/10/23 18:59 Dose: 100 mls/hr Documented By: JERE Imaging Data Radiologist's Impression: Chest X-Ray 12/10/23 16:17 XR chest 1V not portable CLINICAL HISTORY: Chest pain, nonspecific COMPARISON STUDY: Chest radiograph January 12, 2023. Chest CT September 23, 2023. FINDINGS: Old deformity of the distal right clavicle is unchanged. There is no pneumothorax or pleural effusion. Moderate cardiomegaly is noted. There is pulmonary vascular congestion. Linear bibasilar densities favor atelectasis. IMPRESSION: 1. Cardiomegaly with pulmonary vascular congestion. 2. Bibasilar densities suggestive of atelectasis. An infectious process is considered less likely. Radiographic follow-up to ensure resolution is recommended. ACT 112: Negative or not required by law. Electronically signed by: Ludin Whitfield M.D. 12/10/2023 4:56 PM Discharge Plan Visit Data Chief Complaint: Shortness of Breath/Dyspnea Stated Complaint: SOB ED Provider: Robin Caceres Discharge Problem: Acute on chronic respiratory failure with hypoxia and hypercapnia, COPD (chronic obstructive pulmonary disease), Acute on chronic heart failure with preserved ejection fraction Forms Stand Alone Forms: [facility] [place] Dx Prescriptions Prescriptions: No Action albuterol sulfate [Ventolin HFA] 90 mcg/actuation HFA aerosol inhaler 2 puff inhalation Q6H PRN (Reason: shortness of breath or wheezing) Qty: 6.7 11RF warfarin 5 mg tablet 5 mg PO .COMPLEX Qty: 90 3RF Protocol: Dose Management Condition: Friday (Week One) Dose/Route: 2.5 mg Instruction: 0.5 x 5 mg tablets Condition: Friday Dose/Route: 2.5 mg Instruction: 0.5 x 5 mg tablets Condition: Friday Dose/Route: 7.5 mg Instruction: 1.5 x 5 mg tablets Condition: Friday Dose/Route: 2.5 mg Instruction: 0.5 x 5 mg tablets Condition: Dose/Route: 5 mg Instruction: 1 x 5 mg tablet Condition: Friday Dose/Route: 2.5 mg Instruction: 0.5 x 5 mg tablets Condition: Friday Dose/Route: 5 mg Instruction: 1 x 5 mg tablet Condition: Friday (Week Two) Dose/Route: 2.5 mg Instruction: 0.5 x 5 mg tablets Condition: Friday Dose/Route: 2.5 mg Instruction: 0.5 x 5 mg tablets Condition: Friday Dose/Route: 5 mg Instruction: 1 x 5 mg tablet Condition: Friday Dose/Route: 2.5 mg Instruction: 0.5 x 5 mg tablets Condition: Dose/Route: 5 mg Instruction: 1 x 5 mg tablet Condition: Friday Dose/Route: 2.5 mg Instruction: 0.5 x 5 mg tablets Condition: Friday Dose/Route: 5 mg Instruction: 1 x 5 mg tablet Protocol Text: Adjustment Start Date: Friday11/18/23 INR Value: 1.8 INR Date: 11/18/23 Recheck Date: 12/02/23 Rx Instructions: 5 mg PO Or as directed to achieve an INR of 2-3.; TTS - 5mg, MWFS - 2.5mg ezetimibe [Zetia] 10 mg tablet 10 mg PO DAILY Qty: 90 3RF furosemide [Lasix] 40 mg tablet 40 mg PO .COMPLEX Qty: 120 3RF Rx Instructions: 40 mg PO take 1 tablet daily and can take one additional 40 mg tablet as needed for swelling.; Incruse Ellipta 62.5 mcg/actuation blister with device 1 inh inhalation DAILY Rx Instructions: INHALE 1 PUFF INTO THE LUNGS DAILY budesonide-formoterol [Symbicort] 160-4.5 mcg/actuation HFA aerosol inhaler 2 inh inhalation BID Rx Instructions: INHALE 2 PUFFS by mouth TWICE DAILY and RINSE MOUTH AFTER USE. Referrals Referrals: Tej Salazar MD [Primary Care Provider] - Discharge Problem: COPD (chronic obstructive pulmonary disease) Qualifiers: COPD type: COPD with acute exacerbation Qualified Code(s): J44.1 - Chronic obstructive pulmonary disease with (acute) exacerbation
[2023-12-10] MEDS: ALBUT/IPRATROP 3MG/0.5MG NEB 3 ML VIAL NEB STA (17:27)
[2023-12-10] MEDS: dexAMETHasone**PF** 10 MG/ML VIAL IV ONE (17:27)
[2023-12-10] MEDS: guaiFENesin 600 MG TABCR PO STA (17:27)
[2023-12-10 18:13] LABS: Base Excess VBG 5.7 mEq/L; HCO3 VBG 34 mmol/L; Oxygen Saturation VBG < 60.0 %; PCO2 VBG 64 mmHg (38-50); PO2 VBG 25 mmHg; pH VBG 7.33 (7.36-7.41)
[2023-12-10] MEDS: FUROSEMIDE 40 MG/4 ML VIAL IV ONE (18:59)
[2023-12-10] MEDS: AZITHROMYCIN 250 MG TAB PO ONE (18:59)
[2023-12-10] MEDS: cefTRIAXone SODIUM 2,000 MG/50 ML BAG IV STA (18:59)
--- NOTE | 2023-12-10 19:22 | History & Physical Report ---
Date of Service December 10, 2023 Assessment & Plan (1) Acute on chronic respiratory failure with hypoxia and hypercapnia: Plan: Suspected combination of COPD exacerbation and acute on chronic diastolic heart failure (suspect the later contributing more given lack of current wheezing on exam) Normal WBC and procalcitonin negative therefore will d/c typical pneumonia coverage unless sputum culture positive Cepheid PCR negative Limited TTE to assess for pericardial effusion - possible effusion seen on POCUS US US venous doppler right leg to assess for DVT given larger than left, consider CT for PE if positive although PE less likely given warfarin use (2) Acute on chronic heart failure with preserved ejection fraction: Plan: Lasix 40mg IV BID Strict I&Os Daily weights Low Na diet (3) COPD exacerbation: Plan: Dexamethasone 10mg IV given in ER, continue Solu-medrol 40mg IV BID Formoterol/budesonide NEBs BID Duonebs q4hwa (4) Finger joint swelling: Plan: Suspected to be gout by PCP and referred to orthopedics Appears to have associated digital myxoid cyst/pseudocyst on exam Monitor for improvement with current steroids Consider addition of colchicine Follow up with orthopedics/dermatology outpatient to consider cryotherapy (5) Afib: Plan: Rate controlled without medications Continue anticoagulation with warfarin (hold todays dose due to elevated INR) (6) Secondary pulmonary arterial hypertension: (7) Severe muscle deconditioning: (8) ETOH abuse: Plan VTE Prophyalxis - warfarin Diet - Low sodium, heart healthy Disposition - admit to med/tele Admission and Anticipated Discharge Date Admission Date: December 10, 2023 History of Present Illness Chief Complaint: Shortness of breath Primary Care Provider: Tej Salazar MD Robert Luna is an 78 year old male with COPD and severe airflow obstruction who presents to the ER with shortness of breath significantly worse over the last 2 weeks. He reports chronically worsening shortness of breath on exertion for years with his COPD. He reports not needing oxygen at baseline but has some for exertion although his pulmonology note mentions noncompliance with supplemental oxygen therapy. Associated cough but no worse than usual. No chest pain. Mainly exertion while trying to get under the bed covers is when he feels the shortness of breath. Associated increased sleeping. He also notes abdominal bloating which he feels is effecting his bleeding but denies abdominal pain, change in bowels, nausea, vomiting, hematochezia or melena. He notes his rescue albuterol inhaler does help slightly with his shortness of breath. He was recently treated with prednisone for suspected gout arthritis of his hands although he cannot remember if the prednisone helped his breathing at all. He denies any recent change in diet. Allergies Allergy/AdvReac Type Severity Reaction Status Date / Time No Known Allergies Allergy Verified 12/10/23 18:04 Home Medications Medication Instructions Recorded Confirmed Type albuterol sulfate 90 mcg/actuation 2 puff inhalation Q6H PRN 01/30/23 12/10/23 Rx aerosol inhaler (Ventolin HFA) shortness of breath or wheezing #6.7 grams warfarin 5 mg tablet 5 mg PO .COMPLEX #90 tabs 09/23/23 12/10/23 Rx ezetimibe 10 mg tablet (Zetia) 10 mg PO DAILY #90 tabs 11/03/23 12/10/23 Rx furosemide 40 mg tablet (Lasix) 40 mg PO .COMPLEX #120 tabs 11/03/23 12/10/23 Rx budesonide-formoterol HFA 160 2 inh inhalation BID 12/10/23 12/10/23 History mcg-4.5 mcg/actuation aerosol inhaler (Symbicort) umeclidinium 62.5 mcg/actuation 1 inh inhalation DAILY 12/10/23 12/10/23 History blister powder for inhalation (Incruse Ellipta) Past Med/Surg History Problem List (Updated 12/10/23 @ 22:42 by Robin Caceres MD) Acute on chronic heart failure with preserved ejection fraction (Acute) COPD exacerbation Acute on chronic respiratory failure with hypoxia and hypercapnia (Acute) Finger joint swelling Secondary pulmonary arterial hypertension Chronic hypoxemic respiratory failure Lower extremity edema Severe muscle deconditioning COPD with chronic bronchitis Afib COVID Bloating Cirrhosis Renal lesion Abdominal aortic aneurysm (AAA) Hyperglycemia Proximal muscle weakness Joint stiffness of both shoulders Sciatica of right side Cough Polyneuropathy Peripheral arterial disease Neuropathy Benign prostatic hyperplasia with urinary obstruction Gait abnormality Spinal stenosis (Acute) Elevated PSA (Acute) residential (current) use of anticoagulants Gallstones with biliary obstruction CKD (chronic kidney disease) stage 2, GFR 60-89 ml/min Pulmonary hypertension ETOH abuse Hyperlipidemia Hypertension Chronic diastolic heart failure Elevated bilirubin (Acute) COPD (chronic obstructive pulmonary disease) (Chronic) Peripheral edema (Acute) Medical History PMR (polymyalgia rheumatica) Elevated liver enzymes Sebaceous cyst Cellulitis of right foot CHF (congestive heart failure) Surgical History Pilonidal cyst Hx of cataract surgery Family History Father Coronary heart disease Prostate cancer Myocardial infarction Uncle Prostate cancer Mother Colon cancer Other Pancreatic cancer Denies family history of Ovarian cancer Breast cancer Social History Smoking Status: Never smoker Second Hand Exposure: No; Do You Dip or Chew Tobacco: No; Hx Alcohol Use: Yes Alcohol type: beer Alcohol Intake Frequency: 2-3 x/Week Hx Substance Use: No Preferred Language: [place] Communication Ability: Effective Visual Impairment: No Limitations Hearing Ability: Normal Automatic 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 Mechanic Required: No Beliefs That Will Affect Care: None marital status: Current Living Situation: Spouse current occupational status: retired Other Information That Helps Us Care for You: No Feels Safe at Home: Yes Diet: regular Dental Care, Regularly: No Physical Activity Frequency: 3-4 Times per Week Seatbelt Use: always Sunscreen Use: No Assistive Devices: Cane, Denture - Upper, Denture - Lower, Glasses and Oxygen - Continuous Review of Systems Review of Systems: All systems reviewed & are unremarkable except as noted in HPI & below Physical Exam Constitutional: well developed and + acute distress; + not well nourished Eyes: + anicteric sclerae; normal pupil size ENMT: external ear and nose normal, oropharynx normal Respiratory: + labored breathing, + uses accessory mu scles, able to speak in complete sentences and + prolonged expiratory phase; no audible wheezes and no stridor Auscultation: + crackles (coarse throughout) and + rhonchi; breath sounds present, no diminished lung sounds and no wheezes Cardiovascular: Rate/Rhythm: regular rate and + irregularly irregular Heart Sounds: no murmur Extremities: normal capillary refill, + calf tenderness (right) and + pedal edema (2+ b/l equal, right calf > left) Gastrointestinal (Abdomen): normal bowel sounds, soft, nontender, no hepatosplenomegaly Musculoskeletal: Translucent cyst x2 on right third digit with swelling of joint but no pain or erythema DIPJ arthritic changes b/l Neurologic: moves all extremities and awake; not confused Psychiatric: A+Ox3, euthymic affect Results & Data Results & Data Vital Signs (Past 12 Hours) Vital Signs Temp Pulse Resp BP Pulse Ox O2 Del Method O2 Flow Rate 12/10/23 17:48 96 Room Air, Nasal Cannula 3 12/10/23 16:13 36.6 C 72 20 121/74 95 Nasal Cannula 3 Laboratory Results Abnormal lab results 12/10/23 12/10/23 Range/Units 16:20 18:04 MCHC 30.7 L (32.0-36.0) g/dL RDW Std Deviation 52.1 H (36.4-46.3) fL RDW Coeff of [place] 14.6 H (11.5-14.5) % Plt Count 126 L (130-400) K/uL Lymph # (Auto) 0.65 L (1.20-3.40) K/uL [place] # (Auto) 0.76 H (0.11-0.59) K/uL PT 36.6 H (9.0-12.0) Seconds INR 3.8 H (0.9-1.1) APTT 43 H (21-31) Seconds VBG pH 7.33 L (7.36-7.41) VBG pCO2 64 H (38-50) mmHg Carbon Dioxide 33 H (21-32) mmol/L B-Natriuretic Peptide 404 H (0-100) pg/ml Diagnostic Findings XR chest 1V not portable CLINICAL HISTORY: Chest pain, nonspecific COMPARISON STUDY: Chest radiograph January 12, 2023. Chest CT September 23, 2023. FINDINGS: Old deformity of the distal right clavicle is unchanged. There is no pneumothorax or pleural effusion. Moderate cardiomegaly is noted. There is pulmonary vascular congestion. Linear bibasilar densities favor atelectasis. IMPRESSION: 1. Cardiomegaly with pulmonary vascular congestion. 2. Bibasilar densities suggestive of atelectasis. An infectious process is considered less likely. Radiographic follow-up to ensure resolution is recommended. Medications Administered ER medications given: DuoNeb 3 mL neb Guaifenesin 1200 mg p.o. Dexamethasone 10 mg IV Furosemide 40 mg IV Ceftriaxone 2000 mg IV Azithromycin 500 mg p.o. ECG Rate (beats per minute): 75 Rhythm: atrial fibrillation (Competing junctional pacemaker) Findings: + other (Poor R wave progression) and + LAFB Comparison ECG Date: from (January 12, 2023) Change: no significant change Code Status & VTE Plan Code Status Full VTE Prophylaxis Plan VTE Prophylaxis will be ordered: Yes PG Care Time/CCT Total # of Minutes Spent Total Time Spent with Patient: Total time spent is greater than 50% in coordination of care (as documented) at patient's floor/unit and/or counseling patient: Coding Level of Care Code 11982 INT INP/OBS CARE 3/75MIN Diagnoses Acute on chronic respiratory failure with hypoxia and hypercapnia J96.21; J96.22 Acute on chronic heart failure with preserved ejection fraction I50.33 COPD exacerbation J44.1 Swelling of finger joint, unspecified laterality M25.449 Laterality: unspecified laterality Permanent atrial fibrillation I48.21 Atrial fibrillation type: permanent Secondary pulmonary arterial hypertension I27.21 Severe muscle deconditioning R29.898 ETOH abuse F10.10 (4) Finger joint swelling Laterality: unspecified laterality Qualified Code(s): M25.449 - Effusion, unspecified hand (5) Afib Atrial fibrillation type: permanent Qualified Code(s): I48.21 - Permanent atrial fibrillation
[2023-12-10 21:52] LABS: Adenovirus PCR Not Detected (NotDetected); Bordetella parapertussis PCR Not Detected (NotDetected); Bordetella pertussis PCR Not Detected (NotDetected); Chlamydia pneumoniae PCR Not Detected (NotDetected); Coronavirus 229E PCR Not Detected (NotDetected); Coronavirus CoV-2 (COVID19)PCR Not Detected (NotDetected); Coronavirus HKU1 PCR Not Detected (NotDetected); Coronavirus NL63 PCR Not Detected (NotDetected); Coronavirus OC43PCR Not Detected (NotDetected); Human Metapneumovirus PCR Not Detected (NotDetected); Influenza A PCR Not Detected (NotDetected); Influenza B PCR Not Detected (NotDetected); Mycoplasma pneumoniae PCR Not Detected (NotDetected); Parainfluenza Virus 1 PCR Not Detected (NotDetected); Parainfluenza Virus 2 PCR Not Detected (NotDetected); Parainfluenza Virus 3 PCR Not Detected (NotDetected); Parainfluenza Virus 4 PCR Not Detected (NotDetected); Respiratory Syncytial VirusPCR Not Detected (NotDetected); Rhinovirus/Enterovirus PCR Not Detected (NotDetected)
[2023-12-10] MEDS ORDERED: ACETAMINOPHEN 325 MG TAB PO PRN (23:30)
[2023-12-10] MEDS: ALBUT/IPRATROP 3MG/0.5MG NEB 3 ML VIAL NEB SCH (23:35)
[2023-12-10] MEDS: BUDESONIDE 0.5 MG/2 ML VIAL (PULMICORT) NEB SCH (23:43)
[2023-12-10] MEDS: FORMOTEROL 20 MCG/2 ML VIAL NEB SCH (23:43)
[2023-12-11 06:24] LABS: Basophils # (auto) 0.01 K/uL (0.00-0.20); Basophils % (auto) 0.2 %; Hematocrit (blood only) 42.8 % (42.0-52.0); Hemoglobin 13.7 g/dl (14.0-18.0); Immature Granulocytes # (auto) 0.02 K/uL (0.01-0.20); Immature Granulocytes % (auto) 0.5 %; Lymphocytes # (auto) 0.38 K/uL (1.20-3.40); Mean Corpuscular Hemoglobin 30.4 pg (25.0-34.0); Mean Corpuscular Volume 95.1 fL (80.0-100.0); Mean Platelet Volume 10.1 fL (9.4-12.4); Monocytes # (auto) 0.29 K/uL (0.11-0.59); Monocytes % (auto) 6.8 %; Neutrophils # (auto) 3.54 K/uL (1.40-6.50); Neutrophils % (auto) 83.5 %; Platelet Count 125 K/uL (130-400); RDW Coefficient of Variation 14.3 % (11.5-14.5); RDW Standard Deviation 50.3 fL (36.4-46.3); White Blood Count 4.24 K/ul (4.8-10.8)
[2023-12-11 06:41] LABS: BUN Creatinine Ratio 21.3 (10-20); Calcium 8.5 mg/dl (8.6-10.3); Creatinine Clr Calc Pharmacy 86.9 ml/min; Magnesium 2.1 mg/dl (1.7-2.4); Potassium 4.4 mmol/L (3.5-5.1)
[2023-12-11 06:57] LABS: INR 3.4 (0.9-1.1); Prothrombin Time 32.9 Seconds (9.0-12.0)
--- NOTE | 2023-12-11 07:59 | Hospitalist Progress Note ---
Date of Service December 11, 2023 Assessment & Plan (1) Acute on chronic heart failure with preserved ejection fraction: Plan: slow onset over weeks, orthopnea, non productive cough, marked RICHTER, leg swelling Last Echo 09/16 wtih EF 50% and moderate MR Lasix 40mg IV given x 2 doses with little output will increase to 80 mg bid Troponin negative x 2 (2) Acute on chronic respiratory failure with hypoxia and hypercapnia: Plan: Suspected combination of COPD exacerbation and acute on chronic diastolic heart failure Dexamethasone 10mg IV given in ER, continue Solu-medrol 40mg IV BID Formoterol/budesonide NEBs BID Duonebs q4hwa Cepheid PCR negative, not suspecting infection/pneumonia Limited TTE to assess for pericardial effusion - possible effusion seen on POCUS US US venous doppler right leg to assess for DVT given larger than left, is with therapeutic INR on presentation warfarin use history of right Iliac stenting (3) Afib: Plan: Permanent Atrial fibrillation Rate controlled without medications Continue anticoagulation with warfarin (held dose due to elevated INR) (4) Finger joint swelling: Plan: Suspected to be gout by PCP and referred to orthopedics Appears to have associated digital myxoid cyst/pseudocyst on exam Monitor for improvement with current steroids Consider addition of colchicine Follow up with orthopedics/dermatology outpatient to consider cryotherapy (5) Severe muscle deconditioning: Plan: PT/OT eval (6) ETOH abuse: Plan: monitor for signs of withdrawal Plan VTE Prophyalxis - warfarin Diet - Low sodium, heart healthy Admission and Anticipated Discharge Date Admission Date: December 10, 2023 Results & Data Results & Data Vital Signs (Past 12 Hours) Vital Signs Temp Pulse Pulse Resp BP BP Pulse Ox 12/11/23 07:27 76 18 93 12/11/23 07:00 79 12/11/23 03:56 97.7 F 85 18 124/76 91 12/11/23 00:13 12/11/23 00:13 97.5 F L 82 18 148/84 H 94 12/10/23 23:43 89 16 94 12/10/23 23:40 78 12/10/23 23:30 97.5 F L 82 18 148/84 H 94 12/10/23 22:00 85 20 93 12/10/23 20:31 86 20 152/108 H 92 O2 Del Method O2 Flow Rate 12/11/23 07:27 Nasal Cannula 3 12/11/23 07:00 12/11/23 03:56 Nasal Cannula 3 12/11/23 00:13 Nasal Cannula 3 12/11/23 00:13 Nasal Cannula 3 12/10/23 23:43 Nasal Cannula 3 12/10/23 23:40 12/10/23 23:30 Nasal Cannula 3 12/10/23 22:00 Nasal Cannula 2 12/10/23 20:31 Nasal Cannula 2 Laboratory Results review cbc review chemistry PG Care Time/CCT Total # of Minutes Spent Total Time Spent with Patient: Total time spent is greater than 50% in coordination of care (as documented) at patient's floor/unit and/or counseling patient: Coding Level of Care Code 48950 SUB INP/OBS CARE 3/50MIN Diagnoses Acute on chronic heart failure with preserved ejection fraction I50.33 Acute on chronic respiratory failure with hypoxia and hypercapnia J96.21; J96.22 Permanent atrial fibrillation I48.21 Atrial fibrillation type: permanent Swelling of finger joint, unspecified laterality M25.449 Laterality: unspecified laterality Severe muscle deconditioning R29.898 ETOH abuse F10.10 (3) Afib Atrial fibrillation type: permanent Qualified Code(s): I48.21 - Permanent atrial fibrillation (4) Finger joint swelling Laterality: unspecified laterality Qualified Code(s): M25.449 - Effusion, unspecified hand
[2023-12-11] MEDS: SIMETHICONE 80 MG CHEW PO SCH (08:15)
[2023-12-11] MEDS: FUROSEMIDE 40 MG/4 ML VIAL IV SCH ×2 (08:15→16:53)
[2023-12-11] MEDS: EZETIMIBE 10 MG TAB PO SCH (08:15)
[2023-12-11] MEDS: UMECLIDINIUM BROMIDE 62.5MCG/BLISTER 7 PUFFS/INHALER INH SCH (08:16)
[2023-12-11] MEDS ORDERED: methylPREDNISolone 125 MG/2 ML VIAL IV SCH (09:00)
--- NOTE | 2023-12-11 09:18 | XCELERA ---
[id number]
[2023-12-11] MEDS: methylPREDNISolone 40 MG in SYRINGE 0 ML IV SCH (10:11)
[2023-12-11] MEDS: WARFARIN SOD 5 MG TAB PO SCH (16:51)
[2023-12-11] MEDS: AZITHROMYCIN 250 MG TAB PO SCH (18:19)
[2023-12-11] MEDS: POTASSIUM CHLORIDE CRTAB 20 MEQ TABCR PO SCH (20:15)
[2023-12-12 06:24] LABS: INR 3.2 (0.9-1.1); Prothrombin Time 30.9 Seconds (9.0-12.0)
[2023-12-12 06:34] LABS: BUN Creatinine Ratio 30.1 (10-20); Calcium 8.7 mg/dl (8.6-10.3); Creatinine Clr Calc Pharmacy 73.7 ml/min; Magnesium 2.3 mg/dl (1.7-2.4); Potassium 4.3 mmol/L (3.5-5.1)
[2023-12-12] MEDS: WARFARIN SOD 2.5 MG TAB PO SCH (15:56)
--- NOTE | 2023-12-12 15:58 | Hospitalist Progress Note ---
Date of Service December 12, 2023 Assessment & Plan (1) Acute on chronic heart failure with preserved ejection fraction: Plan: slow onset over weeks, orthopnea, non productive cough, marked RICHTER, leg swelling Last Echo 09/16 wtih EF 50% and moderate MR Lasix 40mg IV given x 2 doses with little output. Increased to 80 mg IV twice daily. Today BUN starting to go up. Will discontinue IV Lasix. May consider starting p.o. Lasix tomorrow. Troponin negative x 2 (2) Acute on chronic respiratory failure with hypoxia and hypercapnia: Plan: Suspected combination of COPD exacerbation and acute on chronic diastolic heart failure Dexamethasone 10mg IV given in ER, on Solu-medrol 40mg IV BID. Will discontinue Solu-Medrol today. No wheezing. May consider starting p.o. prednisone Formoterol/budesonide NEBs BID Duonebs q4hwa Cepheid PCR negative, not suspecting infection/pneumonia Limited TTE to assess for pericardial effusion - possible effusion seen on POCUS US US venous doppler right leg to assess for DVT given larger than left, is with therapeutic INR on presentation warfarin use history of right Iliac stenting (3) Afib: Plan: Permanent Atrial fibrillation Rate controlled without medications Continue anticoagulation with warfarin (held dose due to elevated INR) (4) Finger joint swelling: Plan: Suspected to be gout by PCP and referred to orthopedics Appears to have associated digital myxoid cyst/pseudocyst on exam Monitor for improvement with current steroids Consider addition of colchicine Follow up with orthopedics/dermatology outpatient to consider cryotherapy (5) Severe muscle deconditioning: Plan: PT/OT eval (6) ETOH abuse: Plan: monitor for signs of withdrawal Plan VTE Prophyalxis - warfarin Diet - Low sodium, heart healthy Admission and Anticipated Discharge Date Admission Date: December 10, 2023 Subjective Patient says that he is feeling better. His leg swelling is improved. His breathing has improved. Review of Systems Review of Systems: All systems reviewed & are unremarkable except as noted in Subjective Physical Exam Physical Exam: General: Awake, conversant Heart: S1, S2/regular rate and rhythm, no murmur rubs or gallops Lungs: Clear to auscultation bilaterally. Normal effort Abdomen: Soft/nontender/nondistended. No hepatosplenomegaly Extremities: No clubbing/cyanosis. 1-2+ pitting bilateral edema (he says that his legs look much better than when he first came to the hospital) Behavior: Appropriate, cooperative Results & Data Results & Data Vital Signs (Past 12 Hours) Vital Signs Temp Pulse Pulse Resp BP Pulse Ox O2 Del Method 12/12/23 15:17 36.5 C 85 18 130/76 93 Nasal Cannula 12/12/23 14:03 107 H 12/12/23 11:54 36.5 C 96 H 16 142/85 H 94 Room Air 12/12/23 08:00 Nasal Cannula 12/12/23 07:47 36.5 C 83 20 114/65 91 Nasal Cannula 12/12/23 07:23 88 12/12/23 06:58 73 16 94 Nasal Cannula O2 Flow Rate 12/12/23 15:17 3 12/12/23 14:03 12/12/23 11:54 12/12/23 08:00 3 12/12/23 07:47 3 12/12/23 07:23 12/12/23 06:58 3 Laboratory Results Abnormal lab results 12/12/23 Range/Units 05:20 PT 30.9 H (9.0-12.0) Seconds INR 3.2 H (0.9-1.1) Carbon Dioxide 34 H (21-32) mmol/L BUN 28 H (6-23) mg/dl BUN/Creatinine Ratio 30.1 H (10-20) Glucose 127 H (70-99(Fasting)) mg/dl PG Care Time/CCT Total # of Minutes Spent Total Time Spent with Patient: Total time spent is greater than 50% in coordination of care (as documented) at patient's floor/unit and/or counseling patient: Coding Level of Care Code 55305 SUB INP/OBS CARE 2/35MIN Diagnoses Acute on chronic heart failure with preserved ejection fraction I50.33 Acute on chronic respiratory failure with hypoxia and hypercapnia J96.21; J96.22 Permanent atrial fibrillation I48.21 Atrial fibrillation type: permanent Swelling of finger joint, unspecified laterality M25.449 Laterality: unspecified laterality Severe muscle deconditioning R29.898 ETOH abuse F10.10 (3) Afib Atrial fibrillation type: permanent Qualified Code(s): I48.21 - Permanent atrial fibrillation (4) Finger joint swelling Laterality: unspecified laterality Qualified Code(s): M25.449 - Effusion, unspecified hand
[2023-12-13 05:14] LABS: Hematocrit (blood only) 42.8 % (42.0-52.0); Hemoglobin 13.8 g/dl (14.0-18.0); Mean Corpuscular Hgb Conc 32.2 g/dL (32.0-36.0); Mean Platelet Volume 9.9 fL (9.4-12.4); Platelet Count 158 K/uL (130-400); RDW Coefficient of Variation 14.4 % (11.5-14.5); RDW Standard Deviation 49.9 fL (36.4-46.3); White Blood Count 12.04 K/ul (4.8-10.8)
[2023-12-13 05:33] LABS: BUN Creatinine Ratio 32.1 (10-20); Calcium 8.5 mg/dl (8.6-10.3); Creatinine Clr Calc Pharmacy 64.7 ml/min; Magnesium 2.3 mg/dl (1.7-2.4); Potassium 4.5 mmol/L (3.5-5.1)
[2023-12-13 05:42] LABS: INR 3.4 (0.9-1.1); Prothrombin Time 33.5 Seconds (9.0-12.0)
[2023-12-13] MEDS: ALBUT/IPRATROP 3MG/0.5MG NEB 3 ML VIAL NEB PRN (07:25)
[2023-12-13] MEDS: SODIUM CHLORIDE 0.9% 500 ML IV ONE (09:58)
[2023-12-13] MEDS: METOPROLOL TARTRATE 1 MG/ML VIAL IV STA (10:43)
--- NOTE | 2023-12-13 14:10 | Hospitalist Progress Note ---
Date of Service December 13, 2023 Assessment & Plan (1) Acute on chronic heart failure with preserved ejection fraction: Plan: slow onset over weeks, orthopnea, non productive cough, marked RICHTER, leg swelling Last Echo 09/16 wtih EF 50% and moderate MR Lasix 40mg IV given x 2 doses with little output. Increased to 80 mg IV twice daily. Held IV Lasix yesterday p.m. Today BUN and creatinine continue to go up. Continue to hold Lasix. Patient appears to be slightly over diuresed Was given 500 cc of fluid bolus Monitor BMP Troponin negative x 2 (2) Acute on chronic respiratory failure with hypoxia and hypercapnia: Plan: Suspected combination of COPD exacerbation and acute on chronic diastolic heart failure Dexamethasone 10mg IV given in ER, on Solu-medrol 40mg IV BID. Discontinued Solu-Medrol on 12/11. No wheezing. Formoterol/budesonide NEBs BID Duonebs q4hwa Cepheid PCR negative, not suspecting infection/pneumonia Limited TTE to assess for pericardial effusion - possible effusion seen on POCUS US history of right Iliac stenting (3) Afib: Plan: Permanent Atrial fibrillation Rate controlled without medications at home Today was rate and controlled Was given a dose of IV Lopressor 5 mg with good response Start Lopressor 12.5 mg p.o. every morning Continue anticoagulation with warfarin (held dose due to elevated INR) (4) Finger joint swelling: Plan: Suspected to be gout by PCP and referred to orthopedics Appears to have associated digital myxoid cyst/pseudocyst on exam Improved with steroids Follow up with orthopedics/dermatology outpatient to consider cryotherapy (5) Severe muscle deconditioning: Plan: PT/OT eval (6) ETOH abuse: Plan: monitor for signs of withdrawal Plan VTE Prophyalxis - warfarin Diet - Low sodium, heart healthy Admission and Anticipated Discharge Date Admission Date: December 10, 2023 Subjective Patient was seen and examined at 9:55 AM. I was informed by the nurse he was tachycardic with low blood pressure and was feeling dizzy. Went to the bedside immediately. Patient was given 500 cc bolus of normal saline with some improvement. It was followed by 5 mg of IV Lopressor. Tachycardia improved and blood pressure improved as well in response to metoprolol Review of Systems Review of Systems: All systems reviewed & are unremarkable except as noted in Subjective Physical Exam Physical Exam: General: Awake, conversant Heart: S1, S2/regular rate and rhythm, no murmur rubs or gallops Lungs: Clear to auscultation bilaterally. Normal effort Abdomen: Soft/nontender/nondistended. No hepatosplenomegaly Extremities: No clubbing/cyanosis. 1-2+ pitting bilateral edema (he says that his legs look much better than when he first came to the hospital) Behavior: Appropriate, cooperative Results & Data Results & Data Vital Signs (Past 12 Hours) Vital Signs Temp Pulse Pulse Resp BP BP BP 12/13/23 14:03 93 H 12/13/23 12:25 100 H 12/13/23 12:17 36.3 C L 121 H 20 95/61 L 12/13/23 11:23 36.4 C L 73 20 107/66 12/13/23 10:58 92 H 18 97/62 L 12/13/23 10:58 92 H 97/62 L 12/13/23 10:43 157 H 20 102/59 L 12/13/23 10:43 153 H 102/59 L 12/13/23 10:32 36.6 C 152 H 20 93/60 L 12/13/23 09:52 155 H 20 78/52 L 12/13/23 08:45 12/13/23 08:34 151 H 18 109/70 12/13/23 07:55 36.2 C L 79 16 109/72 12/13/23 07:27 78 18 12/13/23 07:12 89 12/13/23 04:00 36.7 C 90 18 109/62 Pulse Ox O2 Del Method O2 Flow Rate 12/13/23 14:03 12/13/23 12:25 94 Nasal Cannula 3 12/13/23 12:17 86 L Room Air 12/13/23 11:23 96 Nasal Cannula 3 12/13/23 10:58 97 Nasal Cannula 3 12/13/23 10:58 12/13/23 10:43 92 Nasal Cannula 3 12/13/23 10:43 12/13/23 10:32 92 Nasal Cannula 3 12/13/23 09:52 93 Nasal Cannula 3 12/13/23 08:45 Nasal Cannula 3 12/13/23 08:34 93 Nasal Cannula 3 12/13/23 07:55 97 Nebulizer 12/13/23 07:27 95 Nasal Cannula 4 12/13/23 07:12 12/13/23 04:00 94 Nasal Cannula 3 PG Care Time/CCT Total # of Minutes Spent Total Time Spent with Patient: Total time spent is greater than 50% in coordination of care (as documented) at patient's floor/unit and/or counseling patient: Coding Level of Care Code 17913 SUB INP/OBS CARE 2/35MIN Diagnoses Acute on chronic heart failure with preserved ejection fraction I50.33 Acute on chronic respiratory failure with hypoxia and hypercapnia J96.21; J96.22 Permanent atrial fibrillation I48.21 Atrial fibrillation type: permanent Swelling of finger joint, unspecified laterality M25.449 Laterality: unspecified laterality Severe muscle deconditioning R29.898 ETOH abuse F10.10 (3) Afib Atrial fibrillation type: permanent Qualified Code(s): I48.21 - Permanent atrial fibrillation (4) Finger joint swelling Laterality: unspecified laterality Qualified Code(s): M25.449 - Effusion, unspecified hand
[2023-12-13] MEDS: METOPROLOL TARTRATE 25 MG TAB PO SCH (15:26)
[2023-12-14 05:02] LABS: BUN Creatinine Ratio 32.7 (10-20); Calcium 8.2 mg/dl (8.6-10.3); Creatinine Clr Calc Pharmacy 63.5 ml/min; Magnesium 2.4 mg/dl (1.7-2.4); Potassium 4.5 mmol/L (3.5-5.1)
[2023-12-14 05:18] LABS: INR 2.8 (0.9-1.1); Prothrombin Time 27.9 Seconds (9.0-12.0)
[2023-12-14] MEDS: FUROSEMIDE 40 MG TAB PO SCH (10:12)
--- NOTE | 2023-12-14 13:13 | Hospitalist Progress Note ---
Date of Service December 14, 2023 Assessment & Plan (1) Acute on chronic heart failure with preserved ejection fraction: Plan: slow onset over weeks, orthopnea, non productive cough, marked RICHTER, leg swelling Last Echo 09/16 wtih EF 50% and moderate MR Lasix 40mg IV given x 2 doses with little output. Increased to 80 mg IV twice daily. Held IV Lasix since 12/11 p.m. Today BUN and creatinine continue to go up. Lasix was held yesterday as patient appeared to be slightly over diuresed. I started him on 40 mg of p.o. Lasix today Monitor BMP Troponin negative x 2 (2) Acute on chronic respiratory failure with hypoxia and hypercapnia: Plan: Suspected combination of COPD exacerbation and acute on chronic diastolic heart failure Dexamethasone 10mg IV given in ER, on Solu-medrol 40mg IV BID. Discontinued Solu-Medrol on 12/11. No wheezing. Formoterol/budesonide NEBs BID Duonebs q4hwa Cepheid PCR negative, not suspecting infection/pneumonia Limited TTE to assess for pericardial effusion -no pericardial effusion seen history of right Iliac stenting (3) Afib: Plan: Permanent Atrial fibrillation Rate controlled without medications at home Yesterday on 12/12 was rate uncontrolled Was given a dose of IV Lopressor 5 mg with good response on 12/12 Start Lopressor 12.5 mg p.o. every morning Continue anticoagulation with warfarin (held dose due to elevated INR) (4) Finger joint swelling: Plan: Suspected to be gout by PCP and referred to orthopedics Appears to have associated digital myxoid cyst/pseudocyst on exam Improved with steroids Follow up with orthopedics/dermatology outpatient to consider cryotherapy (5) Severe muscle deconditioning: Plan: PT/OT eval (6) ETOH abuse: Plan: monitor for signs of withdrawal Plan VTE Prophyalxis - warfarin Diet - Low sodium, heart healthy Likely discharge to home tomorrow 12/14. Will do a rest and exercise prior to discharge Admission and Anticipated Discharge Date Admission Date: December 10, 2023 Subjective Patient was seen and examined at 11 AM. He feels better today overall. Denies chest pain or shortness of breath. No episodes of tachycardia or dizziness. Review of Systems Review of Systems: All systems reviewed & are unremarkable except as noted in Subjective Physical Exam Physical Exam: General: Awake, conversant Heart: S1, S2/regular rate and rhythm, no murmur rubs or gallops Lungs: Clear to auscultation bilaterally. Normal effort Abdomen: Soft/nontender/nondistended. No hepatosplenomegaly Extremities: No clubbing/cyanosis. 1-2+ pitting bilateral edema (he says that his legs look much better than when he first came to the hospital) Behavior: Appropriate, cooperative Results & Data Results & Data Vital Signs (Past 12 Hours) Vital Signs Temp Pulse Pulse Resp BP BP Pulse Ox 12/14/23 10:58 36.7 C 69 18 101/56 L 95 12/14/23 08:17 36.4 C L 66 18 117/78 99 12/14/23 07:26 71 18 92 12/14/23 07:25 12/14/23 07:07 81 12/14/23 03:51 36.6 C 84 16 110/66 96 O2 Del Method O2 Flow Rate 12/14/23 10:58 Nasal Cannula 3 12/14/23 08:17 Nasal Cannula 3 12/14/23 07:26 Nasal Cannula 3 12/14/23 07:25 Nasal Cannula 3 12/14/23 07:07 12/14/23 03:51 Nasal Cannula 3 Laboratory Results Abnormal lab results 12/14/23 Range/Units 04:20 PT 27.9 H (9.0-12.0) Seconds INR 2.8 H (0.9-1.1) Carbon Dioxide 37 H (21-32) mmol/L Anion Gap 2 L (3-11) BUN 35 H (6-23) mg/dl BUN/Creatinine Ratio 32.7 H (10-20) Calcium 8.2 L (8.6-10.3) mg/dl PG Care Time/CCT Total # of Minutes Spent Total Time Spent with Patient: Total time spent is greater than 50% in coordination of care (as documented) at patient's floor/unit and/or counseling patient: Coding Level of Care Code 87561 SUB INP/OBS CARE 2/35MIN Diagnoses Acute on chronic heart failure with preserved ejection fraction I50.33 Acute on chronic respiratory failure with hypoxia and hypercapnia J96.21; J96.22 Permanent atrial fibrillation I48.21 Atrial fibrillation type: permanent Swelling of finger joint, unspecified laterality M25.449 Laterality: unspecified laterality Severe muscle deconditioning R29.898 ETOH abuse F10.10 (3) Afib Atrial fibrillation type: permanent Qualified Code(s): I48.21 - Permanent atrial fibrillation (4) Finger joint swelling Laterality: unspecified laterality Qualified Code(s): M25.449 - Effusion, unspecified hand
[2023-12-15 06:31] LABS: Hematocrit (blood only) 43.5 % (42.0-52.0); Hemoglobin 14.2 g/dl (14.0-18.0); Mean Corpuscular Hemoglobin 30.1 pg (25.0-34.0); Mean Corpuscular Hgb Conc 32.6 g/dL (32.0-36.0); Mean Corpuscular Volume 92.4 fL (80.0-100.0); Mean Platelet Volume 9.4 fL (9.4-12.4); Platelet Count 145 K/uL (130-400); RDW Standard Deviation 47.6 fL (36.4-46.3); Red Blood Count 4.71 M/uL (4.70-6.10); White Blood Count 6.91 K/ul (4.8-10.8)
[2023-12-15 06:56] LABS: BUN Creatinine Ratio 30.3 (10-20); Creatinine Clr Calc Pharmacy 75.7 ml/min; Potassium 4.2 mmol/L (3.5-5.1)
[2023-12-15 07:10] LABS: Prothrombin Time 20.5 Seconds (9.0-12.0)
--- NOTE | 2023-12-15 13:51 | Hospitalist Progress Note ---
Date of Service December 15, 2023 Assessment & Plan (1) Acute on chronic heart failure with preserved ejection fraction: Plan: slow onset over weeks, orthopnea, non productive cough, marked RICHTER, leg swelling Last Echo 09/16 wtih EF 50% and moderate MR Lasix 40mg IV given x 2 doses with little output. Increased to 80 mg IV twice daily. Held IV Lasix since 12/11 p.m. Today BUN and creatinine continue to go up. Lasix was held yesterday as patient appeared to be slightly over diuresed. I started him on 40 mg of p.o. Lasix 12/13 Seems to be compensated on this dose. Monitor BMP Troponin negative x 2 (2) Acute on chronic respiratory failure with hypoxia and hypercapnia: Plan: Suspected combination of COPD exacerbation and acute on chronic diastolic heart failure Dexamethasone 10mg IV given in ER, on Solu-medrol 40mg IV BID. Discontinued Solu-Medrol on 12/11. No wheezing. Formoterol/budesonide NEBs BID Duonebs q4hwa Cepheid PCR negative, not suspecting infection/pneumonia Limited TTE to assess for pericardial effusion -no pericardial effusion seen (3) Afib: Plan: Permanent Atrial fibrillation Rate controlled without medications at home on 12/12 was rate uncontrolled (now looking back, could have been due to overdiuresis) Was given a dose of IV Lopressor 5 mg with good response on 12/12 Started on Lopressor 12.5 mg p.o. every morning Currently heart rate is rather low in the 40s and the patient states that he feels weak. Will stop Lopressor and follow the patient clinically. Continue anticoagulation with warfarin (4) Finger joint swelling: Plan: Suspected to be gout by PCP and referred to orthopedics Appears to have associated digital myxoid cyst/pseudocyst on exam Improved with steroids Follow up with orthopedics/dermatology outpatient to consider cryotherapy (5) Severe muscle deconditioning: Plan: PT/OT eval (6) ETOH abuse: Plan: monitor for signs of withdrawal Plan VTE Prophyalxis - warfarin Diet - Low sodium, heart healthy Likely discharge to home tomorrow 12/15. Will do a rest and exercise prior to discharge Admission and Anticipated Discharge Date Admission Date: December 10, 2023 Subjective Nurse informed me today that patient's heart rate was in the 40s. The patient states that he feels weak in general. He was recently started on metoprolol 12.5 mg p.o. every morning as he had rapid A-fib in the hospital. The patient has a history of paroxysmal atrial fibrillation and is not on any rate controlling medications at home. Review of Systems Review of Systems: All systems reviewed & are unremarkable except as noted in Subjective Physical Exam Physical Exam: General: Awake, conversant Heart: S1, S2/regular rate and rhythm, no murmur rubs or gallops Lungs: Clear to auscultation bilaterally. Normal effort Abdomen: Soft/nontender/nondistended. No hepatosplenomegaly Extremities: No clubbing/cyanosis. 1-2+ pitting bilateral edema (he says that his legs look much better than when he first came to the hospital) Behavior: Appropriate, cooperative Results & Data Results & Data Vital Signs (Past 12 Hours) Vital Signs Temp Pulse Pulse Resp BP BP Pulse Ox 12/15/23 11:27 37.0 C 76 20 130/67 93 12/15/23 09:50 12/15/23 07:48 36.3 C L 74 20 127/75 99 12/15/23 07:25 77 12/15/23 07:02 75 18 96 12/15/23 02:27 36.6 C 75 18 107/58 L 91 O2 Del Method O2 Flow Rate 12/15/23 11:27 Nasal Cannula 3 12/15/23 09:50 Nasal Cannula 3 12/15/23 07:48 Nasal Cannula 3 12/15/23 07:25 12/15/23 07:02 Nasal Cannula 3 12/15/23 02:27 Nasal Cannula 3 PG Care Time/CCT Total # of Minutes Spent Total Time Spent with Patient: Total time spent is greater than 50% in coordination of care (as documented) at patient's floor/unit and/or counseling patient: Coding Level of Care Code 72261 SUB INP/OBS CARE 2/35MIN Diagnoses Acute on chronic heart failure with preserved ejection fraction I50.33 Acute on chronic respiratory failure with hypoxia and hypercapnia J96.21; J96.22 Permanent atrial fibrillation I48.21 Atrial fibrillation type: permanent Swelling of finger joint, unspecified laterality M25.449 Laterality: unspecified laterality Severe muscle deconditioning R29.898 ETOH abuse F10.10 (3) Afib Atrial fibrillation type: permanent Qualified Code(s): I48.21 - Permanent atrial fibrillation (4) Finger joint swelling Laterality: unspecified laterality Qualified Code(s): M25.449 - Effusion, unspecified hand
[2023-12-16 08:10] VITALS: TEMP 97.5
[2023-12-16 09:06] LABS: BUN Creatinine Ratio 26.4 (10-20); Calcium 8.2 mg/dl (8.6-10.3); Creatinine Clr Calc Pharmacy 78.2 ml/min; Potassium 4.7 mmol/L (3.5-5.1)
--- NOTE | 2023-12-16 11:01 | Discharge Summary ---
Date of Service December 16, 2023 Admission HPI Per Admitting Provider Robert Luna is an 78 year old male with COPD and severe airflow obstruction who presents to the ER with shortness of breath significantly worse over the last 2 weeks. He reports chronically worsening shortness of breath on exertion for years with his COPD. He reports not needing oxygen at baseline but has some for exertion although his pulmonology note mentions noncompliance with supplemental oxygen therapy. Associated cough but no worse than usual. No chest pain. Mainly exertion while trying to get under the bed covers is when he feels the shortness of breath. Associated increased sleeping. He also notes abdominal bloating which he feels is effecting his bleeding but denies abdominal pain, change in bowels, nausea, vomiting, hematochezia or melena. He notes his rescue albuterol inhaler does help slightly with his shortness of breath. He was recently treated with prednisone for suspected gout arthritis of his hands although he cannot remember if the prednisone helped his breathing at all. He denies any recent change in diet. Admission Exam Per Admitting Provider Constitutional: well developed and + acute distress; + not well nourished Eyes: + anicteric sclerae; normal pupil size ENMT: external ear and nose normal, oropharynx normal Respiratory: + labored breathing, + uses accessory mu scles, able to speak in complete sentences and + prolonged expiratory phase; no audible wheezes and no stridor Auscultation: + crackles (coarse throughout) and + rhonchi; breath sounds present, no diminished lung sounds and no wheezes Cardiovascular: Rate/Rhythm: regular rate and + irregularly irregular Heart Sounds: no murmur Extremities: normal capillary refill, + calf tenderness (right) and + pedal edema (2+ b/l equal, right calf > left) Gastrointestinal (Abdomen): normal bowel sounds, soft, nontender, no hepatosplenomegaly Musculoskeletal: Translucent cyst x2 on right third digit with swelling of joint but no pain or erythema DIPJ arthritic changes b/l Neurologic: moves all extremities and awake; not confused Psychiatric: A+Ox3, euthymic affect Principal Diagnosis Acute on chronic diastolic congestive heart failure Acute on chronic hypoxic respiratory failure Paroxysmal atrial fibrillation Discharge Exam General: Awake, conversant Heart: S1, S2/regular rate and rhythm, no murmur rubs or gallops Lungs: Clear to auscultation bilaterally. Normal effort Abdomen: Soft/nontender/nondistended. No hepatosplenomegaly Extremities: No clubbing/cyanosis. 1-2+ pitting bilateral edema (he says that his legs look much better than when he first came to the hospital) Behavior: Appropriate, cooperative Discharge Data Allergies Allergy/AdvReac Type Severity Reaction Status Date / Time No Known Allergies Allergy Verified 12/10/23 18:04 Consultations 12/10/23 19:08 ED Decision to Admit Stat Hospital Course (1) Acute on chronic heart failure with preserved ejection fraction: slow onset over weeks, orthopnea, non productive cough, marked RICHTER, leg swelling Last Echo 09/16 wtih EF 50% and moderate MR. Repeat echo on 12/10 showed no significant change although that mild increase in severity of mitral regurgitation. Lasix 40mg IV given x 2 doses with little output. Increased to 80 mg IV twice daily. Held IV Lasix since 12/11 p.m. Lasix was held temporarily as patient appeared to be slightly over diuresed. I started him on 40 mg of p.o. Lasix 12/13 Seems to be compensated on this dose. Will discharge him on 40 mg of p.o. Lasix Monitor BMP Troponin negative x 2 (2) Acute on chronic respiratory failure with hypoxia and hypercapnia: Suspected combination of COPD exacerbation and acute on chronic diastolic heart failure Dexamethasone 10mg IV given in ER, on Solu-medrol 40mg IV BID. Discontinued Solu-Medrol on 12/11. No wheezing. Formoterol/budesonide NEBs BID Duonebs q4hwa Cepheid PCR negative, not suspecting infection/pneumonia Limited TTE to assess for pericardial effusion -no pericardial effusion seen (3) Afib: Permanent Atrial fibrillation Rate controlled without medications at home on 12/12 was rate uncontrolled (now looking back, could have been due to overdiuresis) Was given a dose of IV Lopressor 5 mg with good response on 12/12 Started on Lopressor 12.5 mg p.o. every morning Later on, heart rate was rather low in the 40s and the patient stated that he felt weak. Stopped the p.o. Lopressor that was started during this hospital stay and observe the patient Today, on the day of discharge, heart rate has been stable. The patient feels fine. Will discharge him without Lopressor as his heart rate did not tolerate the Lopressor well. Continue anticoagulation with warfarin (4) Finger joint swelling: Suspected to be gout by PCP and referred to orthopedics Appears to have associated digital myxoid cyst/pseudocyst on exam Improved with steroids Follow up with orthopedics/dermatology outpatient to consider cryotherapy (5) Severe muscle deconditioning: PT/OT eval (6) ETOH abuse: monitor for signs of withdrawal Plan Discharge to home. Completed a two-step oxygen test that prove that he is requiring 2 L of oxygen at rest and 4 L on exertion. This is because of his diagnosis of CHF and COPD. Total Time Total Time Spent Total Time Spent (In Minutes): 35 Discharge Plan Discharge Items Patient Disposition: Home - Self-Care Reason For Visit: ACUTE ON CHRONIC RESPIRATORY FAILURE WITH HYPOXIA Discharge Diagnosis: Acute on chronic diastolic congestive heart failure Acute on chronic hypoxic respiratory failure Paroxysmal atrial fibrillation Activity: Resume your previous activity Non-emergency contact: Primary Care Provider Call non-emergency contact if: you have any medication questions and your symptoms worsen Follow-up/Referrals: Pro,Tej Redmond MD [Primary Care Provider] - 12/23/23 1:30 pm Diet: Heart Healthy and Low Sodium (2gm) Addtl Attending Provider Instructions: Advised to follow-up with PCP in 1 week Pending Studies at Discharge: No Stand-Alone Forms: [facility] Medications and DC Order Prescriptions: Continued albuterol sulfate [Ventolin HFA] 90 mcg/actuation HFA aerosol inhaler 2 puff inhalation Q6H PRN (Reason: shortness of breath or wheezing) Qty: 6.7 11RF warfarin 5 mg tablet 5 mg PO .COMPLEX Qty: 90 3RF Protocol: Dose Management Condition: Friday (Week One) Dose/Route: 2.5 mg Instruction: 0.5 x 5 mg tablets Condition: Friday Dose/Route: 2.5 mg Instruction: 0.5 x 5 mg tablets Condition: Friday Dose/Route: 7.5 mg Instruction: 1.5 x 5 mg tablets Condition: Friday Dose/Route: 2.5 mg Instruction: 0.5 x 5 mg tablets Condition: Dose/Route: 5 mg Instruction: 1 x 5 mg tablet Condition: Friday Dose/Route: 2.5 mg Instruction: 0.5 x 5 mg tablets Condition: Friday Dose/Route: 5 mg Instruction: 1 x 5 mg tablet Condition: Friday (Week Two) Dose/Route: 2.5 mg Instruction: 0.5 x 5 mg tablets Condition: Friday Dose/Route: 2.5 mg Instruction: 0.5 x 5 mg tablets Condition: Friday Dose/Route: 5 mg Instruction: 1 x 5 mg tablet Condition: Friday Dose/Route: 2.5 mg Instruction: 0.5 x 5 mg tablets Condition: Dose/Route: 5 mg Instruction: 1 x 5 mg tablet Condition: Friday Dose/Route: 2.5 mg Instruction: 0.5 x 5 mg tablets Condition: Friday Dose/Route: 5 mg Instruction: 1 x 5 mg tablet Protocol Text: Adjustment Start Date: Friday11/18/23 INR Value: 1.8 INR Date: 11/18/23 Recheck Date: 12/02/23 Rx Instructions: 5 mg PO Or as directed to achieve an INR of 2-3.; TTS - 5mg, MWFS - 2.5mg ezetimibe [Zetia] 10 mg tablet 10 mg PO DAILY Qty: 90 3RF furosemide [Lasix] 40 mg tablet 40 mg PO .COMPLEX Qty: 120 3RF Rx Instructions: 40 mg PO take 1 tablet daily and can take one additional 40 mg tablet as needed for swelling.; Incruse Ellipta 62.5 mcg/actuation blister with device 1 inh inhalation DAILY Rx Instructions: INHALE 1 PUFF INTO THE LUNGS DAILY budesonide-formoterol [Symbicort] 160-4.5 mcg/actuation HFA aerosol inhaler 2 inh inhalation BID Rx Instructions: INHALE 2 PUFFS by mouth TWICE DAILY and RINSE MOUTH AFTER USE. Discharge Orders: Discharge Order (Routine); Ordered 12/16/23 Ordered By: Bc Gore/Other Patient Handouts: Coping with Heart Failure, Heart Failure Care Admission Data Admit Date/Time: 12/10/23 19:52 Attending Provider: Bc [place] Admit Provider: John Villaseñor Primary Care Provider: Tej Salazar Other Providers: John Villaseñor Other Interventions: Discharge Summary Assessment (RN) Last Done: 12/16/23 11:01
[2023-12-16 11:03] VITALS: PULSE 61; RESP 20; O2SAT 94
[2023-12-16 11:35] VITALS: BP 106/62
== END 2023-12-16 12:25 | disposition home or self-care (01) | DRG 291 ==
LOC: ED 16:04 → 2W 19:52 → SUATTDRO 19:52 → 2W 12-11 00:04